=== PATIENT | male | born 1945 | race Caucasian/White ===

== ENCOUNTER 2020-07-21 13:58 | Inpatient (IN) ==
[2020-07-21] MEDS ORDERED: RAPID SEQUENCE INDUCTION BAG ONE (14:15)
[2020-07-21] MEDS ORDERED: cefTRIAXone SODIUM 1,000 MG/50 ML BAG IV STA (14:27)
[2020-07-21] MEDS ORDERED: AZITHROMYCIN 500 MG in DEXTROSE 5% 250 ML IV STA (14:27)
[2020-07-21] MEDS ORDERED: SODIUM CHLORIDE 0.9% 1000ML 1,000 ML IV SCH ×2 (14:30→20:30)
[2020-07-21] MEDS ORDERED: DEXAMETHASONE SOD INJ 10 MG/ML VIAL IV ONE (14:32)
[2020-07-21] MEDS ORDERED: ALBUTEROL HFA 8 GM INHALER INH ONE (14:32)
[2020-07-21 14:40] LABS: Basophils # (auto) 0.01 K/uL (0-0.2); Basophils % (auto) 0.2 %; Hematocrit (blood only) 42.8 % (42-52); Hemoglobin 14.6 g/dL (14.0-18.0); Immature Granulocytes # (auto) 0.05 K/uL (0.00-0.02); Immature Granulocytes % (auto) 0.8 %; Lymphocytes # (auto) 1.52 K/uL (1.2-3.4); Lymphocytes % (auto) 25.5 %; Mean Corpuscular Hemoglobin 29.9 pg (25-34); Mean Corpuscular Hgb Conc 34.1 g/dL (32-36); Mean Corpuscular Volume 87.7 fL (80-100); Mean Platelet Volume 10.9 fL (7.4-10.4); Monocytes # (auto) 0.61 K/uL (0.11-0.59); Monocytes % (auto) 10.2 %; Neutrophils # (auto) 3.78 K/uL (1.4-6.5); Neutrophils % (auto) 63.3 %; Platelet Count 244 K/uL (130-400); RDW Coefficient of Variation 14.2 % (11.5-14.5); RDW Standard Deviation 45.7 fL (36.4-46.3); Red Blood Count 4.88 M/uL (4.7-6.1); White Blood Count 5.97 K/uL (4.8-10.8)
--- NOTE | 2020-07-21 14:47 | Emergency Department Note ---
History of Present Illness General Chief complaint: Lethargic Time Seen by Provider: 07/21/20 14:13 Source: patient Mode of arrival: EMS Limitations: no limitations History of Present Illness Provider complaint: Lethargic This is a 75-year-old male who presents to the ED with a chief complaint of lethargy. The patient was diagnosed with COVID last , 1 week ago. He had the test done last Saturday. The patient has been doing okay but was found lethargic by family today. He seems confused. Pulse ox on room air when EMS arrived was 50%. 15 L brings him up into the high 80s to low 90s. He has had decreased p.o. intake. The patient's blood sugar here was 454 on arrival. He denies any cough. He does have some shortness of breath. He is able to speak full sentences without too much difficulty. He has generalized weakness. No additional symptoms. Home Medications Home Medications Medication Instructions Recorded Confirmed Type mupirocin 2 % topical ointment 1 appln TOP DAILY PRN gm 08/04/19 07/21/20 History repaglinide 2 mg tablet 2 mg PO AC 08/04/19 07/21/20 History sitagliptin 50 mg tablet 50 mg PO QAM 08/04/19 07/21/20 History triamcinolone acetonide 0.1 % 1 appln TOP DAILY PRN 08/04/19 07/21/20 History topical ointment atorvastatin 20 mg PO QPM 07/21/20 07/21/20 History glyburide 2.5 mg PO DAILYBB 07/21/20 07/21/20 History pioglitazone 45 mg PO QAM 07/21/20 07/21/20 History semaglutide [Rybelsus] 7 mg PO QAM 07/21/20 07/21/20 History valsartan-hydrochlorothiazide 1 tab PO QAM 07/21/20 07/21/20 History [Diovan HCT] Allergies Allergy/AdvReac Type Severity Reaction Status Date / Time No Known Allergies Allergy Verified 05/10/20 08:44 Past Med/Surg History Medical History (Updated 07/21/20 @ 17:42 by Jermaine Benavidez DO) CKD (chronic kidney disease), stage III Diabetes mellitus Dyslipidemia Vitamin D deficiency Surgical History (Updated 07/21/20 @ 17:20 by Dawna Montejo PA-C) History of tonsillectomy S/P complete thyroidectomy Family History (Updated 07/21/20 @ 17:21 by Dawna Montejo PA-C) Father Heart disease Mother Rheumatoid arthritis Social History (Updated 07/21/20 @ 17:21 by Dawna Montejo PA-C) Smoking Status: Former smoker Smoking End Date: 1992; Hx Alcohol Use: Yes (3 per week) Alcohol type: beer Alcohol Intake Frequency: 2-4 x/Month Hx Substance Use: No Feels Safe at Home: Yes Review of Systems A total of 10 systems reviewed and were otherwise negative Physical Exam Vital Signs Vital Signs - 24 hr 07/21/20 14:08 07/21/20 14:10 07/21/20 14:15 Temperature 37.1 C Temperature Source Oral Pulse Rate 102 H 108 H Pulse Rate from SpO2 Sensor 105 H Respiratory Rate 24 29 H Respiratory Effort / Characteristics Spontaneous Blood Pressure 119/67 Blood Pressure Mean 84 Pulse Oximetry 65 L 86 L 88 L Oxygen Delivery Method Room Air Non-rebreather Non-rebreather Oxygen Flow Rate 15 15 Sepsis Recent Fever Within 48 Hours No Sepsis New/Unexplained Change in Mental Status Yes Sepsis Action Taken by Nursing Physician Notified 07/21/20 14:16 07/21/20 14:28 07/21/20 14:30 Temperature Temperature Source Pulse Rate 108 H 108 H Pulse Rate from SpO2 Sensor 107 H 90 Respiratory Rate 32 H 29 H Respiratory Effort / Characteristics Blood Pressure 129/74 Blood Pressure Mean 82 Pulse Oximetry 85 L 88 L 91 Oxygen Delivery Method Non-rebreather Non-rebreather Non-rebreather Oxygen Flow Rate 15 15 15 Sepsis Recent Fever Within 48 Hours Sepsis New/Unexplained Change in Mental Status Sepsis Action Taken by Nursing 07/21/20 14:31 07/21/20 14:45 07/21/20 15:00 Temperature Temperature Source Pulse Rate 105 H 104 H 104 H Pulse Rate from SpO2 Sensor 96 H 84 85 Respiratory Rate 29 H 26 H 27 H Respiratory Effort / Characteristics Blood Pressure 128/84 132/69 Blood Pressure Mean 89 89 Pulse Oximetry 85 L 92 93 Oxygen Delivery Method Non-rebreather Non-rebreather Non-rebreather Oxygen Flow Rate 15 15 15 Sepsis Recent Fever Within 48 Hours Sepsis New/Unexplained Change in Mental Status Sepsis Action Taken by Nursing 07/21/20 15:15 07/21/20 15:30 07/21/20 15:45 Temperature Temperature Source Pulse Rate 107 H Pulse Rate from SpO2 Sensor 96 H 109 H Respiratory Rate Respiratory Effort / Characteristics Blood Pressure 117/70 120/66 117/63 Blood Pressure Mean 91 77 100 Pulse Oximetry 92 86 L Oxygen Delivery Method Non-rebreather Non-rebreather Oxygen Flow Rate 15 15 Sepsis Recent Fever Within 48 Hours Sepsis New/Unexplained Change in Mental Status Sepsis Action Taken by Nursing 07/21/20 16:00 07/21/20 16:15 07/21/20 16:30 Temperature Temperature Source Pulse Rate 103 H 106 H 105 H Pulse Rate from SpO2 Sensor 104 H 106 H Respiratory Rate 15 31 H 26 H Respiratory Effort / Characteristics Blood Pressure 110/63 98/61 L 109/59 L Blood Pressure Mean 79 66 82 Pulse Oximetry 86 L 88 L Oxygen Delivery Method Oxygen Flow Rate Sepsis Recent Fever Within 48 Hours Sepsis New/Unexplained Change in Mental Status Sepsis Action Taken by Nursing 07/21/20 16:47 07/21/20 16:59 07/21/20 17:15 Temperature Temperature Source Pulse Rate 101 H 105 H 102 H Pulse Rate from SpO2 Sensor 101 H 105 H 99 H Respiratory Rate 24 21 27 H Respiratory Effort / Characteristics Blood Pressure 98/62 L 111/69 117/67 Blood Pressure Mean 70 85 77 Pulse Oximetry 87 L 89 L 91 Oxygen Delivery Method Non-rebreather Non-rebreather Non-rebreather Oxygen Flow Rate 15 15 15 Sepsis Recent Fever Within 48 Hours Sepsis New/Unexplained Change in Mental Status Sepsis Action Taken by Nursing CONSTITUTIONAL/VITAL SIGNS: Reviewed / noted above. GENERAL: Non-toxic in appearance. INTEGUMENTARY: Warm, dry, and Ant[place]. HEAD: Normocephalic. EYES: without scleral icterus or trauma. ENT/OROPHARYNX: clear and moist. LYMPHADENOPATHY/NECK: Is supple without lymphadenopathy or meningismus. RESPIRATORY: Lungs diminished with some minimal bilateral crackles. Patient able to speak in full sentences. CARDIOVASCULAR: Regular rate and rhythm. GI/ABDOMEN: Soft and nontender. No organomegaly or pulsatile mass. No rebound or guarding. Normal bowel sounds. EXTREMITIES: Warm and well perfused. BACK: No CVA tenderness. NEUROLOGICAL: Intact without focal deficits. PSYCHIATRIC: normal affect. MUSCULOSKELETAL: Normally developed with good muscle tone. TRIAGE NURSING DOCUMENTATION REVIEWED. Procedures ABG Interpretation ABG Interpretation 1: ABG Results: 7.39/32 2.9% on 15 L Interpretation: abnormal and metabolic acidosis Additional Comments: Hypoxia but stable on 15 L Course Administered Medications Discontinued Medications Albuterol (Albuterol Hfa 8 Gm Inhaler) 2 puffs INH NOW ONE Stop: 07/21/20 14:33 Last Admin: 07/21/20 16:11 Dose: 2 puffs Documented by: [id number] Dexamethasone (Dexamethasone Sod Inj 10 Mg/Ml Vial) 10 mg IV NOW ONE Stop: 07/21/20 14:33 Last Admin: 07/21/20 16:11 Dose: 10 mg Documented by: [id number] Sodium Chloride (Nss 1000ml) 1,000 mls @ 999 mls/hr IV .Q1H1M JACKY Stop: 07/21/20 15:30 Last Infusion: 07/21/20 16:12 Dose: 0 mls/hr Documented by: [id number] Admin: 07/21/20 14:36 Dose: 999 mls/hr Documented by: [id number] Azithromycin 500 mg/ Dextrose 255 mls @ 127.5 mls/hr IV NOW STA Stop: 07/21/20 16:26 Last Admin: 07/21/20 16:41 Dose: 127.5 mls/hr Documented by: [id number] Ceftriaxone Sodium (Rocephin) 1,000 mg in 50 mls @ 100 mls/hr IV NOW STA Stop: 07/21/20 14:56 Last Infusion: 07/21/20 16:41 Dose: 0 mls/hr Documented by: [id number] Admin: 07/21/20 16:11 Dose: 100 mls/hr Documented by: [id number] Insulin Human Regular (Novolin-R Insulin Per Unit Charge) 4 units SC NOW STA Stop: 07/21/20 16:27 Last Admin: 07/21/20 16:41 Dose: 4 units Documented by: [id number] Cosigned by: [id number] Miscellaneous (Rapid Sequence Induction Bag) Confirm Administered Dose 1 ea .ROUTE .STK-MED ONE Stop: 07/21/20 14:16 Last Admin: 07/21/20 14:59 Dose: Not Given Documented by: [id number] Critical Care Time Critical Care Time: Yes Total Critical Care Time: 45 I have personally spent 45 minutes of critical care time in the direct management of this patient. This includes bedside care, interpretation of diagnostic studies, and testing, discussion with consultants, patient, and family members, and other required patient management activities. This 45 minutes is in excess of all separately billable procedures. Medical Decision Making Differential Diagnosis The differential was considered includes acute myocardial infarction, acute coronary syndrome, myocarditis, pericarditis, pericardial effusions /tamponad, esophageal perforation, pulmonary embolism, pneumonia, pneumothorax, cardiomyopathy, congestive heart, anemia , COPD/asthma exacerbation. Medical Records Attestation: I reviewed the patient's medical records. Home Medications Current Medication List: was personally reviewed by me Laboratory Data Attestation: I reviewed the patient's lab results. Result diagrams: 07/21/20 14:25 07/21/20 16:07 Lab Results 07/21/20 07/21/20 07/21/20 Range/Units 14:15 14:24 14:25 WBC (4.8-10.8) K/uL RBC (4.7-6.1) M/uL Hgb (14.0-18.0) g/dL Hct (42-52) % MCV (80-100) fL MCH (25-34) pg MCHC (32-36) g/dL RDW Std Deviation (36.4-46.3) fL RDW Coeff of Lesia (11.5-14.5) % Plt Count (130-400) K/uL MPV (7.4-10.4) fL Immature Gran % (Auto) % Neut % (Auto) % Lymph % (Auto) % [place] % (Auto) % Eos % (Auto) % Baso % (Auto) % Neut # (Auto) (1.4-6.5) K/uL Lymph # (Auto) (1.2-3.4) K/uL [place] # (Auto) (0.11-0.59) K/uL Eos # (Auto) (0-0.5) K/uL Baso # (Auto) (0-0.2) K/uL Immature Gran # (Auto) (0.00-0.02) K/uL PT (9.0-12.0) Seconds INR (0.9-1.1) APTT (21.0-31.0) Seconds PTT Ratio ABG pH (7.35-7.45) ABG pCO2 (35-46) mmHg ABG pO2 (80-95) mmHg ABG HCO3 (19-24) mmol/L ABG O2 Saturation (90-95) % ABG Base Excess (-9-1.8) mEq/L Andres Test (Pos) Barometric Pressure mm/Hg Oxygen Given Sodium 131 L (136-145) mmol/L Potassium (3.5-5.1) mmol/L Chloride 99 (98-107) mmol/L Carbon Dioxide 20 L (21-32) mmol/L Anion Gap 12.0 H (3-11) BUN 81 H (7-18) mg/dl Creatinine 2.47 H (0.6-1.4) mg/dl Est Cr Clr Drug Dosing 31.7 ml/min Est GFR ( Amer) 28.1 Est GFR (Non-Af Amer) 24.2 BUN/Creatinine Ratio 32.6 H (10-20) Glucose 441 H* (70-99) mg/dl POC Glucose 454 H* (70-99) mg/dl Lactate (0.4-2.0) mmol/L Calcium 8.7 (8.5-10.1) mg/dl Total Bilirubin 0.7 (0.2-1) mg/dl AST (15-37) U/L ALT 70 (12-78) U/L Alkaline Phosphatase 79 (45-117) U/L Troponin I 0.020 (0-0.045) ng/ml NT-Pro-B Natriuret Pep 124 (0-1800) pg/ml Total Protein 7.5 (6.4-8.2) gm/dl Albumin 2.9 L (3.4-5.0) gm/dl Globulin 4.6 H (2.5-4.0) gm/dl Albumin/Globulin Ratio 0.6 L (0.9-2) Beta-Hydroxybutyric Acd (0.2-2.81) mg/dl Adenovirus (PCR) Not Detected (NotDetected) B. pertussis DNA (PCR) Not Detected (NotDetected) B.parapertussis DNA PCR Not Detected (NotDetected) C. pneumoniae DNA (PCR) Not Detected (NotDetected) Coronavirus OC43 (PCR) Not Detected (NotDetected) Coronavirus HKU1 (PCR) Not Detected (NotDetected) Coronavirus 229E (PCR) Not Detected (NotDetected) COVID-19 PCR DETECTED A* (NotDetected) Coronavirus NL63 (PCR) Not Detected (NotDetected) Human Metapneumovir PCR Not Detected (NotDetected) Influenza Type A (PCR) Not Detected (NotDetected) Influenza Type B (PCR) Not Detected (NotDetected) M. pneumoniae (PCR) Not Detected (NotDetected) Parainfluenza 1 (PCR) Not Detected (NotDetected) Parainfluenza 2 (PCR) Not Detected (NotDetected) Parainfluenza 3 (PCR) Not Detected (NotDetected) Parainfluenza 4 (PCR) Not Detected (NotDetected) RSV (PCR) Not Detected (NotDetected) Entero/Rhino (PCR) Not Detected (NotDetected) 07/21/20 07/21/20 07/21/20 Range/Units 14:25 14:25 15:16 WBC 5.97 (4.8-10.8) K/uL RBC 4.88 (4.7-6.1) M/uL Hgb 14.6 (14.0-18.0) g/dL Hct 42.8 (42-52) % MCV 87.7 (80-100) fL MCH 29.9 (25-34) pg MCHC 34.1 (32-36) g/dL RDW Std Deviation 45.7 (36.4-46.3) fL RDW Coeff of Lesia 14.2 (11.5-14.5) % Plt Count 244 (130-400) K/uL MPV 10.9 H (7.4-10.4) fL Immature Gran % (Auto) 0.8 % Neut % (Auto) 63.3 % Lymph % (Auto) 25.5 % [place] % (Auto) 10.2 % Eos % (Auto) 0.0 % Baso % (Auto) 0.2 % Neut # (Auto) 3.78 (1.4-6.5) K/uL Lymph # (Auto) 1.52 (1.2-3.4) K/uL [place] # (Auto) 0.61 H (0.11-0.59) K/uL Eos # (Auto) 0.00 (0-0.5) K/uL Baso # (Auto) 0.01 (0-0.2) K/uL Immature Gran # (Auto) 0.05 H (0.00-0.02) K/uL PT 11.4 (9.0-12.0) Seconds INR 1.1 (0.9-1.1) APTT 30.7 (21.0-31.0) Seconds PTT Ratio 1.1 ABG pH 7.39 (7.35-7.45) ABG pCO2 32 L (35-46) mmHg ABG pO2 65 L (80-95) mmHg ABG HCO3 19 (19-24) mmol/L ABG O2 Saturation 90.9 (90-95) % ABG Base Excess -4.8 (-9-1.8) mEq/L Andres Test Pos (Pos) Barometric Pressure 733.7 mm/Hg Oxygen Given 15 LITERS Sodium (136-145) mmol/L Potassium (3.5-5.1) mmol/L Chloride (98-107) mmol/L Carbon Dioxide (21-32) mmol/L Anion Gap (3-11) BUN (7-18) mg/dl Creatinine (0.6-1.4) mg/dl Est Cr Clr Drug Dosing ml/min Est GFR ( Amer) Est GFR (Non-Af Amer) BUN/Creatinine Ratio (10-20) Glucose (70-99) mg/dl POC Glucose (70-99) mg/dl Lactate (0.4-2.0) mmol/L Calcium (8.5-10.1) mg/dl Total Bilirubin (0.2-1) mg/dl AST (15-37) U/L ALT (12-78) U/L Alkaline Phosphatase (45-117) U/L Troponin I (0-0.045) ng/ml NT-Pro-B Natriuret Pep (0-1800) pg/ml Total Protein (6.4-8.2) gm/dl Albumin (3.4-5.0) gm/dl Globulin (2.5-4.0) gm/dl Albumin/Globulin Ratio (0.9-2) Beta-Hydroxybutyric Acd (0.2-2.81) mg/dl Adenovirus (PCR) (NotDetected) B. pertussis DNA (PCR) (NotDetected) B.parapertussis DNA PCR (NotDetected) C. pneumoniae DNA (PCR) (NotDetected) Coronavirus OC43 (PCR) (NotDetected) Coronavirus HKU1 (PCR) (NotDetected) Coronavirus 229E (PCR) (NotDetected) COVID-19 PCR (NotDetected) Coronavirus NL63 (PCR) (NotDetected) Human Metapneumovir PCR (NotDetected) Influenza Type A (PCR) (NotDetected) Influenza Type B (PCR) (NotDetected) M. pneumoniae (PCR) (NotDetected) Parainfluenza 1 (PCR) (NotDetected) Parainfluenza 2 (PCR) (NotDetected) Parainfluenza 3 (PCR) (NotDetected) Parainfluenza 4 (PCR) (NotDetected) RSV (PCR) (NotDetected) Entero/Rhino (PCR) (NotDetected) 07/21/20 07/21/20 Range/Units 15:16 16:07 WBC (4.8-10.8) K/uL RBC (4.7-6.1) M/uL Hgb (14.0-18.0) g/dL Hct (42-52) % MCV (80-100) fL MCH (25-34) pg MCHC (32-36) g/dL RDW Std Deviation (36.4-46.3) fL RDW Coeff of Lesia (11.5-14.5) % Plt Count (130-400) K/uL MPV (7.4-10.4) fL Immature Gran % (Auto) % Neut % (Auto) % Lymph % (Auto) % [place] % (Auto) % Eos % (Auto) % Baso % (Auto) % Neut # (Auto) (1.4-6.5) K/uL Lymph # (Auto) (1.2-3.4) K/uL [place] # (Auto) (0.11-0.59) K/uL Eos # (Auto) (0-0.5) K/uL Baso # (Auto) (0-0.2) K/uL Immature Gran # (Auto) (0.00-0.02) K/uL PT (9.0-12.0) Seconds INR (0.9-1.1) APTT (21.0-31.0) Seconds PTT Ratio ABG pH (7.35-7.45) ABG pCO2 (35-46) mmHg ABG pO2 (80-95) mmHg ABG HCO3 (19-24) mmol/L ABG O2 Saturation (90-95) % ABG Base Excess (-9-1.8) mEq/L Andres Test (Pos) Barometric Pressure mm/Hg Oxygen Given Sodium (136-145) mmol/L Potassium 4.7 (3.5-5.1) mmol/L Chloride (98-107) mmol/L Carbon Dioxide (21-32) mmol/L Anion Gap (3-11) BUN (7-18) mg/dl Creatinine (0.6-1.4) mg/dl Est Cr Clr Drug Dosing ml/min Est GFR ( Amer) Est GFR (Non-Af Amer) BUN/Creatinine Ratio (10-20) Glucose (70-99) mg/dl POC Glucose (70-99) mg/dl Lactate 1.5 (0.4-2.0) mmol/L Calcium (8.5-10.1) mg/dl Total Bilirubin (0.2-1) mg/dl AST 49 H (15-37) U/L ALT (12-78) U/L Alkaline Phosphatase (45-117) U/L Troponin I (0-0.045) ng/ml NT-Pro-B Natriuret Pep (0-1800) pg/ml Total Protein (6.4-8.2) gm/dl Albumin (3.4-5.0) gm/dl Globulin (2.5-4.0) gm/dl Albumin/Globulin Ratio (0.9-2) Beta-Hydroxybutyric Acd 2.30 (0.2-2.81) mg/dl Adenovirus (PCR) (NotDetected) B. pertussis DNA (PCR) (NotDetected) B.parapertussis DNA PCR (NotDetected) C. pneumoniae DNA (PCR) (NotDetected) Coronavirus OC43 (PCR) (NotDetected) Coronavirus HKU1 (PCR) (NotDetected) Coronavirus 229E (PCR) (NotDetected) COVID-19 PCR (NotDetected) Coronavirus NL63 (PCR) (NotDetected) Human Metapneumovir PCR (NotDetected) Influenza Type A (PCR) (NotDetected) Influenza Type B (PCR) (NotDetected) M. pneumoniae (PCR) (NotDetected) Parainfluenza 1 (PCR) (NotDetected) Parainfluenza 2 (PCR) (NotDetected) Parainfluenza 3 (PCR) (NotDetected) Parainfluenza 4 (PCR) (NotDetected) RSV (PCR) (NotDetected) Entero/Rhino (PCR) (NotDetected) Imaging Data Radiologist's Impression: XR chest 1V portable CLINICAL HISTORY: Dyspnea COMPARISON STUDY: No previous studies for comparison. FINDINGS: The heart is the upper limits of normal in size. There are bilateral interstitial pulmonary opacities with a lower lung zone predominance. Diagnostic considerations include chronic interstitial lung disease, an acute interstitial inflammatory process, or pulmonary edema superimposed on chronic lung disease. There are no significant pleural effusions.[Clinical and radiographic follow-up is advocated IMPRESSION: Nonspecific bilateral interstitial pulmonary opacities with a lower lung zone predominance. ECG Data Attestation: I personally reviewed and interpreted this ECG as follows: Indication: + SOB/dyspnea Rate (beats per minute): [address] segments: no ST elevation ECG Findings: + PVCs MDM Narrative This is a 75-year-old male who presents with hypoxia and confusion at home. He has had decreased p.o. intake and lethargy. He was found to have 50% saturations on room air at home by EMS. On my exam, the patient is more alert. He answers most questions appropriately. He is on 15 L saturating 87%. He is able to speak full sentences with out much difficulty. Heart rate was 105 and his blood pressure was normal. A blood sugar when he arrived was 454. The patient ABG suggest hypoxia although it appears the patient has adequate comp ensated at this time. His BUN is 81 and creatinine is 2.47. This likely represents acute renal failure although a baseline is not present in the system. The patient is hyperglycemic with a blood sugar of 441. Troponin was negative. Lactic acid is negative. CBC was normal. The patient was given 1 L of normal saline IV. He was given an albuterol MDI, IV Decadron, IV Rocephin, IV Zithromax as well as subcu insulin. At this point, the patient although hypoxic is speaking in full sentences. He is in no respiratory distress. I do not feel the patient requires emergent intubation or BiPAP at this point because his clinical evaluation of his breathing appears adequate despite pulse ox binta dings in the 80s. He will be seen by the hospitalist for further inpatient evaluation and care Impression & Plan Respiratory failure, Bilateral interstitial pneumonia, COVID-19, Acute renal failure Discharge Plan Visit Data Chief Complaint: Lethargic ED Provider: Jermaine Benavidez Discharge Problem: Respiratory failure, Bilateral interstitial pneumonia, COVID-19, Acute renal failure Patient Disposition: Being Evaluated by Hospitalist Forms Stand Alone Forms: My [facility] Prescriptions Prescriptions: No Action triamcinolone acetonide 0.1 % ointment 1 appln TOP DAILY PRN (Reason: Skin Irritation) RF: 0 mupirocin 2 % ointment 1 appln TOP DAILY PRN (Reason: Skin Irritation) RF: 0 Januvia 50 mg tablet 50 mg PO QAM RF: 0 repaglinide [Prandin] 2 mg tablet 2 mg PO AC RF: 0 atorvastatin 20 mg tablet 20 mg PO QPM RF: 0 glyburide 2.5 mg tablet 2.5 mg PO DAILYBB RF: 0 valsartan-hydrochlorothiazide [Diovan HCT] 160-12.5 mg tablet 1 tab PO QAM RF: 0 pioglitazone 45 mg tablet 45 mg PO QAM RF: 0 Rybelsus 7 mg tablet 7 mg PO QAM RF: 0 Referrals Referrals: William Barfield DO [Primary Care Provider] - Discharge Problem: Respiratory failure Qualifiers: Chronicity: acute Respiratory failure complication: hypoxia Qualified Code(s): J96.01 - Acute respiratory failure with hypoxia Acute renal failure Qualifiers: Acute renal failure type: unspecified Qualified Code(s): N17.9 - Acute kidney failure, unspecified
[2020-07-21 14:55] LABS: INR 1.1 (0.9-1.1); Partial Thromboplastin Ratio 1.1; Partial Thromboplastin Time 30.7 Seconds (21.0-31.0); Prothrombin Time 11.4 Seconds (9.0-12.0)
[2020-07-21 15:35] LABS: Allen Test Pos (Pos); Base Excess ABG -4.8 mEq/L (-9-1.8); HCO3 ABG 19 mmol/L (19-24); Oxygen Saturation ABG 90.9 % (90-95); PCO2 ABG 32 mmHg (35-46); PO2 ABG 65 mmHg (80-95); pH ABG 7.39 (7.35-7.45)
[2020-07-21 15:44] LABS: Adenovirus PCR Not Detected (NotDetected); Bordetella parapertussis PCR Not Detected (NotDetected); Bordetella pertussis PCR Not Detected (NotDetected); Chlamydia pneumoniae PCR Not Detected (NotDetected); Coronavirus 229E PCR Not Detected (NotDetected); Coronavirus HKU1 PCR Not Detected (NotDetected); Coronavirus NL63 PCR Not Detected (NotDetected); Coronavirus OC43PCR Not Detected (NotDetected); Human Metapneumovirus PCR Not Detected (NotDetected); Influenza A PCR Not Detected (NotDetected); Influenza B PCR Not Detected (NotDetected); Mycoplasma pneumoniae PCR Not Detected (NotDetected); Parainfluenza Virus 1 PCR Not Detected (NotDetected); Parainfluenza Virus 2 PCR Not Detected (NotDetected); Parainfluenza Virus 3 PCR Not Detected (NotDetected); Parainfluenza Virus 4 PCR Not Detected (NotDetected); Respiratory Syncytial VirusPCR Not Detected (NotDetected); Rhinovirus/Enterovirus PCR Not Detected (NotDetected)
[2020-07-21 15:48] LABS: Albumin Globulin Ratio 0.6 (0.9-2); Albumin Level 2.9 gm/dl (3.4-5.0); BUN Creatinine Ratio 32.6 (10-20); Bilirubin,Total 0.7 mg/dl (0.2-1); Calcium 8.7 mg/dl (8.5-10.1); Creatinine Clr Calc Pharmacy 31.7 ml/min; Est GFR (African American) 28.1; Est GFR (Non-African American) 24.2; Globulin 4.6 gm/dl (2.5-4.0); Total Protein 7.5 gm/dl (6.4-8.2); Troponin I 0.02 ng/ml (0-0.045)
[2020-07-21 15:52] LABS: Coronavirus CoV-2 (COVID19)PCR DETECTED (NotDetected)
--- NOTE | 2020-07-21 15:59 | XRay Report ---
XR chest 1V portable CLINICAL HISTORY: Dyspnea COMPARISON STUDY: No previous studies for comparison. FINDINGS: The heart is the upper limits of normal in size. There are bilateral interstitial pulmonary opacities with a lower lung zone predominance. Diagnostic considerations include chronic interstitia l lung disease, an acute interstitial inflammatory process, or pulmonary edema superimposed on chroni c lung disease. There are no significant pleural effusions.[Clinical and radiographic follow-up is ad vocated IMPRESSION: Nonspecific bilateral interstitial pulmonary opacities with a lower lung zone predominanc e. ACT 112: Negative or not required by law. Electronically signed by: Yomi Saab M.D. 07/21/2020 3:58 PM
[2020-07-21] MEDS ORDERED: NovoLIN-R INSULIN PER UNIT CHARGE SC STA (16:26)
[2020-07-21 16:32] LABS: Potassium 4.7 mmol/L (3.5-5.1)
[2020-07-21 16:38] LABS: Beta-Hydroxybutyrate 2.3 mg/dl (0.2-2.81)
--- NOTE | 2020-07-21 17:28 | History & Physical Report ---
Date of Service July 21, 2020 Assessment & Plan (1) Respiratory failure: Acute respiratory failure with hypoxia COVID-19 pneumonia CXR:Nonspecific bilateral interstitial pulmonary opacities with a lower lung zone predominance. Discussed with patient regarding initiation Remdesivir--Risks and benefits explained:Patient agrees to proceed Currently given renal function, Remdesivir will not be started We will consider starting Remdesivir if renal function improves No leukocytosis Or lymphopenia on presentation Procalcitonin, CRP, Ferritin, procalcitonin, D-dimer, CPK pending Blood cultures ordered Discussed with pulmonology Started on dexamethasone Empirically started on azithromycin, ceftriaxone Monitor QTC IV fluids given KADEN Monitor volume status Albuterol as needed Consulted pulmonology Continue supplemental oxygen to keep sats greater than or equal to 94% KADEN on CKD III Hyponatremia in setting of hypoglycemia Prerenal secondary to GI losses Baseline Cr:1.6 Cr: 2.47 Hold valsartan, HCTZ IV fluids Nephrology consulted Monitor renal function Avoid nephrotoxic agents as able Hyperglycemia DM II HbA1c 9.3 on May 10, 2020 Update A1c Hold p.o. medications Insulin therapy while hospitalized Glycemic pharmacy consulted Diarrhea Likely due to COVID Check Stool studies Hyperlipidemia Continue atorvastatin Hypertension Hold valsartan, HCTZ given KADEN Monitor blood pressure H/O basal cell carcinoma H/O squamous cell carcinoma As per records H/O Vitamin D deficiency Check Vit D levels DVT prophylaxis Heparin SQ CODE STATUS Full code--as per my discussion with the patient. Disposition To be determined History of Present Illness Chief Complaint: Cough, shortness of breath, diarrhea Primary Care Provider: William Barfield DO Patient is a 75-year-old male with history of diabetes mellitus, hypertension, CKD stage III, hypertensive retinopathy, dyslipidemia and other medical problems presents with history of worsening shortness of breath, wheezing, shakiness, cough since about 1 week duration. He was diagnosed to have COVID last --test done at local [facility]. He states that cough is nonproductive. Also noticed to have diarrhea since 1 week duration--loose watery, about 2 times per day, nonbloody. He was unsure how he contracted COVID. Reports generalized weakness and tiredness. As per the ER physician, patient was found to be confused by family today and patient's son called for ambulance. Patient reported that he was now confused throughout the course. He was noted to have oxygen saturations in the 50s by EMS and was placed on 15 L of nonrebreather. Currently while in ED saturations improved to low 90s. Denies any history of chest pain, palpitations, dizziness, pedal edema, hemoptysis, fever, fall, LOC, headache, change in vision, nausea, vomiting, abdominal pain, blood in stools, dysuria, hematuria, recent change in medications. Allergies Allergy/AdvReac Type Severity Reaction Status Date / Time No Known Allergies Allergy Verified 05/10/20 08:44 Home Medications Home Medications Medication Instructions Recorded Confirmed Type mupirocin 2 % topical ointment 1 appln TOP DAILY PRN gm 08/04/19 07/21/20 His tory repaglinide 2 mg tablet 2 mg PO AC 08/04/19 07/21/20 History sitagliptin 50 mg tablet 50 mg PO QAM 08/04/19 07/21/20 History triamcinolone acetonide 0.1 % 1 appln TOP DAILY PRN 08/04/19 07/21/20 History topical ointment atorvastatin 20 mg PO QPM 07/21/20 07/21/20 History glyburide 2.5 mg PO DAILYBB 07/21/20 07/21/20 History pioglitazone 45 mg PO QAM 07/21/20 07/21/20 History semaglutide [Rybelsus] 7 mg PO QAM 07/21/20 07/21/20 History valsartan-hydrochlorothiazide 1 tab PO QAM 07/21/20 07/21/20 History [Diovan HCT] Past Med/Surg History Medical History CKD (chronic kidney disease), stage III Diabetes mellitus Dyslipidemia Vitamin D deficiency Surgical History History of tonsillectomy S/P complete thyroidectomy Family History Father Heart disease Mother Rheumatoid arthritis Social History Smoking Status: Former smoker Smoking End Date: 1992; Hx Alcohol Use: Yes (3 per week) Alcohol type: beer Alcohol Intake Frequency: 2-4 x/Month Hx Substance Use: No Feels Safe at Home: Yes Review of Systems Review of Systems: All systems reviewed & are unremarkable except as noted in HPI & below Physical Exam Physical Exam: Physical Exam: Vitals signs as noted above General Appearance:Moderately built and nourished, no apparent distress Head: normocephalic, Atraumatic Eyes: normal inspection, EOMI Neck: supple, Trachea midline Respiratory/Chest: Decreased breath sounds, +Basal Crackles Cardiovascular: S1, S2, No murmur Abdomen/GI:Soft, Non tender, Bowel sounds present Extremities/Musculoskelatal:normal inspection, no edema Neurologic/Psych:AAOX3, grossly no focal neurological deficits Skin: normal color, warm Results & Data Results & Data ([facility]) Vital Signs (Past 12 Hours) Vital Signs Temp Pulse Resp BP Pulse Ox 07/21/20 14:45 104 H 26 H 128/84 92 07/21/20 14:31 105 H 29 H 85 L 07/21/20 14:30 108 H 29 H 129/74 91 07/21/20 14:28 88 L 07/21/20 14:16 108 H 32 H 85 L 07/21/20 14:15 108 H 29 H 119/67 88 L 07/21/20 14:10 86 L 07/21/20 14:08 37.1 C 102 H 24 65 L Laboratory Results Short CBC 07/21/20 Range/Units 14:25 WBC 5.97 (4.8-10.8) K/uL Hgb 14.6 (14.0-18.0) g/dL Hct 42.8 (42-52) % Plt Count 244 (130-400) K/uL BMP 07/21/20 07/21/20 14:25 16:07 Sodium 131 L Potassium 4.7 Chloride 99 Carbon Dioxide 20 L BUN 81 H Creatinine 2.47 H Glucose 441 H* Calcium 8.7 Cardiac Enzymes 07/21/20 Range/Units 14:25 Troponin I 0.020 (0-0.045) ng/ml Liver Function 07/21/20 07/21/20 Range/Units 14:25 16:07 Total Bilirubin 0.7 (0.2-1) mg/dl AST 49 H (15-37) U/L ALT 70 (12-78) U/L Alkaline Phosphatase 79 (45-117) U/L Albumin 2.9 L (3.4-5.0) gm/dl Diagnostic Findings CXR:Nonspecific bilateral interstitial pulmonary opacities with a lower lung zone predominance. ECG Additional Comments: EKG: Sinus tachycardia with occasional PVCs Left axis deviation Poor R wave progression, QTC 417 (1) Respiratory failure Chronicity: acute Respiratory failure complication: hypoxia Qualified Code(s): J96.01 - Acute respiratory failure with hypoxia
--- NOTE | 2020-07-21 18:00 | Electrocardiogram Report ---
Test Reason : Blood Pressure : / mmHG Vent. Rate : 109 BPM Atrial Rate : 109 BPM P-R Int : 190 ms QRS Dur : 070 ms QT Int : 310 ms P-R-T Axes : 021 -65 050 degrees QTc Int : 417 ms Sinus tachycardia with occasional Premature ventricular complexes Possible Left atrial enlargement Left axis deviation Inferior infarct , age undetermined Poor R wave progression, consider anterior MN vs. lead placement vs. LVH Abnormal ECG When compared with ECG of 20-NOV-1993 10:58, Premature ventricular complexes are now Present Inferior infarct is now Present Confirmed by David Segura ([id number]) on 07/21/2020 6:00:31 PM Referred By: Confirmed By:Adrian Segura
[2020-07-21] MEDS ORDERED: GLUCAGON FOR INJ 1 MG VIAL SQ PRN (20:18)
[2020-07-21] MEDS ORDERED: ALBUTEROL HFA 8 GM INHALER INH PRN (20:18)
[2020-07-21] MEDS ORDERED: ONDANSETRON INJ 2 MG/ML 2 ML VIAL IV PRN (20:18)
[2020-07-21] MEDS ORDERED: DEXTROSE 50% 50 ML SYRINGE IV PRN (20:18)
[2020-07-21] MEDS ORDERED: ACETAMINOPHEN 325 MG TAB PO PRN (20:18)
[2020-07-21] MEDS ORDERED: CARBOHYDRATES FOR HYPOGLYCEMIA PO PRN (20:18)
[2020-07-21] MEDS ORDERED: GLUCOSE 10 TABS/TUBE PO PRN (20:18)
[2020-07-21] MEDS ORDERED: POLYETHYLENE (MIRALAX) 17 GM PACK PO PRN (20:18)
[2020-07-21] MEDS ORDERED: GLUCOSE 40% GEL 15 GM TUBE PO PRN (20:18)
[2020-07-21] MEDS ORDERED: PHARMACY GLYCEMIC MGMT CONSULT PRN (20:33)
[2020-07-21] MEDS ORDERED: INSULIN ASPART 100 UNITS/ML 3 ML PEN SC SCH (21:00)
[2020-07-21 21:32] LABS: D Dimer 6760 ug/L FEU (0-500)
[2020-07-21 21:39] LABS: C Reactive Protein 2.35 mg/dl (0-0.29); Ferritin 2518.9 ng/ml (8-388)
[2020-07-21] MEDS: ATORVASTATIN 20 MG TAB PO SCH (21:48)
[2020-07-21] MEDS: FAMOTIDINE 10 MG TABLET PO SCH (21:49)
[2020-07-21] MEDS ORDERED: INSULIN HUMAN REGULAR IV BOLUS 2.5 UNITS in SYRINGE 0 ML IV ONE (22:45)
[2020-07-22] MEDS ORDERED: INSULIN ASPART 100 UNITS/ML 3 ML PEN SC SCH
[2020-07-22] MEDS: NSS + 20MEQ KCL 20 MEQ/1,000 ML BAG IV SCH ×2 (00:35→08:18)
[2020-07-22] MEDS: INSULIN REGULAR 250 UNITS in SODIUM CHLORIDE 0.9% 247.5 ML IV SCH (01:29)
[2020-07-22] MEDS: INSULIN GLARGINE SOLOSTAR 100 UNITS/ML 3 ML PEN SC SCH ×3 (01:32→22:05)
[2020-07-22] MEDS: HEPARIN SOD 5,000 UNIT/0.5 ML VIAL SQ SCH ×2 (01:32→05:11)
[2020-07-22 06:02] LABS: Basophils # (auto) 0.01 K/uL (0-0.2); Basophils % (auto) 0.2 %; Hemoglobin 14.9 g/dL (14.0-18.0); Immature Granulocytes # (auto) 0.05 K/uL (0.00-0.02); Immature Granulocytes % (auto) 0.9 %; Lymphocytes # (auto) 1.97 K/uL (1.2-3.4); Lymphocytes % (auto) 34.7 %; Mean Corpuscular Hemoglobin 28.7 pg (25-34); Mean Corpuscular Hgb Conc 32.4 g/dL (32-36); Mean Corpuscular Volume 88.5 fL (80-100); Mean Platelet Volume 10.4 fL (7.4-10.4); Monocytes # (auto) 0.51 K/uL (0.11-0.59); Neutrophils # (auto) 3.13 K/uL (1.4-6.5); Neutrophils % (auto) 55.2 %; Platelet Count 236 K/uL (130-400); RDW Coefficient of Variation 14.2 % (11.5-14.5); RDW Standard Deviation 46.3 fL (36.4-46.3); White Blood Count 5.67 K/uL (4.8-10.8)
[2020-07-22 06:10] LABS: Base Excess VBG -3.4 mEq/L; HCO3 VBG 22 mmol/L; Oxygen Saturation VBG < 60.0 %; PCO2 VBG 43 mmHg (38-50); PO2 VBG 32 mmHg; pH VBG 7.34 (7.36-7.41)
[2020-07-22 06:12] LABS: Estimated Average Glucose 246 mg/dl; Hemoglobin A1C 10.2 % (4.5-5.6)
[2020-07-22 06:51] LABS: Albumin Globulin Ratio 0.5 (0.9-2); Albumin Level 2.7 gm/dl (3.4-5.0); BUN Creatinine Ratio 36.9 (10-20); Bilirubin,Total 0.5 mg/dl (0.2-1); Creatinine Clr Calc Pharmacy 33.3 ml/min; Est GFR (Non-African American) 28.5; Globulin 5.1 gm/dl (2.5-4.0); Magnesium 2.8 mg/dl (1.8-2.4); Potassium 4.8 mmol/L (3.5-5.1); Total Protein 7.8 gm/dl (6.4-8.2)
[2020-07-22 07:01] LABS: Beta-Hydroxybutyrate 2.5 mg/dl (0.2-2.81)
[2020-07-22] MEDS: cefTRIAXone SODIUM 2,000 MG in DEXTROSE 5% 50 ML IV SCH (08:18)
[2020-07-22] MEDS: AZITHROMYCIN 250 MG TAB PO SCH (08:19)
[2020-07-22] MEDS ORDERED: dexAMETHasone 6 MG in DEXTROSE 5% 25 ML IV SCH (09:00)
[2020-07-22] MEDS ORDERED: DEXAMETHASONE SOD PHOSPHATE 6 MG in SYRINGE 0 ML IV SCH (09:00)
[2020-07-22] MEDS: FAMOTIDINE 10 MG TABLET PO SCH ×2 (09:27→22:57)
[2020-07-22] MEDS: INSULIN ASPART 100 UNITS/ML 3 ML PEN SC SCH ×4 (09:27→22:01)
--- NOTE | 2020-07-22 11:55 | Consultation Report ---
DATE OF CONSULTATION: 07/22/2020 NEPHROLOGY CONSULTATION NOTE REASON FOR CONSULT: Acute renal failure in a patient who has COVID-19 infection. HISTORY OF PRESENT ILLNESS: The patient is a 75-year-old male with type 2 diabetes, uncontrolled hypertension, chronic kidney disease stage III with baseline creatinine in the mid 1s, hypertensive retinopathy, dyslipidemia and other medical problems who presented to the Emergency Department yesterday with worsening shortness of breath, wheezing, chills and cough for almost 1 week. He had an outpatient COVID testing done on Saturday, and 3 days later, the test came back positive. Cough was nonproductive. In the Emergency Department, he was found to have bilateral pneumonia consistent with COVID infection. He was also having 1 week of watery diarrhea few times per day. He was unsure how he contracted COVID. The patient reports extreme weakness and fatigue as well as body ache. The patient was noted to be very hypoxic by the Emergency Department and was placed on a 15 L of nonrebreather mask. His oxygen saturation has improved at this time with fairly significant supplemental oxygen. He does have mild history of CKD and has seen a diazo technician in the past, but not recently. ALLERGIES: None. HOME MEDICATIONS: List was reviewed in detail and is as per the reconciliation list. Of special interest to nephrology, he was taking valsartan/hydrochlorothiazide. PAST MEDICAL AND SURGICAL HISTORY: Chronic kidney disease stage III, longstanding type 2 diabetes, hyperlipidemia, tonsillectomy, complete thyroidectomy. FAMILY HISTORY: Negative for renal disease or dialysis. SOCIAL HISTORY: Former smoker, occasional alcohol. No drugs. He lives in his home. REVIEW OF SYSTEMS: Hard to obtain at this time given the patient's shortness of breath, but it is already detailed in HPI. Unless stated otherwise in HPI, 12 systems reviewed and negative. PHYSICAL EXAMINATION: GENERAL: Elderly white male who does appear to be in some [id number] respiratory distress. He was still able to speak fairly long sentence without short of breath. VITAL SIGNS: Blood pressure 114/69, pulse rate 96, temperature 36.3 degrees Celsius, 87% on high-flow nasal cannula. CHEST: Bilateral decreased breath sounds, crackles and rhonchi heard, especially at the bases. CARDIOVASCULAR: S1 and S2, regular. ABDOMEN: Soft, nontender. EXTREMITIES: Showed no edema. NEUROLOGIC: He is awake and alert and fairly oriented. LABORATORY TESTS: At the time of admission, he did have acute renal failure with a creatinine of 2.47 up from his baseline of low to mid 1s. This morning it is down a little bit to 2.16. He had elevated glucose of 426 and it is still somewhat high. BUN is 80, creatinine 2.16, sodium 134, potassium 4.8, magnesium 2.8, albumin 2.7. Ferritin is very high at 2500. CRP minimally elevated. BNP was normal at 124. Chest x-ray shows bilateral pneumonia consistent with COVID. ASSESSMENT AND PLAN: A 75-year-old male with longstanding uncontrolled type 2 diabetes with chronic kidney disease stage III, now admitted with COVID pneumonia. The patient is requiring significant amount of supplemental oxygen. He was sick for almost 7-10 days with respiratory as well as gastrointestinal symptoms. He has acute renal failure in the setting of symptomatic severe COVID infection. Acute renal failure: This appears to be prerenal in etiology secondary to ongoing diarrhea, poor oral intake and COVID-19 infection. Creatinine this morning is slightly better than yesterday, which is very encouraging. However, it is well known that COVID-19 patients are at risk from both acute tubular necrosis as well as primary renal involvement related with the viral infection itself. I would continue with IV fluid for the time being as he still appears to be volume depleted. Continue normal saline. He also had fairly elevated blood glucose, which obviously did not help and probably added to dehydration by causing osmotic diuresis. Continue to get glucose under control. No further workup is needed for the acute renal failure. If we can, I would like to check his urine one more time, UA and protein to creatinine ratio have been sent.
[2020-07-22] MEDS: ENOXAPARIN 100 MG/1ML SYR SQ SCH ×2 (12:18→22:56)
--- NOTE | 2020-07-22 14:36 | Pulmonary Consultation ---
Date of Consultation July 22, 2020 Assessment & Plan (1) COVID-19: Impression: 75-year-old male with diabetes admitted with COVID-19 infection and pneumonia with hypoxemic respiratory failure. He is currently receiving dexamethasone. He is not a candidate for Remdesivir due to renal function. Recommendations: 1. Hypoxemic respiratory failure due to novel coronavirus infection. Continue dexamethasone. Given the fact that the patient is 7 days out from his symptoms, I do not think convalescent plasma would offer him a significant benefit at this point time. In addition he is unable to receive Remdesevir due to his current renal dysfunction. Continue supportive care. Will continue high flow oxygen as tolerated. Discussed with nursing staff to try having the patient self prone to try and improve VQ mismatch. He has been started on antibiotics in the form of Rocephin and azithromycin but I do not see evidence of pneumonia on his current films. Ideally would like to pursue a trial of diuresis to try and keep the lungs as dry as possible however this is complicated by his acute kidney injury currently. 2. Dexamethasone likely worsening his diabetes. Recommend aggressive control of hyperglycemia by primary service. 3. Should the patient's clinical condition worsen, could consider transitioning from high flow oxygen to BiPAP. Would like to avoid intubation if possible however the patient is at high risk of clinical deterioration and potential need for mechanical ventilation. Should he progress to that point and have concomitant kidney injury requiring dialysis, his prognosis would be very guarded and potentially discussing with the patient and family advanced directives prior to instituting those measures would be appropriate and encouraged. We will continue to follow with you. (2) Respiratory failure: Chronicity: acute Respiratory failure complication: hypoxia Qualified Code(s): J96.01 - Acute respiratory failure with hypoxia History of Present Illness Attending Physician: René Lopes MD History of Present Illness Asked by hospitalist to assist in evaluation management this patient with hypox emic respiratory failure secondary to COVID-19 pneumonia. History is obtained from review the electronic medical record. Due to COVID-19 restrictions and efforts to reduce exposure to staff and conserve PPE. The patient was not directly interviewed. The patient is a 75-year-old male with a history of diabetes chronic kidney disease who presented to the emergency room 07/21 with shortness of breath wheezing and cough of 1 weeks duration. He was diagnosed with COVID 8 days ago through a local pharmacy. He is also had some loose stools. He was found to be confused and had low oxygen saturations and was placed on a nonrebreather initially. Due to the kidney function he was not felt to be a candidate for Remdesivir. He has been started on dexamethasone as well as azithromycin and Rocephin. Nephrology has been consulted to assist in his management. They recommended continued IV fluids and better control of his diabetes. Allergies Allergy/AdvReac Type Severity Reaction Status Date / Time No Known Allergies Allergy Verified 05/10/20 08:44 Home Medications Home Medications Medication Instructions Recorded Confirmed Type mupirocin 2 % topical ointment 1 appln TOP DAILY PRN gm 08/04/19 07/21/20 History repaglinide 2 mg tablet 2 mg PO AC 08/04/19 07/21/20 History sitagliptin 50 mg tablet 50 mg PO QAM 08/04/19 07/21/20 History triamcinolone acetonide 0.1 % 1 appln TOP DAILY PRN 08/04/19 07/21/20 History topical ointment atorvastatin 20 mg PO QPM 07/21/20 07/21/20 History glyburide 2.5 mg PO DAILYBB 07/21/20 07/21/20 History pioglitazone 45 mg PO QAM 07/21/20 07/21/20 History semaglutide [Rybelsus] 7 mg PO QAM 07/21/20 07/21/20 History valsartan-hydrochlorothiazide 1 tab PO QAM 07/21/20 07/21/20 History [Diovan HCT] Patient History Medical History CKD (chronic kidney disease), stage III Diabetes mellitus Dyslipidemia Vitamin D deficiency Surgical History History of tonsillectomy S/P complete thyroidectomy Family History Father Heart disease Mother Rheumatoid arthritis Social History Smoking Status: Former smoker Smoking End Date: 1992; Second Hand Exposure: No; Do You Dip or Chew Tobacco: No; Tobacco Cessation Education Requested by Patient: No Hx Alcohol Use: Yes Alcohol type: hard liquor Alcohol Intake Frequency: 2-4 x/Month Hx Substance Use: No Communication Ability: Effective Seam Taper Machine Required: No Beliefs That Will Affect Care: None Current Living Situation: Spouse Other Information That Helps Us Care for You: No Feels Safe at Home: Yes Safety Concerns: Feels Safe At This Time Assistive Devices: None Review of Systems Review of Systems: Please refer to admission H&P. No additions or deletions Physical Exam Physical Exam: Patient not examined due to coronavirus restrictions and attemp ts to minimize exposure to staff and consider PPE. Please refer to the hospitalist exam for complete details. I did evaluate the patient through the window and discussed with nursing. He appears to be breathing comfortably on high flow heated oxygen at 100% and 40 L/min Results & Data Results & Data ([facility]) Vital Signs (Past 12 Hours) Vital Signs Temp Pulse Resp BP Pulse Ox Pulse Ox 07/22/20 11:53 36.2 C L 93 H 22 95/58 L 91 07/22/20 08:40 96 H 24 87 L 07/22/20 08:06 36.3 C L 91 H 20 114/69 80 L 07/22/20 05:19 87 L 07/22/20 04:00 37 C 82 22 119/67 87 L Laboratory Results 07/22/20 05:47 07/22/20 05:47 D-dimer 6760 Blood gas showed a pH 739 with a PCO2 of 32 and PO2 of 65 Hemoglobin A1c of 10.2 Ferritin elevated at 2518 C-reactive protein elevated 2.35 Procalcitonin 0.15 Bio fire negative except for COVID Diagnostic Findings Imaging studies were independently reviewed. Chest x-ray from yesterday demonstrated bibasilar hazy opacity with prominence of the pulmonary vascular markings throughout. No comparison studies PG Care Time/CCT Total # of Minutes Spent Total Time Spent with Patient: Total time spent is greater than 50% in coordination of care (as documented) at patient's floor/unit and/or counseling patient: Coding Level of Care Code 75844 Initial Inpt Care Lvl 3 Diagnoses COVID-19 U07.1 Respiratory failure J96.01 Chronicity: acute Respiratory failure complication: hypoxia
--- NOTE | 2020-07-22 15:05 | Pharmacy Report ---
Glycemic Control Consultation - Date of Service July 22, 2020 - Scope Scope: Glycemic Pharmacist consulted for glycemic control and to write orders per [facility] inpatient glycemic control protocol. - Objective Weight: 98 kg [place] BSG (last 24hrs): 07/21/20 07/21/20 07/22/20 14:25 21:42 00:46 Glucose 441 H* POC Glucose 488 H* 517 H* 07/22/20 07/22/20 07/22/20 02:41 04:07 05:47 Glucose 426 H* POC Glucose 469 H* 428 H* 07/22/20 07/22/20 07/22/20 05:53 06:48 09:05 Glucose POC Glucose 421 H* 390 H* 359 H* 07/22/20 07/22/20 07/22/20 10:12 10:49 11:56 Glucose POC Glucose 319 H* 314 H* 240 H 07/22/20 07/22/20 13:06 14:12 Glucose POC Glucose 227 H 215 H Laboratory Data (last 24hrs): 07/21/20 07/21/20 07/22/20 14:25 16:07 05:47 Potassium 4.7 4.8 Carbon Dioxide 20 L 23 Anion Gap 12.0 H 7.0 Creatinine 2.47 H 2.16 H D Est Cr Clr Drug Dosing 31.7 33.3 Beta-Hydroxybutyric Acd 2.30 2.50 HbA1c: Hemoglobin A1c 10.2 % (4.5-5.6) H 07/22/20 05:47 - Recent Pertinent Medications Outpatient Anti-diabetic Regimen: * Glyburide 2.5 mg PO daily before breakfast * Pioglitazone 45 mg PO daily * Repaglinide 2 mg PO AC * Semaglutide 7 mg PO qAM * Sitagliptin 50 mg PO qAM * A1c = 10.2 % (07/22/20) - Assessment & Plan Assessment & Plan: ASSESSMENT: * AI is a 75 year old male admitted on 07/21/20 with respiratory failure secondary to COVID 19 pneumonia and KADEN on CKD stage III * Receiving ceftriaxone, azithromycin, and dexamethasone 6 mg IV daily * BSGs significantly elevated at time of admission and insulin infusion was initiated * Additionally, patient received 2.5 unit IV regular insulin bolus + 25 units of Lantus * Hyperglycemia is likely exacerbated by acute stress of COVID 19 pneumonia as well as IV dexamethasone * BSGs have trended down nicely with insulin infusion, currently 215 mg/dL this afternoon * Insulin infusion still running at high rate of 10.2 units/hr. Will plan to continue weight-based stress of 3 Lantus dosing BID and titrate infusion as able * NSS w/ 20 mEq of KCl infusing at 100 mL/hr PLAN FOR INPATIENT GLYCEMIC CONTROL: * Starting IV insulin infusion per moderate stress protocol * Goal Range 120 - 200 mg/dl * Holding outpatient oral diabetes medications * Basal insulin * Lantus 25 units SQ BID * Bolus insulin * NovoLog per scale ACHS or Q6hrs while NPO * Carb ratio per insulin infusion adjustment calculator * Please note that the plan above was derived based on current level of insulin resistance and hospital stress. These recommendations are appropriate for inpatient admission only. Plan of care upon discharge will need to be reassessed to avoid potential outpatient hypo/hyperglycemia. Thank you.
--- NOTE | 2020-07-22 18:13 | Hospitalist Progress Note ---
Date of Service July 22, 2020 Assessment & Plan (1) Respiratory failure: Acute respiratory failure with hypoxia COVID-19 pneumonia CXR:Nonspecific bilateral interstitial pulmonary opacities with a lower lung zone predominance. Coalescent plasma not indicated Discussed with patient regarding initiation Remdesivir--Risks and benefits explained:Patient agrees to proceed Currently given renal function, Remdesivir will not be started We will consider starting Remdesivir if renal function improves No leukocytosis Or lymphopenia on presentation Procalcitonin: 0.15 CRP:2.35 Ferritin:2518 D-dimer:6760 Blood cultures: No growth to date Appreciate pulmonology input Continue dexamethasone as per protocol No indication for antibiotics currently Monitor QTC Gentle IV fluids IV fluids given KADEN in setting of COVID Monitor volume status Albuterol as needed Continue supplemental oxygen with high flow If clinically worsens, transition to BiPAP Encourage self proning Placed on therapeutic Lovenox given elevated d-dimer KADEN on CKD III Hyponatremia in setting of hypoglycemia Prerenal secondary to GI losses Baseline Cr:1.6 Cr: 2.47>>2.16 Hold valsartan, HCTZ Cautiously on IV fluids--crackles on exam Appreciate nephrology input Monitor renal function Avoid nephrotoxic agents as able Hyperglycemia DM II HbA1c 9.3 on May 10, 2020 A1c:10.2 Hold p.o. medications Insulin therapy while hospitalized Glycemic pharmacy consulted Diarrhea Likely due to COVID Diarrhea improving Hyperlipidemia Continue atorvastatin Hypertension Hold valsartan, HCTZ given KADEN Monitor blood pressure H/O basal cell carcinoma H/O squamous cell carcinoma As per records H/O Vitamin D deficiency Vit D levels: normal DVT prophylaxis Lovenox SQ CODE STATUS Full code Admission and Anticipated Discharge Date Admission Date: July 21, 2020 Subjective Patient is seen and examined at bedside Reports generalized weakness and tiredness No dyspnea while on high flow oxygen Denies diarrhea today Also denies chest pain, dizziness, nausea, abdominal pain No significant cough Review of Systems Review of Systems: All systems reviewed & are unremarkable except as noted in HPI & below Physical Exam Physical Exam: Physical Exam: Vitals signs as noted above General Appearance:Moderately built and nourished, no apparent distress Head: normocephalic, Atraumatic Eyes: normal inspection, EOMI Neck: supple, Trachea midline Respiratory/Chest: Decreased breath sounds, +B/L Basal Crackles Cardiovascular: S1, S2, No murmur Abdomen/GI:Soft, Non tender, Bowel sounds present Extremities/Musculoskelatal:normal inspection, no edema Neurologic/Psych:AAOX3, grossly no focal neurological deficits Skin: normal color, warm Results & Data Results & Data ([facility]) Vital Signs (Past 12 Hours) Vital Signs Temp Pulse Resp BP Pulse Ox 07/22/20 17:00 36.5 C 92 H 20 124/68 93 07/22/20 15:53 72 24 95 07/22/20 11:53 36.2 C L 93 H 22 95/58 L 91 07/22/20 11:30 90 20 91 07/22/20 08:40 96 H 24 87 L 07/22/20 08:06 36.3 C L 91 H 20 114/69 80 L Laboratory Results Short CBC 07/22/20 Range/Units 05:47 WBC 5.67 (4.8-10.8) K/uL Hgb 14.9 (14.0-18.0) g/dL Hct 46.0 (42-52) % Plt Count 236 (130-400) K/uL BMP 07/22/20 05:47 Sodium 134 L Potassium 4.8 Chloride 104 Carbon Dioxide 23 BUN 80 H Creatinine 2.16 H D Glucose 426 H* Calcium 9.0 Cardiac Enzymes 07/21/20 Range/Units 20:47 Total Creatine Kinase 153 (39-308) U/L Liver Function 07/22/20 Range/Units 05:47 Total Bilirubin 0.5 (0.2-1) mg/dl AST 55 H (15-37) U/L ALT 62 (12-78) U/L Alkaline Phosphatase 78 (45-117) U/L Albumin 2.7 L (3.4-5.0) gm/dl (1) Respiratory failure Chronicity: acute Respiratory failure complication: hypoxia Qualified Code(s): J96.01 - Acute respiratory failure with hypoxia
[2020-07-22 21:53] LABS: Appearance Urine Clear (Clear); Bacteria Urine Automated Negative (Negative); Bilirubin Urine Negative (Negative); Blood Urine Trace (Negative); Color Urine Yellow; Glucose Urine UA 3+ (Negative); Ketones Urine Negative (Negative); Leukocyte Esterase Urine Negative (Negative); Nitrite Urine Negative (Negative); Protein Urine 2+ (Negative); RBC Urine Automated 0-4 /hpf (0-4); Specific Gravity Urine 1.023 (1.000-1.030); Urobilinogen Urine Negative (Negative)
[2020-07-22 22:18] LABS: Creatinine Urine Random 93.8 mg/dl; Total Protein Urine Random 96.4 mg/dl (0-11.9)
[2020-07-22] MEDS: ATORVASTATIN 20 MG TAB PO SCH (22:58)
[2020-07-23] MEDS ORDERED: ALBUTEROL HFA 8 GM INHALER INH ONE (01:22)
[2020-07-23 02:22] LABS: Basophils # (auto) 0.01 K/uL (0-0.2); Basophils % (auto) 0.1 %; Hematocrit (blood only) 42.4 % (42-52); Hemoglobin 14.7 g/dL (14.0-18.0); Immature Granulocytes # (auto) 0.09 K/uL (0.00-0.02); Immature Granulocytes % (auto) 0.8 %; Lymphocytes # (auto) 2.59 K/uL (1.2-3.4); Lymphocytes % (auto) 24.1 %; Mean Corpuscular Hemoglobin 30.5 pg (25-34); Mean Corpuscular Hgb Conc 34.7 g/dL (32-36); Mean Platelet Volume 10.3 fL (7.4-10.4); Monocytes # (auto) 0.58 K/uL (0.11-0.59); Monocytes % (auto) 5.4 %; Neutrophils # (auto) 7.48 K/uL (1.4-6.5); Neutrophils % (auto) 69.6 %; Platelet Count 233 K/uL (130-400); RDW Coefficient of Variation 14.2 % (11.5-14.5); RDW Standard Deviation 45.8 fL (36.4-46.3); Red Blood Count 4.82 M/uL (4.7-6.1); White Blood Count 10.75 K/uL (4.8-10.8)
[2020-07-23 02:25] LABS: HCO3 ABG 20 mmol/L (19-24); Oxygen Saturation ABG 86.6 % (90-95); PCO2 ABG 32 mmHg (35-46); PO2 ABG 55 mmHg (80-95); pH ABG 7.41 (7.35-7.45)
[2020-07-23 02:26] LABS: Allen Test POS (Pos)
[2020-07-23] MEDS: DEXAMETHASONE SOD PHOSPHATE 6 MG in SYRINGE 0 ML IV SCH (02:45)
[2020-07-23 02:52] LABS: Albumin Globulin Ratio 0.6 (0.9-2); Albumin Level 2.8 gm/dl (3.4-5.0); BUN Creatinine Ratio 41.8 (10-20); Bilirubin,Total 0.4 mg/dl (0.2-1); Calcium 9.2 mg/dl (8.5-10.1); Creatinine Clr Calc Pharmacy 37.7 ml/min; Est GFR (African American) 38.3; Est GFR (Non-African American) 33.1; Globulin 4.7 gm/dl (2.5-4.0); Magnesium 2.7 mg/dl (1.8-2.4); Potassium 4.9 mmol/L (3.5-5.1); Total Protein 7.5 gm/dl (6.4-8.2)
[2020-07-23] MEDS: INSULIN REGULAR 250 UNITS in SODIUM CHLORIDE 0.9% 247.5 ML IV SCH (07:00)
[2020-07-23] MEDS ORDERED: INSULIN GLARGINE SOLOSTAR 100 UNITS/ML 3 ML PEN SC ONE ×2 (08:00→21:15)
--- NOTE | 2020-07-23 08:34 | XRay Report ---
XR chest 1V portable CLINICAL HISTORY: low o2 COMPARISON STUDY: Chest radiograph July 21, 2020. FINDINGS: There is no pneumothorax. No pleural effusion is noted. Right basilar opacity is slightly i mproved. Left basilar opacity persists. There is no evidence for pulmonary edema. There is moderate c ardiomegaly. Left midlung opacity is noted. This could reflect airspace disease or a calcified pleura l plaque. IMPRESSION: 1. Persistent left basilar opacity. Pneumonia is favored. Radiographic follow up to ensure resolution is recommended. 2. Slight improvement in right basilar opacity. 3. Cardiomegaly without evidence for pulmonary edema. ACT 112: Negative or not required by law. Electronically signed by: Kal Hill M.D. 07/23/2020 8:33 AM
[2020-07-23] MEDS: cefTRIAXone SODIUM 2,000 MG in DEXTROSE 5% 50 ML IV SCH (08:37)
[2020-07-23] MEDS: ENOXAPARIN 100 MG/1ML SYR SQ SCH ×2 (08:38→21:05)
[2020-07-23] MEDS: AZITHROMYCIN 250 MG TAB PO SCH (08:38)
[2020-07-23] MEDS: FAMOTIDINE 10 MG TABLET PO SCH ×2 (08:38→21:04)
[2020-07-23] MEDS: INSULIN ASPART 100 UNITS/ML 3 ML PEN SC SCH ×5 (08:39→21:06)
[2020-07-23] MEDS ORDERED: SODIUM CHLORIDE 0.9% 1000ML 1,000 ML IV ONE (08:39)
[2020-07-23] MEDS: INSULIN GLARGINE SOLOSTAR 100 UNITS/ML 3 ML PEN SC SCH (08:39)
[2020-07-23] MEDS ORDERED: REMDESIVIR 200 mg: Day 1 IV ONE (10:00)
[2020-07-23] MEDS: NSS 30mL Flush, Days 1-5 IV SCH (12:09)
--- NOTE | 2020-07-23 12:16 | Electrocardiogram Report ---
Test Reason : Blood Pressure : / mmHG Vent. 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
[2020-07-23] MEDS ORDERED: DC IV INSULIN INFUSION 1 EA DEVI ONE (12:30)
--- NOTE | 2020-07-23 12:50 | Pulmonology Progress Note ---
Date of Service July 23, 2020 Assessment & Plan (1) COVID-19: Impression: 75-year-old male with diabetes admitted with COVID-19 infection and pneumonia with hypoxemic respiratory failure. He is currently receiving dexamethasone. He is not a candidate for Remdesivir due to renal function. Recommendations: 1. Hypoxemic respiratory failure due to novel coronavirus infection. Continue dexamethasone. Given the fact that the patient is 7 days out from his symptoms, I do not think convalescent plasma would offer him a significant benefit at this point time. In addition he is unable to receive Remdesevir due to his current renal dysfunction. Continue supportive care. Will continue high flow oxygen as tolerated. Still recommend a trial of self pronating as that would likely i mprove VQ mismatch and his hypoxemia however the patient declines currently. 2. Dexamethasone likely worsening his diabetes. Recommend aggressive control of hyperglycemia by primary service. 3. Should the patient's clinical condition worsen, could consider transitioning from high flow oxygen to BiPAP. Would like to avoid intubation if possible however the patient is at high risk of clinical deterioration and potential need for mechanical ventilation. Should he progress to that point and have concomitant kidney injury requiring dialysis, his prognosis would be very guarded and potentially discussing with the patient and family advanced directives prior to instituting those measures would be appropriate and encouraged. We will continue to follow with you. (2) Respiratory failure: Chronicity: acute Respiratory failure complication: hypoxia Qualified Code(s): J96.01 - Acute respiratory failure with hypoxia Admission and Anticipated Discharge Date Admission Date: July 21, 2020 Subjective Patient seen through the window on the COVID unit and discussed with nursing staff. The patient apparently has declined using prone positioning. His o xygenation appears stable to slightly improved. He does exhibit some slight increased work of breathing. Review of Systems Review of Systems: Please refer to admission H&P. No additions or deletions Physical Exam Physical Exam: Patient not examined due to coronavirus restrictions and attempts to minimize exposure to staff and consider PPE. Please refer to the hospitalist exam for complete details. I did evaluate the patient through the window and discussed with nursing. He appears to be breathing comfortably on high flow heated oxygen at 100% and 40 L/min Results & Data Results & Data ([facility]) Vital Signs (Past 12 Hours) Vital Signs Temp Pulse Resp BP Pulse Ox Pulse Ox 07/23/20 11:24 88 20 94 07/23/20 08:00 37.0 C 92 H 24 148/89 H 89 L 07/23/20 07:48 95 H 18 84 L 07/23/20 05:00 95 07/23/20 03:14 36.9 C 87 20 134/79 93 07/23/20 03:09 85 20 97 Laboratory Results 07/23/20 02:09 07/23/20 02:09 Diagnostic Findings Chest x-ray today was independently reviewed. Basilar hazy opacities again present, stable to slightly improved from 07/21/2020 PG Care Time/CCT Total # of Minutes Spent Total Time Spent with Patient: Total time spent is greater than 50% in coordin ation of care (as documented) at patient's floor/unit and/or counseling patient: Coding Level of Care Code 34747 Subseq Hosp Care Lvl 2 Diagnoses COVID-19 U07.1 Respiratory failure J96.01 Chronicity: acute Respiratory failure complication: hypoxia
--- NOTE | 2020-07-23 13:42 | Pharmacy Report ---
Glycemic Control Progress Note - Date of Service July 23, 2020 - Scope Glycemic Pharmacist consulted for glycemic control to write orders per [facility] inpatient glycemic control protocol. - Objective Accuchecks BSG(last 24 hours):: 07/22/20 07/22/20 07/22/20 14:12 15:22 15:58 Glucose POC Glucose 215 H 166 H 125 H 07/22/20 07/22/20 07/22/20 16:58 19:15 20:41 Glucose POC Glucose 98 175 H 167 H 07/22/20 07/22/20 07/22/20 21:46 22:51 23:45 Glucose POC Glucose 192 H 188 H 170 H 07/23/20 07/23/20 07/23/20 01:47 02:09 03:39 Glucose 155 H POC Glucose 150 H 121 H 07/23/20 07/23/20 07/23/20 04:46 06:53 07:47 Glucose POC Glucose 124 H 105 H 107 H 07/23/20 07/23/20 07/23/20 08:50 08:52 11:32 Glucose POC Glucose 49 L* 78 125 H HbA1c:: Hemoglobin A1c 10.2 % (4.5-5.6) H 07/22/20 05:47 - Recent Pertinent Medications The patient is currently receiving: * Basal insulin: Lantus 25 units every 12 hours * Correctional Insulin: Novolog Correction per scale ACHS Goal Range: Low 120 mg/dL - High 200 mg/dL Correction Factor: -- mg/dL/unit * Prandial insulin: Per carb ratio of 1 unit per 8 grams CHO consumed * IV insulin: receiving IV insulin infusion -- stabilized overnight to rate of 3 units/hr - Outpatient Anti-Diabetic Meds Amaryl 45 mg po qAM Prandin 2 gm PO AC Glyburide 2.5 mg daily Januvia 50 mg daily - Assessment & Plan ASSESSMENT: * See progress note from 07/22/20 for more background info, in short: * Pt receiving SQ basal bolus insulin regimen for hyperglycemia secondary to baseline DM (oral regimen currently on hold) and COVID receiving dexamethasone 6 mg IV daily. * Patient is currently receiving an average of 60 units of insulin per day (+ IV insulin) * 50 units of basal insulin * 10 units of prandial/correctional insulin * BSGs ranging 167 - 469 mg/dl over the past 24hrs * Changes needed to insulin regimen: * AM Fasting BSG = 105 mg/dl. This is in goal range for patient based on inpatient targets and co-morbidities. Insulin infusion stabilized overnight to around 3 units/hr indicating patient still has basal needs. Will give additional 20 units this morning (estimate that patient could require about 48-72 more units of insulin per day but hesitate to give this as Lantus 25 units BID should be at steady state this morning. Insulin infusion turned off around 1000. * Post-prandial BSGs will be started at weight-based stress of 3 Novolog. Overnight checks to be added. * Total daily dose = ? units. TBD based upon steroid needs. PLAN FOR INPATIENT GLYCEMIC CONTROL: * Continuing Lantus 25 units SQ BID * STARTING correction factor of 15 mg/dl/unit * STARTING carb ratio of 1 unit per 5 grams CHO consumed * Continuing goal range of Low 110 mg/dL - High 140 mg/dL * Please note that the plan above was derived based on current level of insulin resistance and hospital stress. These recommendations are appropriate for inpatient admission only. Plan of care upon discharge will need to be reassessed to avoid potential outpatient hypo/hyperglycemia. Thank you.
--- NOTE | 2020-07-23 16:20 | Hospitalist Progress Note ---
Date of Service July 23, 2020 Assessment & Plan (1) Respiratory failure: Acute respiratory failure with hypoxia COVID-19 pneumonia CXR:Nonspecific bilateral interstitial pulmonary opacities with a lower lung zone predominance. Coalescent plasma not indicated Discussed with patient regarding initiation Remdesivir--Risks and benefits explained:Patient agrees to proceed Initially did not start him on Rocephin given renal insufficiency No leukocytosis Or lymphopenia on presentation Procalcitonin: 0.15 CRP:2.35 Ferritin:2518 D-dimer:6760 Blood cultures: No growth to date Urine Culture: No growth Appreciate pulmonology input Continue dexamethasone as per protocol No indication for antibiotics currently Monitor QTC Received Gentle iV fluids Monitor volume status Albuterol as needed Continue supplemental oxygen with high flow If clinically worsens, transition to BiPAP Encouraged self proning Continue Lovenox CXR today showed slight improvement in right basilar opacity. Remdesivir started as renal function better-- Will discontinue if renal function worsens KADEN on CKD III Hyponatremia in setting of hypoglycemia Prerenal secondary to GI losses Baseline Cr:1.6 Cr: 2.47>>2.16>>1.91 Continue to hold valsartan, HCTZ Received IV fluids Appreciate nephrology input Monitor renal function Avoid nephrotoxic agents as able Hyperglycemia DM II HbA1c 9.3 on May 10, 2020 A1c:10.2 Hold p.o. medications Insulin therapy while hospitalized Glycemic pharmacy consulted Diarrhea Likely due to COVID No diarrhea today Hyperlipidemia Continue atorvastatin Hypertension Hold valsartan, HCTZ given KADEN Monitor blood pressure H/O basal cell carcinoma H/O squamous cell carcinoma As per records H/O Vitamin D deficiency Vit D levels: normal DVT prophylaxis Lovenox SQ CODE STATUS Full code Admission and Anticipated Discharge Date Admission Date: July 21, 2020 Subjective Patient is seen and examined at bedside Complaint to have sore throat Cough slightly better today Denies any significant dyspnea while on high flow oxygen Denies odynophagia, chest pain, dizziness, nausea, abdominal pain, diarrhea Encouraged to Self Prone Review of Systems Review of Systems: All systems reviewed & are unremarkable except as noted in HPI & below Physical Exam Physical Exam: Physical Exam: Vitals signs as noted above General Appearance:Moderately built and nourished, no apparent distress Head: normocephalic, Atraumatic Eyes: normal inspection, EOMI Neck: supple, Trachea midline Respiratory/Chest: Decreased breath sounds, +B/L Basal Crackles Cardiovascular: S1, S2, No murmur Abdomen/GI:Soft, Non tender, Bowel sounds present Extremities/Musculoskelatal:normal inspection, no edema Neurologic/Psych:AAOX3, grossly no focal neurological deficits Skin: normal color, warm Results & Data Results & Data ([facility]) Vital Signs (Past 12 Hours) Vital Signs Temp Pulse Resp BP Pulse Ox Pulse Ox 07/23/20 15:42 93 H 22 95 07/23/20 11:24 88 20 94 07/23/20 08:00 37.0 C 92 H 24 148/89 H 89 L 07/23/20 07:48 95 H 18 84 L 07/23/20 05:00 95 Laboratory Results Short CBC 07/23/20 Range/Units 02:09 WBC 10.75 (4.8-10.8) K/uL Hgb 14.7 (14.0-18.0) g/dL Hct 42.4 (42-52) % Plt Count 233 (130-400) K/uL BMP 07/23/20 02:09 Sodium 141 D Potassium 4.9 Chloride 112 H Carbon Dioxide 24 BUN 80 H Creatinine 1.91 H Glucose 155 H Calcium 9.2 Liver Function 07/23/20 Range/Units 02:09 Total Bilirubin 0.4 (0.2-1) mg/dl AST 56 H (15-37) U/L ALT 53 (12-78) U/L Alkaline Phosphatase 74 (45-117) U/L Albumin 2.8 L (3.4-5.0) gm/dl Urine 07/22/20 Range/Units 21:30 Urine Color Yellow Urine Appearance Clear (Clear) Urine pH 5.0 (4.5-7.5) Ur Specific [place] 1.023 (1.000-1.030) Urine Protein 2+ H (Negative) Urine Glucose (UA) 3+ H (Negative) (1) Respiratory failure Chronicity: acute Respiratory failure complication: hypoxia Qualified Code(s): J96.01 - Acute respiratory failure with hypoxia
[2020-07-23] MEDS: ATORVASTATIN 20 MG TAB PO SCH (21:04)
[2020-07-24] MEDS: INSULIN ASPART 100 UNITS/ML 3 ML PEN SC SCH ×6 (01:01→20:58)
[2020-07-24 07:26] LABS: Albumin Level 2.5 gm/dl (3.4-5.0); BUN Creatinine Ratio 37.8 (10-20); Calcium 9.2 mg/dl (8.5-10.1); Est GFR (African American) 50.1; Est GFR (Non-African American) 43.2; Potassium 4.8 mmol/L (3.5-5.1)
[2020-07-24 07:29] LABS: Albumin Globulin Ratio 0.5 (0.9-2); Bilirubin,Total 0.4 mg/dl (0.2-1); Globulin 4.7 gm/dl (2.5-4.0); Total Protein 7.2 gm/dl (6.4-8.2)
[2020-07-24] MEDS: FAMOTIDINE 10 MG TABLET PO SCH ×2 (08:42→19:54)
[2020-07-24] MEDS: AZITHROMYCIN 250 MG TAB PO SCH (08:42)
[2020-07-24] MEDS: cefTRIAXone SODIUM 2,000 MG in DEXTROSE 5% 50 ML IV SCH (08:42)
[2020-07-24] MEDS: DEXAMETHASONE SOD PHOSPHATE 6 MG in SYRINGE 0 ML IV SCH (08:43)
[2020-07-24] MEDS: ENOXAPARIN 100 MG/1ML SYR SQ SCH ×2 (08:43→19:55)
[2020-07-24] MEDS ORDERED: INSULIN GLARGINE SOLOSTAR 100 UNITS/ML 3 ML PEN SC SCH ×2 (09:00)
[2020-07-24] MEDS: REMDESIVIR 100mg: Days 2-5 IV SCH (09:34)
--- NOTE | 2020-07-24 11:00 | Pulmonology Progress Note ---
Date of Service July 24, 2020 Assessment & Plan (1) COVID-19: Impression: 75-year-old male with diabetes admitted with COVID-19 infection and pneumonia with hypoxemic respiratory failure. He is currently receiving dexamethasone. He is not a candidate for Remdesivir due to renal function. Recommendations: 1. Hypoxemic respiratory failure due to novel coronavirus infection. Continue dexamethasone. Given the fact that the patient is 7 days out from his symptoms, I do not think convalescent plasma would offer him a significant benefit at this point time. In addition he is unable to receive Remdesevir due to his current renal dysfunction. Continue supportive care. Will continue high flow oxygen as tolerated. Still recommend a trial of self pronating as that would likely improve VQ mismatch and his hypoxemia however the patient declines currently. Little else to add at this point in time. If he should deteriorate despite high flow nasal cannula, could consider BiPAP. 2. Dexamethasone likely worsening his diabetes. Recommend aggressive control of hyperglycemia by primary service. 3. Little else to add at this point in time. We are available to assist as needed and please call us if we can be of additional pulmonary or critical care assistance. If the patient is reluctant to comply with our recommendations, would strongly recommend palliative care discussion to define code status (2) Respiratory failure: Chronicity: acute Respiratory failure complication: hypoxia Qualified Code(s): J96.01 - Acute respiratory failure with hypoxia Admission and Anticipated Discharge Date Admission Date: July 21, 2020 Subjective Chart review conducted. Patient's oxygenation appears stable. Per nursing, he has been reluctant to pursue self pronating. Review of Systems Review of Systems: Please refer to admission H&P. No additions or deletions Physical Exam Physical Exam: Patient not examined due to coronavirus restrictions and attempts to minimize exposure to staff and consider PPE. Please refer to the hospitalist exam for complete details. I did evaluate the patient through the window and discussed with nursing. He appears to be breathing comfortably on high flow heated oxygen at 100% and 40 L/min Results & Data Results & Data ([facility]) Vital Signs (Past 12 Hours) Vital Signs Temp Pulse Pulse Resp BP BP Pulse Ox 07/24/20 07:40 118 H 07/24/20 07:20 37.4 C 114 H 20 137/81 93 07/24/20 04:00 37.6 C H 117 H 20 105/69 94 07/24/20 03:41 111 H 20 92 07/24/20 00:43 36.8 C 116 H 22 122/81 90 07/24/20 00:20 113 H 22 93 Pulse Ox 07/24/20 07:40 87 L 07/24/20 07:20 07/24/20 04:00 07/24/20 03:41 07/24/20 00:43 07/24/20 00:20 PG Care Time/CCT Total # of Minutes Spent Total Time Spent with Patient: Total time spent is greater than 50% in coordination of care (as documented) at patient's floor/unit and/or counseling patient: Coding Level of Care Code 67708 Subseq Hosp Care Lvl 1 Diagnoses COVID-19 U07.1 Respiratory failure J96.01 Chronicity: acute Respiratory failure complication: hypoxia
[2020-07-24] MEDS: NSS 30mL Flush, Days 1-5 IV SCH (11:19)
--- NOTE | 2020-07-24 11:21 | Pharmacy Report ---
Glycemic Control Progress Note - Date of Service July 24, 2020 - Scope Glycemic Pharmacist consulted for glycemic control to write orders per [facility] inpatient glycemic control protocol. - Objective Accuchecks BSG(last 24 hours):: 07/22/20 07/23/20 07/23/20 08:04 11:32 15:54 Glucose POC Glucose 396 H* 125 H 128 H 07/23/20 07/24/20 07/24/20 20:12 00:46 04:13 Glucose POC Glucose 112 H 82 101 H 07/24/20 07/24/20 06:30 07:18 Glucose 112 H POC Glucose 106 H HbA1c:: Hemoglobin A1c 10.2 % (4.5-5.6) H 07/22/20 05:47 - Recent Pertinent Medications The patient is currently receiving: * Basal insulin: Lantus 45 units SQ x 1 in AM plus Lantus 5 units in the PM * Correctional Insulin: Novolog Correction per scale ACHS Goal Range: Low 110 mg/dL - High 140 mg/dL Correction Factor: 15 mg/dL/unit * Prandial insulin: Per carb ratio of 1 unit per 5 grams CHO consumed - Outpatient Anti-Diabetic Meds Actos 45 mg daily Prandin 2 mg AC glyburide 2.5 mg daily Januvia 50 mg daily - Assessment & Plan ASSESSMENT: * See progress note from 07/22/2020 for more background info, in short: * Pt receiving SQ basal bolus insulin regimen for hyperglycemia secondary to baseline DM (outpatient regimen on hold),stress/infection (COVID pneumonia on Rocephin, Azithromycin, and Remdesivir), and dexamethasone 6 mg IV daily. * Patient is currently receiving an average of 73 units of insulin per day * 50 units of basal insulin * 23 units of prandial/correctional insulin * BSGs ranging 82 - 128 mg/dl over the past 24hrs * Changes needed to insulin regimen: * AM Fasting BSG = 106 mg/dl. This is in goal range for patient based on inpatient targets and co-morbidities. The patient received 50 units of basal insulin yesterday. Will reduce by 20% as patient was basal heavy yesterday - give 40 units daily. * Post-prandial BSGs were stable yesterday. Continue Novolog weight-based stress of 3. May require loosening but patient is still receiving dexamethasone. * Total daily dose = ? units. TBD once patient has full day off of IV insulin. PLAN FOR INPATIENT GLYCEMIC CONTROL: * Decreasing Lantus to 40 units SQ daily * Continuing correction factor of 15 mg/dl/unit * Continuing carb ratio of 1 unit per 5 grams CHO consumed * Continuing goal range of Low 110 mg/dL - High 140 mg/dL * Please note that the plan above was derived based on current level of insulin resistance and hospital stress. These recommendations are appropriate for inpatient admission only. Plan of care upon discharge will need to be reassessed to avoid potential outpatient hypo/hyperglycemia. Thank you.
--- NOTE | 2020-07-24 14:05 | Hospitalist Progress Note ---
Date of Service July 24, 2020 Assessment & Plan (1) Respiratory failure: Acute respiratory failure with hypoxia COVID-19 pneumonia CXR:Nonspecific bilateral interstitial pulmonary opacities with a lower lung zone predominance. Coalescent plasma not indicated Discussed with patient regarding initiation Remdesivir--Risks and benefits explained:Patient agrees to proceed Initially did not start him on Rocephin given renal insufficiency No leukocytosis Or lymphopenia on presentation Procalcitonin: 0.15 CRP:2.35 Ferritin:2518 D-dimer:6760 Blood cultures: No growth to date Urine Culture: No growth Appreciate pulmonology input Continue dexamethasone, Remdesivir as per protocol No indication for antibiotics currently Monitor QTC Monitor volume status Albuterol as needed On high flow oxygen Not compliant with self proning Continue Lovenox for DVT Px Renal function improved Resume HCTZ to keep him on dry side KADEN on CKD III Hyponatremia in setting of hypoglycemia Prerenal secondary to GI losses Baseline Cr:1.6 Cr: 2.47>2.16>1.91>1.53 Held valsartan Resume HCTZ tmw Received IV fluids Appreciate nephrology input Monitor renal function Hyperglycemia DM II HbA1c 9.3 on May 10, 2020 A1c:10.2 Hold p.o. medications Insulin therapy while hospitalized Glycemic pharmacy consulted Diarrhea Likely due to COVID Stool for C diff pending Hyperlipidemia Continue atorvastatin Hypertension Hold valsartan Monitor blood pressure HCTZ resume tmw H/O basal cell carcinoma H/O squamous cell carcinoma As per records H/O Vitamin D deficiency Vit D levels: normal DVT prophylaxis Lovenox SQ CODE STATUS Full code Need to readdress code status if he deteriorates Admission and Anticipated Discharge Date Admission Date: July 21, 2020 Subjective Patient is seen and examined at bedside Sore throat slightly better Reports dry mouth Noncompliant with Proning as recommended Dyspnea slightly better per patient No significant cough And loose BM today per patient Denies chest pain, nausea, vomiting, abdominal pain, dizziness Sinus tachycardia on monitor On high flow oxygen Review of Systems Review of Systems: All systems reviewed & are unremarkable except as noted in HPI & below Physical Exam Physical Exam: Physical Exam: Vitals signs as noted above General Appearance:No apparent distress, Ill appearing Head: normocephalic, Atraumatic Eyes: normal inspection, EOMI Neck: supple, Trachea midline Respiratory/Chest: Decreased breath sounds, +B/L Basal Crackles Cardiovascular: S1, S2, No murmur, +Tachycardia Abdomen/GI:Soft, Non tender, Bowel sounds present Extremities/Musculoskelatal:normal inspection, no edema Neurologic/Psych:AAOX3, grossly no focal neurological deficits Skin: normal color, warm Results & Data Results & Data ([facility]) Vital Signs (Past 12 Hours) Vital Signs Temp Pulse Pulse Resp BP BP Pulse Ox 07/24/20 11:36 36.9 C 112 H 17 127/83 93 07/24/20 11:35 112 H 18 93 07/24/20 07:40 118 H 07/24/20 07:20 37.4 C 114 H 20 137/81 93 07/24/20 04:00 37.6 C H 117 H 20 105/69 94 07/24/20 03:41 111 H 20 92 Pulse Ox 07/24/20 11:36 07/24/20 11:35 07/24/20 07:40 87 L 07/24/20 07:20 07/24/20 04:00 07/24/20 03:41 Laboratory Results [facility] 07/24/20 06:30 Sodium 145 Potassium 4.8 Chloride 118 H Carbon Dioxide 24 BUN 58 H Creatinine 1.53 H D Glucose 112 H Calcium 9.2 Liver Function 07/24/20 Range/Units 06:30 Total Bilirubin 0.4 (0.2-1) mg/dl AST 47 H (15-37) U/L ALT 46 (12-78) U/L Alkaline Phosphatase 85 (45-117) U/L Albumin 2.5 L (3.4-5.0) gm/dl (1) Respiratory failure Chronicity: acute Respiratory failure complication: hypoxia Qualified Code(s): J96.01 - Acute respiratory failure with hypoxia
[2020-07-24] MEDS: ATORVASTATIN 20 MG TAB PO SCH (19:54)
[2020-07-25 06:42] LABS: Basophils # (auto) 0.01 K/uL (0-0.2); Basophils % (auto) 0.1 %; Hematocrit (blood only) 43.4 % (42-52); Hemoglobin 14.4 g/dL (14.0-18.0); Immature Granulocytes # (auto) 0.06 K/uL (0.00-0.02); Immature Granulocytes % (auto) 0.5 %; Lymphocytes # (auto) 3.78 K/uL (1.2-3.4); Lymphocytes % (auto) 32.4 %; Mean Corpuscular Hemoglobin 29.5 pg (25-34); Mean Corpuscular Hgb Conc 33.2 g/dL (32-36); Mean Corpuscular Volume 88.9 fL (80-100); Mean Platelet Volume 10.6 fL (7.4-10.4); Monocytes # (auto) 0.42 K/uL (0.11-0.59); Monocytes % (auto) 3.6 %; Neutrophils # (auto) 7.41 K/uL (1.4-6.5); Neutrophils % (auto) 63.4 %; Platelet Count 233 K/uL (130-400); RDW Coefficient of Variation 14.4 % (11.5-14.5); RDW Standard Deviation 46.7 fL (36.4-46.3); Red Blood Count 4.88 M/uL (4.7-6.1); White Blood Count 11.68 K/uL (4.8-10.8)
[2020-07-25 07:02] LABS: D Dimer 2780 ug/L FEU (0-500)
[2020-07-25 07:16] LABS: Albumin Level 2.4 gm/dl (3.4-5.0); BUN Creatinine Ratio 32.5 (10-20); Calcium 8.9 mg/dl (8.5-10.1); Creatinine Clr Calc Pharmacy 49.3 ml/min; Est GFR (Non-African American) 45.7; Magnesium 2.6 mg/dl (1.8-2.4); Potassium 4.6 mmol/L (3.5-5.1)
[2020-07-25 07:21] LABS: Albumin Globulin Ratio 0.5 (0.9-2); Bilirubin,Total 0.5 mg/dl (0.2-1); C Reactive Protein 2.57 mg/dl (0-0.29); Ferritin 1802.9 ng/ml (8-388); Globulin 4.5 gm/dl (2.5-4.0); Total Protein 6.9 gm/dl (6.4-8.2)
[2020-07-25] MEDS ORDERED: hydroCHLOROthiazide 25 MG TAB PO SCH (08:00)
[2020-07-25] MEDS: AZITHROMYCIN 250 MG TAB PO SCH (08:04)
[2020-07-25] MEDS: FAMOTIDINE 10 MG TABLET PO SCH ×2 (08:04→20:01)
[2020-07-25] MEDS: ENOXAPARIN 100 MG/1ML SYR SQ SCH ×2 (08:05→20:02)
[2020-07-25] MEDS: cefTRIAXone SODIUM 2,000 MG in DEXTROSE 5% 50 ML IV SCH (08:05)
[2020-07-25] MEDS: DEXAMETHASONE SOD PHOSPHATE 6 MG in SYRINGE 0 ML IV SCH (08:07)
[2020-07-25] MEDS: FUROSEMIDE 20 MG in SYRINGE 0 ML IV SCH ×3 (08:13→17:25)
[2020-07-25] MEDS: INSULIN ASPART 100 UNITS/ML 3 ML PEN SC SCH ×4 (08:19→21:04)
[2020-07-25 08:33] LABS: Base Excess VBG -0.5 mEq/L; HCO3 VBG 23 mmol/L; Oxygen Saturation VBG < 60.0 %; PCO2 VBG 35 mmHg (38-50); PO2 VBG 19 mmHg; pH VBG 7.43 (7.36-7.41)
[2020-07-25] MEDS ORDERED: INSULIN GLARGINE SOLOSTAR 100 UNITS/ML 3 ML PEN SC SCH ×2 (09:00)
--- NOTE | 2020-07-25 09:01 | XRay Report ---
XR chest 1V portable CLINICAL HISTORY: COVID COMPARISON STUDY: Chest radiograph July 23, 2020. FINDINGS: Left basilar opacity persists. Interstitial thickening within both lungs has increased. Car diomegaly is unchanged. There is no pneumothorax. No pleural effusion is identified. IMPRESSION: Increase in bibasilar opacities and interstitial thickening. The findings favor a progre ssive infectious process. ACT 112: Negative or not required by law. Electronically signed by: Kal Hill M.D. 07/25/2020 9:00 AM
[2020-07-25] MEDS: REMDESIVIR 100mg: Days 2-5 IV SCH (09:37)
[2020-07-25] MEDS: ASCORBIC ACID 500 MG TAB PO SCH (09:40)
[2020-07-25] MEDS: ZINC SULFATE 220 MG CAPSULE PO SCH (09:40)
[2020-07-25] MEDS: CHLORASEPTIC 1.4% SOLN 180 ML BTL MT PRN (09:41)
[2020-07-25] MEDS: NSS 30mL Flush, Days 1-5 IV SCH (10:40)
--- NOTE | 2020-07-25 11:10 | Pharmacy Report ---
Pharmacy Glycemic Short Note 2 - Date of Service July 25, 2020 - Glycemic Short BSG Results (Last 24 hours): 07/24/20 07/24/20 07/24/20 11:34 16:47 20:50 Glucose POC Glucose 149 H 226 H 241 H 07/25/20 07/25/20 06:20 07:30 Glucose 178 H POC Glucose 170 H OUTPATIENT ANTIDIABETIC REGIMEN: * Glyburide 2.5mg daily * Repaglinide 2mg prior to meals * Pioglitazone 45mg daily * Sitagliptin 50mg Q AM * A1c = 10.2% 07/22/20 ASSESSMENT: * Type 2 diabetic admitted with COVID19 viral pneumonia * Continues to receive Dexamethasone 6mg PO daily in the AM * Fasting BSG 170 this AM w/ 40 units basal insulin on board, will titrate up the basal dose * Post-prandial BSGs did climb the 2nd half of the day yesterday, however post- prandial BSGs trended downward the prior day. On both days dexamethasone IV had been given and patient was eating. Will continue yesterday's "high" stress Novolog doses and follow pattern today prior to making changes. PLAN FOR INPATIENT GLYCEMIC CONTROL: * Hold outpatient oral diabetes medications * Basal insulin * Lantus Q AM per scale: 35 units if BSG less than 110; 45 units if BSG greater than 110 * Bolus insulin * NovoLog per scale ACHS or Q6hrs while NPO * Goal Range: Low 110 mg/dL - High 140 mg/dL * Correction Factor: 15 mg/dL/unit * Nutritional / Prandial insulin per carb ratio of 1 unit per 5 grams CHO consumed PLAN FOR DISCHARGE: * to be determined
--- NOTE | 2020-07-25 13:35 | Communication Note ---
Date of Service: July 25, 2020 case reviewed with hospitalist and with nursing. more desats overnight and on high flow 02NC bordering on need for bipap stopped hctz; started lasix 20 mg IV tid (6A, noon, 6 p, first dose this am) -daily bmp -avoid acei/arb -monitor sats/vol status > could uptitrate lasix if bp an issue -consider low dose lopressor and/or calcium channel sharona if further bp control desired
--- NOTE | 2020-07-25 15:43 | Electrocardiogram Report ---
Test Reason : Blood Pressure : / mmHG Vent. Rate : 110 BPM Atrial Rate : 110 BPM P-R Int : 156 ms QRS Dur : 084 ms QT Int : 332 ms P-R-T Axes : 029 -68 067 degrees QTc Int : 449 ms Sinus tachycardia Left axis deviation Poor R wave progression, consider anterior MT vs. lead placement vs. LVH Inferior infarct (cited on or before 21-JUL-2020) Abnormal ECG When compared with ECG of 23-JUL-2020 09:42, Premature ventricular complexes are no longer Present Confirmed by Zachary Velez ([id number]) on 07/25/2020 3:42:50 PM Referred By: REFERRED SELF Confirmed By:Zachary Velez
--- NOTE | 2020-07-25 16:48 | Hospitalist Progress Note ---
Date of Service July 25, 2020 Assessment & Plan (1) Respiratory failure: Acute respiratory failure with hypoxia COVID-19 pneumonia CXR:Nonspecific bilateral interstitial pulmonary opacities with a lower lung zone predominance. Coalescent plasma not indicated Discussed with patient regarding initiation Remdesivir--Risks and benefits explained:Patient agrees to proceed Initially did not start him on Rocephin given renal insufficiency No leukocytosis Or lymphopenia on presentation Procalcitonin: 0.15 CRP:2.35>2.57 Ferritin:2518>>1802 D-dimer:6760>>2780 Blood cultures: No growth to date Urine Culture: No growth Appreciate pulmonology input Completed azithromycin course Continue Rocephin Day 4/7 Continue dexamethasone, Remdesivir as per protocol Monitor QTC Monitor volume status IV lasix to keep him on dry side Albuterol as needed Continue high flow oxygen Continue Lovenox for DVT Px Need to readdress code status--if clinically deteriorates Updated Patient's son over phone CXR today showed increased bilateral opacities and interstitial thickening KADEN on CKD III Hyponatremia in setting of hypoglycemia Prerenal secondary to GI losses Baseline Cr:1.6 Cr: 2.4>2.1>1.9>1.5>1.4 Held valsartan Received IV fluids Appreciate nephrology input Monitor renal function Hyperglycemia DM II HbA1c 9.3 on May 10, 2020 A1c:10.2 Hold p.o. medications Insulin therapy while hospitalized Glycemic pharmacy consulted Diarrhea Likely due to COVID Check stool for C diff pending if re-occurs Hyperlipidemia Continue atorvastatin Hypertension Hold valsartan Monitor blood pressure Hold HCTZ while on IV lasix H/O basal cell carcinoma H/O squamous cell carcinoma As per records H/O Vitamin D deficiency Vit D levels: normal DVT prophylaxis Lovenox SQ CODE STATUS Full code Need to readdress code status if he deteriorates Admission and Anticipated Discharge Date Admission Date: July 21, 2020 Subjective Patient is seen and examined at bedside Subjectively denies dyspnea Persistent dry cough Sore throat slightly improved States trying to prone as able Discussed with nephrology and pulmonology today Also discussed with patient's son in detail over the phone On high flow oxygen Chest x-ray today suggestive of increasing by basilar opacities and interstitial thickening. Denies chest pain, nausea, vomiting, abdominal pain, dizziness Review of Systems Review of Systems: All systems reviewed & are unremarkable except as noted in HPI & below Physical Exam Physical Exam: Physical Exam: Vitals signs as noted above General Appearance:No apparent distress, Ill appearing Head: normocephalic, Atraumatic Eyes: normal inspection, EOMI Neck: supple, Trachea midline Respiratory/Chest: Decreased breath sounds, +B/L Basal Crackles Cardiovascular: S1, S2, No murmur, +Tachycardia Abdomen/GI:Soft, Non tender, Bowel sounds present Extremities/Musculoskelatal:normal inspection, no edema Neurologic/Psych:AAOX3, grossly no focal neurological deficits Skin: normal color, warm Results & Data Results & Data ([facility]) Vital Signs (Past 12 Hours) Vital Signs Temp Pulse Pulse Resp BP Pulse Ox Pulse Ox 07/25/20 15:17 36.7 C 105 H 24 122/79 84 L 07/25/20 15:10 104 H 109 H 20 89 L 07/25/20 11:20 102 H 20 89 L 07/25/20 11:14 36.8 C 114 H 19 146/87 H 84 L 07/25/20 08:30 108 H 20 89 L 07/25/20 08:00 99 H 86 L 07/25/20 07:27 36.5 C 119 H 19 153/99 H 86 L Laboratory Results Short CBC 07/25/20 Range/Units 06:20 WBC 11.68 H (4.8-10.8) K/uL Hgb 14.4 (14.0-18.0) g/dL Hct 43.4 (42-52) % Plt Count 233 (130-400) K/uL BMP 07/25/20 06:20 Sodium 144 Potassium 4.6 Chloride 115 H Carbon Dioxide 24 BUN 48 H Creatinine 1.46 H Glucose 178 H Calcium 8.9 Liver Function 07/25/20 Range/Units 06:20 Total Bilirubin 0.5 (0.2-1) mg/dl AST 37 (15-37) U/L ALT 38 (12-78) U/L Alkaline Phosphatase 82 (45-117) U/L Albumin 2.4 L (3.4-5.0) gm/dl (1) Respiratory failure Chronicity: acute Respiratory failure complication: hypoxia Qualified Code(s): J96.01 - Acute respiratory failure with hypoxia
[2020-07-25] MEDS ORDERED: methylPREDNISolone 20 MG in SYRINGE 0 ML IV ONE (20:00)
[2020-07-25] MEDS: ATORVASTATIN 20 MG TAB PO SCH (20:01)
--- NOTE | 2020-07-25 20:30 | XRay Report ---
SINGLE VIEW CHEST CLINICAL HISTORY: Hypoxia. Covid. FINDINGS: 2 AP, portable, upright chest radiographs are compared to study performed earlier the same day 07/25/2020. The examination is degraded by portable technique and patient rotation. The heart is enlarged noting atherosclerotic calcification of the thoracic aorta. The pulmonary vasculature is non congested. Diffuse coarsening of interstitium is again noted, as is left greater than right bibasilar airspace consolidation. A small Left pleural effusion is suspected. No pneumothorax is seen. The ske letal structures are osteopenic. The bony thorax is grossly intact. IMPRESSION: 1. Interstitial thickening and left greater than right bibasilar consolidation is similar to previous . This favors an infectious/inflammatory pneumonitis. 2. Suspect a small left pleural effusion. 3. Cardiac enlargement without radiographic evidence of congestive failure. ACT 112: Negative or not required by law. Electronically signed by: Robin Crisostomo M.D. 07/25/2020 8:29 PM
[2020-07-25] MEDS: LEVALBUTEROL TARTRATE 15 GM HFA.AER.AD INH SCH (20:47)
[2020-07-26] MEDS: LEVALBUTEROL TARTRATE 15 GM HFA.AER.AD INH SCH ×4 (00:21→19:11)
[2020-07-26] MEDS: FUROSEMIDE 20 MG in SYRINGE 0 ML IV SCH ×3 (05:23→17:22)
[2020-07-26] MEDS: FAMOTIDINE 10 MG TABLET PO SCH ×2 (07:53→20:42)
[2020-07-26] MEDS: DEXAMETHASONE SOD PHOSPHATE 6 MG in SYRINGE 0 ML IV SCH (07:54)
[2020-07-26] MEDS: ENOXAPARIN 100 MG/1ML SYR SQ SCH ×2 (07:54→20:42)
[2020-07-26] MEDS: cefTRIAXone SODIUM 2,000 MG in DEXTROSE 5% 50 ML IV SCH (07:54)
[2020-07-26] MEDS: ZINC SULFATE 220 MG CAPSULE PO SCH (07:55)
[2020-07-26] MEDS: ASCORBIC ACID 500 MG TAB PO SCH (07:55)
[2020-07-26] MEDS: INSULIN ASPART 100 UNITS/ML 3 ML PEN SC SCH ×4 (08:10→20:43)
[2020-07-26] MEDS: INSULIN GLARGINE SOLOSTAR 100 UNITS/ML 3 ML PEN SC SCH (08:10)
--- NOTE | 2020-07-26 08:15 | Nephrology Progress Note ---
Date of Service July 26, 2020 Assessment & Plan Admission and Anticipated Discharge Date Admission Date: July 21, 2020 Results & Data ([facility]) Vital Signs (Past 12 Hours) Vital Signs Temp Pulse Pulse Resp BP BP Pulse Ox 07/26/20 07:37 103 H 103 H 17 92 07/26/20 07:30 36.6 C 103 H 24 104/76 93 07/26/20 03:14 86 18 94 07/26/20 02:55 36.6 C 93 H 18 112/70 95 07/26/20 01:51 102 H 07/26/20 00:25 95 H 23 97 07/26/20 00:24 95 H 23 97 07/26/20 00:03 36.7 C 96 H 18 108/75 96 07/25/20 20:58 111 H 17 88 L 07/25/20 20:49 103 H 22 83 L
[2020-07-26 08:53] LABS: Albumin Level 2.3 gm/dl (3.4-5.0); BUN Creatinine Ratio 35.4 (10-20); Calcium 9.5 mg/dl (8.5-10.1); Creatinine Clr Calc Pharmacy 44.4 ml/min; Est GFR (African American) 46.7; Est GFR (Non-African American) 40.3; Potassium 4.8 mmol/L (3.5-5.1)
[2020-07-26 08:56] LABS: Albumin Globulin Ratio 0.5 (0.9-2); Bilirubin,Total 0.5 mg/dl (0.2-1); Globulin 4.6 gm/dl (2.5-4.0); Total Protein 6.9 gm/dl (6.4-8.2)
[2020-07-26 09:26] LABS: HCO3 ABG 20 mmol/L (19-24); Oxygen Saturation ABG 83.3 % (90-95); PCO2 ABG 28 mmHg (35-46); PO2 ABG 47 mmHg (80-95); pH ABG 7.45 (7.35-7.45)
[2020-07-26 09:30] LABS: Allen Test Pos (Pos)
[2020-07-26] MEDS: REMDESIVIR 100mg: Days 2-5 IV SCH (10:00)
[2020-07-26] MEDS: NSS 30mL Flush, Days 1-5 IV SCH (11:00)
--- NOTE | 2020-07-26 11:29 | Pharmacy Report ---
Pharmacy Glycemic Short Note 2 - Date of Service July 26, 2020 - Glycemic Short BSG Results (Last 24 hours): 07/25/20 07/25/20 07/25/20 12:02 16:14 20:38 Glucose POC Glucose 275 H 238 H 190 H 07/26/20 07/26/20 07/26/20 06:24 07:29 11:12 Glucose 225 H POC Glucose 214 H 222 H OUTPATIENT ANTIDIABETIC REGIMEN: * Glyburide 2.5mg daily * Repaglinide 2mg prior to meals * Pioglitazone 45mg daily * Sitagliptin 50mg Q AM * A1c = 10.2% 07/22/20 ASSESSMENT: 09/25 * Over the last 24 hr, 89 units SQ insulin have been administered * Dexamethasone 6mg IV Q AM continues * Fasting BSG elevated this AM (FBS 214) w/ 45 units basal on board - will continue to up titrate * Post-prandial BSGs elevated x 3 yesterday - will continue to up titrate prandial insulin doses 07/25 * Type 2 diabetic admitted with COVID19 viral pneumonia * Continues to receive Dexamethasone 6mg PO daily in the AM * Fasting BSG 170 this AM w/ 40 units basal insulin on board, will titrate up the basal dose * Post-prandial BSGs did climb the 2nd half of the day yesterday, however post- prandial BSGs trended downward the prior day. On both days dexamethasone IV had been given and patient was eating. Will continue yesterday's "high" stress Novolog doses and follow pattern today prior to making changes. PLAN FOR INPATIENT GLYCEMIC CONTROL: * Hold outpatient oral diabetes medications * Basal insulin * Lantus 50 this AM + 5 additional units w/ Lunch * then Lantus Q AM per scale: 40 units if BSG less than 110; 55 units if BSG greater than 110 * Bolus insulin * NovoLog per scale ACHS or Q6hrs while NPO * Goal Range: Low 110 mg/dL - High 140 mg/dL * Correction Factor: 12 mg/dL/unit * Nutritional / Prandial insulin per carb ratio of 1 unit per 3 grams CHO consumed PLAN FOR DISCHARGE: * to be determined
[2020-07-26] MEDS ORDERED: INSULIN GLARGINE SOLOSTAR 100 UNITS/ML 3 ML PEN SC ONE (11:30)
--- NOTE | 2020-07-26 17:07 | Pulmonology Progress Note ---
Date of Service July 26, 2020 Assessment & Plan (1) History of squamous cell carcinoma: (2) Acute respiratory failure with hypoxia: Admission and Anticipated Discharge Date Admission Date: July 21, 2020 Chest x-ray 07/25/2020 personally reviewed: --Acute hypoxic respiratory failure Secondary to Covid-19 pneumonia Patient has been needing 100% FiO2 I was called as patient ABG showed PaO2 of 47% on 100% FiO2 BiPAP 09/20 Patient respiratory rate is high teens to low 20s. He is not in any acute distress. Patient's infiltrative process is bilaterally but more on the left side. Continue with total 10 days of dexamethasone, total of 5 days of remdesivir. Complete course of 5 days of antibiotics. Would recommend awake proning, if the patient is not able to tolerate awake proning it would be better for the patient to lie on the right side as there is less infiltrative process on the right. Incentive spirometry Continue with current care. No need to repeat blood gas for the patient. Correlate with pulse ox readings. If the patient is not in respiratory distress and is able to maintain his saturation greater than 88% would continue with same care. If there is any respiratory distress intubation could be thought of but I do not think intubation will add anything to the current care the patient is getting. Hyperglycemia control as per pharmacy and primary care. Case was discussed with Dr. Lopes and Trevor RN Please note the above document was generated using voice recognition software. It may contain grammatical, syntax or spelling errors.Any formal questions or concerns about the content, text or information contained within the body of this dictation should be directly addressed to the provider for clarification. Subjective Patient's condition was discussed with RN as well as hospitalist Review of Systems Review of Systems: Other Deferred Physical Exam Physical Exam: Patient not examined due to coronavirus restrictions and attempts to minimize exposure to staff and consider PPE. Please refer to the hospitalist exam for complete details. Results & Data Results & Data ([facility]) Vital Signs (Past 12 Hours) Vital Signs Temp Pulse Pulse Resp BP BP Pulse Ox 07/26/20 16:15 113 H 18 88 L 07/26/20 16:00 117 H 07/26/20 15:59 36.6 C 117 H 20 103/64 88 L 07/26/20 13:47 115 H 18 92 07/26/20 12:02 89 18 90 07/26/20 11:10 36.7 C 105 H 24 104/62 95 07/26/20 08:00 92 H 07/26/20 07:37 103 H 103 H 17 92 07/26/20 07:30 36.6 C 103 H 24 104/76 93 Pulse Ox 07/26/20 16:15 07/26/20 16:00 07/26/20 15:59 07/26/20 13:47 07/26/20 12:02 07/26/20 11:10 07/26/20 08:00 92 07/26/20 07:37 07/26/20 07:30 07/25/20 06:20 07/26/20 06:24 PG Care Time/CCT Total # of Minutes Spent Total Time Spent with Patient: Total time spent is greater than 50% in coordination of care (as documented) at patient's floor/unit and/or counseling patient: Coding Level of Care Code 22181 Subseq Hosp Care Lvl 2 Diagnoses History of squamous cell carcinoma Z85.89 Acute respiratory failure with hypoxia J96.01 Time Spent (min) 21
--- NOTE | 2020-07-26 18:07 | Hospitalist Progress Note ---
Date of Service July 26, 2020 Assessment & Plan (1) Respiratory failure: Acute respiratory failure with hypoxia COVID-19 pneumonia CXR:Nonspecific bilateral interstitial pulmonary opacities with a lower lung zone predominance. Coalescent plasma not indicated Discussed with patient regarding initiation Remdesivir--Risks and benefits explained:Patient agrees to proceed Initially did not start him on Rocephin given renal insufficiency No leukocytosis Or lymphopenia on presentation Procalcitonin: 0.15 CRP:2.35>2.57 Ferritin:2518>>1802 D-dimer:6760>>2780 Blood cultures: No growth to date Urine Culture: No growth Appreciate pulmonology input Completed azithromycin course Continue Rocephin Day 5 Continue dexamethasone, Remdesivir as per protocol Monitor QTC Monitor volume status Continue IV lasix Albuterol PRN Continue high flow oxygen, BiPAP PRN Continue Lovenox for DVT Px To complete Remdesivir course tomorrow ABG reviewed Readdressed Code Status today, updated family KADEN on CKD III Hyponatremia in setting of hypoglycemia Prerenal secondary to GI losses Baseline Cr:1.6 Cr: 2.4>2.1>1.9>1.5>1.4>1.6 Held valsartan Received IV fluids Appreciate nephrology input Monitor renal function Hyperglycemia DM II HbA1c 9.3 on May 10, 2020 A1c:10.2 Hold p.o. medications Insulin therapy while hospitalized Glycemic pharmacy consulted Diarrhea Likely due to COVID Check stool for C diff pending if re-occurs Hyperlipidemia Continue atorvastatin Hypertension Hold valsartan as relatively low BP Monitor blood pressure Hold HCTZ while on IV lasix H/O basal cell carcinoma H/O squamous cell carcinoma As per records H/O Vitamin D deficiency Vit D levels: normal DVT prophylaxis Lovenox SQ CODE STATUS DNI only as per my discussion with patient and Family Admission and Anticipated Discharge Date Admission Date: July 21, 2020 Subjective Patient is seen and examined at bedside " I sound better"" Was placed on BiPAP overnight, currently on high flow oxygen Discussed with pulmonology today States feeling better today Sore throat resolved Dyspnea better as per patient No significant cough Denies chest pain, dizziness, nausea, vomiting, abdominal pain, diarrhea Updated Patient's son over the phone Review of Systems Review of Systems: All systems reviewed & are unremarkable except as noted in HPI & below Physical Exam Physical Exam: Physical Exam: Vitals signs as noted above General Appearance:No apparent distress, Ill appearing Head: normocephalic, Atraumatic Eyes: normal inspection, EOMI Neck: supple, Trachea midline Respiratory/Chest: Decreased breath sounds, +B/L Basal Crackles Cardiovascular: S1, S2, No murmur, +Tachycardia Abdomen/GI:Soft, Non tender, Bowel sounds present Extremities/Musculoskelatal:normal inspection, no edema Neurologic/Psych:AAOX3, grossly no focal neurological deficits Skin: normal color, warm Results & Data Results & Data ([facility]) Vital Signs (Past 12 Hours) Vital Signs Temp Pulse Pulse Resp BP BP Pulse Ox 07/26/20 16:15 113 H 18 88 L 07/26/20 16:00 117 H 07/26/20 15:59 36.6 C 117 H 20 103/64 88 L 07/26/20 13:47 115 H 18 92 07/26/20 12:02 89 18 90 07/26/20 11:10 36.7 C 105 H 24 104/62 95 07/26/20 08:00 92 H 07/26/20 07:37 103 H 103 H 17 92 07/26/20 07:30 36.6 C 103 H 24 104/76 93 Pulse Ox 07/26/20 16:15 07/26/20 16:00 07/26/20 15:59 07/26/20 13:47 07/26/20 12:02 07/26/20 11:10 07/26/20 08:00 92 07/26/20 07:37 07/26/20 07:30 Laboratory Results [facility] 07/26/20 06:24 Sodium 145 Potassium 4.8 Chloride 113 H Carbon Dioxide 23 BUN 57 H Creatinine 1.62 H Glucose 225 H Calcium 9.5 Liver Function 07/26/20 Range/Units 06:24 Total Bilirubin 0.5 (0.2-1) mg/dl AST 33 (15-37) U/L ALT 37 (12-78) U/L Alkaline Phosphatase 82 (45-117) U/L Albumin 2.3 L (3.4-5.0) gm/dl (1) Respiratory failure Chronicity: acute Respiratory failure complication: hypoxia Qualified Code(s): J96.01 - Acute respiratory failure with hypoxia
[2020-07-26] MEDS: ATORVASTATIN 20 MG TAB PO SCH (20:42)
[2020-07-27] MEDS: LEVALBUTEROL TARTRATE 15 GM HFA.AER.AD INH SCH ×4 (00:48→19:50)
[2020-07-27 05:32] LABS: Hematocrit (blood only) 44.6 % (42-52); Hemoglobin 14.5 g/dL (14.0-18.0); Mean Corpuscular Hemoglobin 29.2 pg (25-34); Mean Corpuscular Hgb Conc 32.5 g/dL (32-36); Mean Corpuscular Volume 89.7 fL (80-100); Mean Platelet Volume 10.8 fL (7.4-10.4); Platelet Count 309 K/uL (130-400); RDW Coefficient of Variation 14.6 % (11.5-14.5); RDW Standard Deviation 47.7 fL (36.4-46.3); Red Blood Count 4.97 M/uL (4.7-6.1)
[2020-07-27] MEDS: FUROSEMIDE 20 MG in SYRINGE 0 ML IV SCH ×2 (05:41→12:09)
[2020-07-27 05:59] LABS: Albumin Level 2.3 gm/dl (3.4-5.0); BUN Creatinine Ratio 39.6 (10-20); Calcium 8.9 mg/dl (8.5-10.1); Est GFR (African American) 47.5; Est GFR (Non-African American) 40.9; Magnesium 2.6 mg/dl (1.8-2.4); Potassium 4.3 mmol/L (3.5-5.1)
[2020-07-27 06:01] LABS: Albumin Globulin Ratio 0.5 (0.9-2); Bilirubin,Total 0.7 mg/dl (0.2-1); Globulin 4.6 gm/dl (2.5-4.0); Total Protein 6.9 gm/dl (6.4-8.2)
[2020-07-27 06:21] LABS: Basophils # (auto) 0.02 K/uL (0-0.2); Basophils % (auto) 0.1 %; Eosinophils # (auto) 0.01 K/uL (0-0.5); Eosinophils % (auto) 0.1 %; Immature Granulocytes # (auto) 0.13 K/uL (0.00-0.02); Immature Granulocytes % (auto) 0.7 %; Lymphocytes # (auto) 6.11 K/uL (1.2-3.4); Lymphocytes % (auto) 33.8 %; Monocytes % (auto) 3.9 %; Neutrophils # (auto) 11.13 K/uL (1.4-6.5); Neutrophils % (auto) 61.4 %; RBC Morphology Unremarkable
[2020-07-27] MEDS: FAMOTIDINE 10 MG TABLET PO SCH ×2 (07:41→20:04)
[2020-07-27] MEDS: DEXAMETHASONE SOD PHOSPHATE 6 MG in SYRINGE 0 ML IV SCH (07:42)
[2020-07-27] MEDS: ZINC SULFATE 220 MG CAPSULE PO SCH (07:42)
[2020-07-27] MEDS: ASCORBIC ACID 500 MG TAB PO SCH (07:42)
[2020-07-27] MEDS: ENOXAPARIN 100 MG/1ML SYR SQ SCH ×2 (07:43→20:02)
[2020-07-27] MEDS: CHLORASEPTIC 1.4% SOLN 180 ML BTL MT PRN (07:44)
--- NOTE | 2020-07-27 08:22 | XRay Report ---
SINGLE VIEW CHEST CLINICAL HISTORY: Respiratory failure. Covid. FINDINGS: An AP, portable, upright chest radiograph is compared to study dated 07/25/2020. The examin ation is degraded by portable technique and patient rotation. The heart is enlarged noting atheroscle rotic calcification of the thoracic aorta. The pulmonary vasculature is noncongested. Diffuse coarsen ing of interstitium is again noted, as is bibasilar airspace consolidation. A small Left pleural effu amparo is suspected. No pneumothorax is seen. The skeletal structures are osteopenic. The bony thorax i s grossly intact. IMPRESSION: 1. Interstitial thickening and bibasilar consolidation is again noted. Consolidative change at the [facility] lung base has modestly increased as compared to 07/25/2020. 2. Suspect a small left pleural effusion. 3. Cardiac enlargement without radiographic evidence of congestive failure. ACT 112: Negative or not required by law. Electronically signed by: Robin Crisostomo M.D. 07/27/2020 8:20 AM
[2020-07-27] MEDS: cefTRIAXone SODIUM 2,000 MG in DEXTROSE 5% 50 ML IV SCH (09:22)
[2020-07-27] MEDS: INSULIN GLARGINE SOLOSTAR 100 UNITS/ML 3 ML PEN SC SCH (09:31)
[2020-07-27] MEDS: INSULIN ASPART 100 UNITS/ML 3 ML PEN SC SCH ×4 (09:33→20:12)
[2020-07-27] MEDS: REMDESIVIR 100mg: Days 2-5 IV SCH (10:30)
--- NOTE | 2020-07-27 11:24 | Pharmacy Report ---
Pharmacy Glycemic Short Note 2 - Date of Service July 27, 2020 - Glycemic Short BSG Results (Last 24 hours): 07/26/20 07/26/20 07/27/20 17:06 20:34 04:25 Glucose 140 H POC Glucose 236 H 239 H 07/27/20 07:13 Glucose POC Glucose 175 H OUTPATIENT ANTIDIABETIC REGIMEN: * Glyburide 2.5mg daily * Repaglinide 2mg prior to meals * Pioglitazone 45mg daily * Sitagliptin 50mg Q AM * A1c = 10.2% 07/22/20 ASSESSMENT: 07/27 * Over the last 24 hrs, 134 units SQ insulin have been administered while patient is tolerating a diet * Dexamethasone 6mg IV Q AM continues (Day 7) * Fasting BSG 140-175 this AM with 55 units basal on board and after receiving 9 units correctional insulin HS - will continue to up titrate * Post-prandial BSGs elevated x 3 yesterday, however primary deficiency appeared to be more basal than prandial given lack of climbing BSGs following meals. Will make small adjustment to prandial insulin dose today as basal dose is also being increased. 07/26 * Over the last 24 hrs, 89 units SQ insulin have been administered while patient is tolerating a diet * Dexamethasone 6mg IV Q AM continues (Day 6) * Fasting BSG elevated this AM (FBS 214) w/ 45 units basal on board - will continue to up titrate * Post-prandial BSGs elevated x 3 yesterday - will continue to up titrate prandial insulin doses 07/25 * Type 2 diabetic admitted with COVID19 viral pneumonia * Continues to receive Dexamethasone 6mg PO daily in the AM * Fasting BSG 170 this AM w/ 40 units basal insulin on board, will titrate up the basal dose * Post-prandial BSGs did climb the 2nd half of the day yesterday, however post- prandial BSGs trended downward the prior day. On both days dexamethasone IV had been given and patient was eating. Will continue yesterday's "high" stress Novolog doses and follow pattern today prior to making changes. PLAN FOR INPATIENT GLYCEMIC CONTROL: * Hold outpatient oral diabetes medications * Basal insulin * Lantus Q AM per scale: 40 units if BSG less than 110; 65 units if BSG greater than 110 * Bolus insulin * NovoLog per scale ACHS or Q6hrs while NPO * Goal Range: Low 110 mg/dL - High 140 mg/dL * Correction Factor: 12 mg/dL/unit * Nutritional / Prandial insulin per carb ratio of 1 unit per 2.5 grams CHO consumed PLAN FOR DISCHARGE: * to be determined
--- NOTE | 2020-07-27 12:01 | Hospitalist Progress Note ---
Date of Service July 27, 2020 Assessment & Plan (1) Acute respiratory failure with hypoxia: O2 sats as low as 85% on 15 L NRFM day of admission. Acute respiratory failure due to COVID pneumonia. Requiring BiPAP alternating with high flow nasal O2 40 LPM. D-dimer elevated. Must consider possibility of pulmonary thromboembolism or pulmonary artery thrombotic disease. Started empirically on therapeutic SQ enoxaparin. Diagnostic imaging not obtained due to COVID precautions. Diurese as tolerated to optimize pulmonary status. Continue supplemental O2 / BiPAP as necessary. (2) Pneumonia due to COVID-19 virus: Chest x-ray demonstrated bilateral interstitial infiltrates consistent with COVID pneumonia. Specific therapies as discussed below. (3) COVID-19: Ill since ~ 07/16. SARS-CoV-2 done at retail pharmacy on 07/18 was positive. Associated malaise, cough, SOB, GI symptoms. COVID labs: lymphocytes 1520 >> 6110 CRP 2.35 > 2.57 procalcitonin 0.15 ferritin 2518 > 1802 troponin 0.02 D-dimer 6760 > 2780 Receiving IV dexamethasone- today = day # 5/10 Received 5 day course of remdesivir. Will not extend course to 10 days because: unlikely to offer clinical benefit starting to improve clinically (at least subjectively) rising LFT's. Unlikely that convalescent plasma will offer benefit given duration of illness. (4) Acute kidney injury: CKD III with baseline creatinine around 1.5. Creatinine at time of admission 2.47. Acute kidney injury secondary to COVID and associated problems. Nephrology consulted. Valsartan and HCTZ held. Creatinine today = 1.60. Follow. (5) Hypertension: Hypertension usually managed with valsartan + HCTZ- held due to KADEN. BP this morning 121/67. Follow. (6) CKD (chronic kidney disease), stage III: CKD III with baseline creatinine around 1.5. Underlying DM and hypertension. KADEN as discussed above. 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 Usually managed with oral agents. Hgb A1c 10.2. Worsening glycemic control due to steroid therapy. Pharmacy consulted for glycemic management. Lantus / NovoLog per protocol. FBS today = 175. (8) DVT prophylaxis: Receiving SQ enoxaparin. (9) Discharge planning issues: Discharge disposition to be determined. Internal Medicine follow-up with Dr. Barfield. Son Ehsan given update by phone. Admission and Anticipated Discharge Date Admission Date: July 21, 2020 Subjective Recheck for COVID-19 and other problems. Patient seen in their room around 1150. Subjectively, feels a little better over past 1-2 days. Still requiring BiPAP alternating with high flow nasal O2 @ 40 LPM. O2 desaturations noted with minimal exertion. Occasional nonproductive cough. Review of Systems: Constitutional- no fever. Cardiac- no chest pain. Pulmonary- as noted above. GI- no nausea, vomiting, diarrhea, melena, hematochezia. - no urinary symptoms. Otherwise, as noted above. Physical Exam Constitutional: + ill appearing; no acute distress ENMT: wearing BiPAP Respiratory: no respiratory distress Auscultation: + rales Cardiovascular: Rate/Rhythm: regular rate and regular rhythm Vessels: no JVD Extremities: no calf tenderness and no edema Gastrointestinal (Abdomen): normal bowel sounds, soft, nontender, no hepatosplenomegaly Musculoskeletal: Extremities: no cyanosis Skin: no rashes, warm and dry Psychiatric: Orientation: alert Results & Data Results & Data ([facility]) Vital Signs (Past 12 Hours) Vital Signs Temp Pulse Pulse Resp BP Pulse Ox Pulse Ox 07/27/20 11:30 36.8 C 101 H 23 117/76 22 L 07/27/20 10:59 109 H 19 93 07/27/20 07:49 91 07/27/20 07:23 116 H 22 86 L 07/27/20 07:14 36.6 C 114 H 22 121/67 84 L 07/27/20 06:20 101 H 20 89 L 07/27/20 04:15 36.5 C 102 H 17 114/76 92 07/27/20 03:41 98 H 20 91 07/27/20 00:46 95 H 15 92 07/27/20 00:45 84 15 92 Laboratory Results - last 24 hr 07/26/20 07/26/20 07/27/20 17:06 20:34 04:25 WBC 18.10 H RBC 4.97 Hgb 14.5 Hct 44.6 MCV 89.7 MCH 29.2 MCHC 32.5 RDW Std Deviation 47.7 H RDW Coeff of Lesia 14.6 H Plt Count 309 MPV 10.8 H Immature Gran % (Auto) 0.7 Neut % (Auto) 61.4 Lymph % (Auto) 33.8 [place] % (Auto) 3.9 Eos % (Auto) 0.1 Baso % (Auto) 0.1 Neut # (Auto) 11.13 H Lymph # (Auto) 6.11 H [place] # (Auto) 0.70 H Eos # (Auto) 0.01 Baso # (Auto) 0.02 Immature Gran # (Auto) 0.13 H RBC Morphology Unremarkable Sodium Potassium Chloride Carbon Dioxide Anion Gap BUN Creatinine Est Cr Clr Drug Dosing Est GFR ( Amer) Est GFR (Non-Af Amer) BUN/Creatinine Ratio Glucose POC Glucose 236 H 239 H Calcium Magnesium Total Bilirubin AST ALT Alkaline Phosphatase Total Protein Albumin Globulin Albumin/Globulin Ratio 07/27/20 07/27/20 07/27/20 04:25 07:13 11:01 WBC RBC Hgb Hct MCV MCH MCHC RDW Std Deviation RDW Coeff of Lesia Plt Count MPV Immature Gran % (Auto) Neut % (Auto) Lymph % (Auto) [place] % (Auto) Eos % (Auto) Baso % (Auto) Neut # (Auto) Lymph # (Auto) [place] # (Auto) Eos # (Auto) Baso # (Auto) Immature Gran # (Auto) RBC Morphology Sodium 144 Potassium 4.3 Chloride 112 H Carbon Dioxide 27 Anion Gap 5.0 BUN 63 H Creatinine 1.60 H Est Cr Clr Drug Dosing 45.0 Est GFR ( Amer) 47.5 Est GFR (Non-Af Amer) 40.9 BUN/Creatinine Ratio 39.6 H Glucose 140 H POC Glucose 175 H 230 H Calcium 8.9 Magnesium 2.6 H Total Bilirubin 0.7 AST 92 H ALT 115 H Alkaline Phosphatase 122 H Total Protein 6.9 Albumin 2.3 L Globulin 4.6 H Albumin/Globulin Ratio 0.5 L
[2020-07-27] MEDS: NSS 30mL Flush, Days 1-5 IV SCH (12:09)
--- NOTE | 2020-07-27 13:37 | Nephrology Progress Note ---
Date of Service July 27, 2020 Assessment & Plan (1) CKD (chronic kidney disease), stage III: -at baseline; KADEN from admission (presenting creat 2.5) resolved w/in 72 hrs admission -dailybmp Present on Admission?: Yes (2) Acute respiratory failure with hypoxia: -per hospitalist and pulmonary -low threshold to uptitrate lasix to 30 mg IV tid Will d/w Dr Wesley Present on Admission?: Yes Admission and Anticipated Discharge Date Admission Date: July 21, 2020 Subjective care reviewed w/ RN. Pt back on bipap > sats drop with eating or brushing t eeth; also using it most of night; RN reports trace edema; meds reviewed along with planned courses of dexameth, remdesivir, abtx Review of Systems Review of Systems: Other (pt on bipap) Physical Exam Physical Exam: PE deferred d/t need to preserve PPE and minimize staff Covid exposure; pls refer to hospitalist note for today Results & Data ([facility]) Vital Signs (Past 12 Hours) Vital Signs Temp Pulse Pulse Resp BP Pulse Ox Pulse Ox 07/27/20 12:38 91 07/27/20 12:37 81 L 07/27/20 11:30 36.8 C 101 H 23 117/76 22 L 07/27/20 10:59 109 H 19 93 07/27/20 07:49 07/27/20 07:23 116 H 22 86 L 07/27/20 07:14 36.6 C 114 H 22 121/67 84 L 07/27/20 06:20 101 H 20 89 L 07/27/20 04:15 36.5 C 102 H 17 114/76 92 07/27/20 03:41 98 H 20 91 Pulse Ox 07/27/20 12:38 07/27/20 12:37 82 L 07/27/20 11:30 07/27/20 10:59 07/27/20 07:49 91 07/27/20 07:23 07/27/20 07:14 07/27/20 06:20 07/27/20 04:15 07/27/20 03:41 Laboratory Results 07/27/20 04:25 07/27/20 04:25
[2020-07-27] MEDS: FUROSEMIDE 30 MG in SYRINGE 0 ML IV SCH (17:34)
[2020-07-27] MEDS: ALBUTEROL 0.083% NEBU SOLN 3 ML VIAL NEB PRN (18:32)
[2020-07-27] MEDS: METOPROLOL TARTRATE 25 MG TAB PO SCH (20:00)
[2020-07-27] MEDS: ATORVASTATIN 20 MG TAB PO SCH (20:03)
[2020-07-28] MEDS: FUROSEMIDE 30 MG in SYRINGE 0 ML IV SCH ×4 (00:55→17:26)
--- NOTE | 2020-07-28 05:50 | Electrocardiogram Report ---
Test Reason : Blood Pressure : / mmHG Vent. Rate : 123 BPM Atrial Rate : 106 BPM P-R Int : 140 ms QRS Dur : 082 ms QT Int : 330 ms P-R-T Axes : 000 -42 098 degrees QTc Int : 472 ms Sinus tachycardia with atrial run and PVCs Left axis deviation Inferior infarct (cited on or before 21-JUL-2020) Possible Anterior infarct (cited on or before 21-JUL-2020) Abnormal ECG When compared with ECG of 24-JUL-2020 11:52, Nonsustained atrial tachycardia run is now present Premature ventricular complexes are now Present Inverted T waves have replaced nonspecific T wave abnormality in Lateral leads Confirmed by Sergio Spangler ([id number]) on 07/28/2020 5:50:06 AM Referred By: REFERRED SELF Confirmed By:Sergio Spangler
[2020-07-28 06:00] LABS: Albumin Level 2.3 gm/dl (3.4-5.0); BUN Creatinine Ratio 39.8 (10-20); Calcium 9.1 mg/dl (8.5-10.1); Creatinine Clr Calc Pharmacy 44.4 ml/min; Est GFR (African American) 46.7; Est GFR (Non-African American) 40.3; Potassium 4.3 mmol/L (3.5-5.1)
[2020-07-28 06:03] LABS: Albumin Globulin Ratio 0.5 (0.9-2); Bilirubin,Total 0.4 mg/dl (0.2-1); Globulin 4.6 gm/dl (2.5-4.0); Total Protein 6.9 gm/dl (6.4-8.2)
[2020-07-28] MEDS: LEVALBUTEROL TARTRATE 15 GM HFA.AER.AD INH SCH ×5 (07:07→23:52)
[2020-07-28] MEDS: ALBUTEROL 0.083% NEBU SOLN 3 ML VIAL NEB PRN ×2 (07:07)
[2020-07-28] MEDS: DEXAMETHASONE SOD PHOSPHATE 6 MG in SYRINGE 0 ML IV SCH (08:21)
[2020-07-28] MEDS: FAMOTIDINE 10 MG TABLET PO SCH ×2 (08:21→20:24)
[2020-07-28] MEDS: ENOXAPARIN 100 MG/1ML SYR SQ SCH ×2 (08:22→20:24)
[2020-07-28] MEDS: METOPROLOL TARTRATE 25 MG TAB PO SCH (08:24)
[2020-07-28] MEDS: cefTRIAXone SODIUM 2,000 MG in DEXTROSE 5% 50 ML IV SCH (08:25)
[2020-07-28] MEDS: ASCORBIC ACID 500 MG TAB PO SCH (08:26)
[2020-07-28] MEDS: ZINC SULFATE 220 MG CAPSULE PO SCH (08:26)
[2020-07-28] MEDS: CHLORASEPTIC 1.4% SOLN 180 ML BTL MT PRN (08:28)
[2020-07-28] MEDS: INSULIN GLARGINE SOLOSTAR 100 UNITS/ML 3 ML PEN SC SCH (08:33)
[2020-07-28] MEDS: INSULIN ASPART 100 UNITS/ML 3 ML PEN SC SCH ×4 (08:35→21:48)
--- NOTE | 2020-07-28 11:09 | Pharmacy Report ---
Pharmacy Glycemic Short Note 2 - Date of Service July 28, 2020 - Glycemic Short BSG Results (Last 24 hours): 07/27/20 07/27/20 07/27/20 11:01 16:31 19:59 Glucose POC Glucose 230 H 151 H 117 H 07/28/20 07/28/20 04:55 07:56 Glucose 66 L POC Glucose 85 OUTPATIENT ANTIDIABETIC REGIMEN: * Glyburide 2.5mg daily * Repaglinide 2mg prior to meals * Pioglitazone 45mg daily * Sitagliptin 50mg Q AM * A1c = 10.2% 07/22/20 ASSESSMENT: 07/28 * Over the last 24 hr, 137 units of SQ insulin have been administered while patient is tolerating a diet * Fasting BSG 66-85 this AM with 65 units Lantus on board and no correctional insulin administered last evening - will titrate down * Post-prandial BSGs better controlled yesterday using more aggressive carb coverage - however given BSG pattern will use this larger prandial insulin dose with breakfast and lunch only and utilize smaller dose with evening meal 07/27 * Over the last 24 hrs, 134 units SQ insulin have been administered while patient is tolerating a diet * Dexamethasone 6mg IV Q AM continues (Day 7) * Fasting BSG 140-175 this AM with 55 units basal on board and after receiving 9 units correctional insulin HS - will continue to up titrate * Post-prandial BSGs elevated x 3 yesterday, however primary deficiency appeared to be more basal than prandial given lack of climbing BSGs following meals. Will make small adjustment to prandial insulin dose today as basal dose is also being increased. 07/26 * Over the last 24 hrs, 89 units SQ insulin have been administered while patient is tolerating a diet * Dexamethasone 6mg IV Q AM continues (Day 6) * Fasting BSG elevated this AM (FBS 214) w/ 45 units basal on board - will continue to up titrate * Post-prandial BSGs elevated x 3 yesterday - will continue to up titrate prandial insulin doses 07/25 * Type 2 diabetic admitted with COVID19 viral pneumonia * Continues to receive Dexamethasone 6mg PO daily in the AM * Fasting BSG 170 this AM w/ 40 units basal insulin on board, will titrate up the basal dose * Post-prandial BSGs did climb the 2nd half of the day yesterday, however post- prandial BSGs trended downward the prior day. On both days dexamethasone IV had been given and patient was eating. Will continue yesterday's "high" stress Novolog doses and follow pattern today prior to making changes. PLAN FOR INPATIENT GLYCEMIC CONTROL: * Hold outpatient oral diabetes medications * Basal insulin * Lantus Q AM per scale: 40 units if BSG less than 110; 50 units if BSG greater than 110 * Bolus insulin * NovoLog per scale ACHS or Q6hrs while NPO * Goal Range: Low 110 mg/dL - High 140 mg/dL * Correction Factor: 12 mg/dL/unit * Nutritional / Prandial insulin per carb ratio of 1 unit per 2.5 grams CHO consumed w/ breakfast and lunch, 1 unit per 4gm CHO consumed w/ dinner PLAN FOR DISCHARGE: * to be determined
--- NOTE | 2020-07-28 17:28 | Nephrology Progress Note ---
Date of Service July 28, 2020 Assessment & Plan (1) CKD (chronic kidney disease), stage III: -at baseline; KADEN from admission (presenting creat 2.5) resolved w/in 72 hrs admission -daily bmp (2) Acute respiratory failure with hypoxia: -per hospitalist and pulmonary -yesterday upped lasix to 30 mg IV q6h; now 2.5 L negative w/ hypotension/tachyc ardia; will hold 1800 and mn lasix dose (next 2 lasix doses); care coordinated w/ dR Wesley and attempting to coord w/ nursing Admission and Anticipated Discharge Date Admission Date: July 21, 2020 Subjective chart review only; care d/w Dr Wesley and RN. pt having SVT runs and dropping BP - BB had to be held d/t hypotension; 2.5L negative after mn, am, midday lasix doses; remains on bipap/ high flow 02 Review of Systems Review of Systems: Other (deferred as pt on bipap/hi flow 02) Physical Exam Physical Exam: PE deferred d/t need to preserve PPE and minimize staff Covid exposure; pls refer to hospitalist note for today Results & Data ([facility]) Vital Signs (Past 12 Hours) Vital Signs Temp Pulse Pulse Pulse Resp BP Pulse Ox 07/28/20 16:47 87 L 07/28/20 16:01 109 H 07/28/20 15:35 93 H 18 95 07/28/20 15:07 36.8 C 108 H 22 89/58 L 93 07/28/20 13:19 108 H 22 91 07/28/20 13:17 108 H 22 91 07/28/20 12:55 91 07/28/20 12:17 36.8 C 95 H 18 95/61 L 90 07/28/20 11:53 97 H 20 96 07/28/20 11:40 07/28/20 08:52 07/28/20 08:21 37.0 C 110 H 18 105/62 82 L 07/28/20 08:00 110 H 07/28/20 07:10 118 H 24 97 07/28/20 07:08 115 H 24 97 Pulse Ox 07/28/20 16:47 07/28/20 16:01 07/28/20 15:35 07/28/20 15:07 07/28/20 13:19 07/28/20 13:17 10/15/20 12:55 07/28/20 12:17 07/28/20 11:53 07/28/20 11:40 93 07/28/20 08:52 91 07/28/20 08:21 07/28/20 08:00 07/28/20 07:10 07/28/20 07:08 Laboratory Results 07/27/20 04:25 07/28/20 04:55
[2020-07-28] MEDS: ATORVASTATIN 20 MG TAB PO SCH (20:24)
--- NOTE | 2020-07-28 20:34 | Hospitalist Progress Note ---
Date of Service July 28, 2020 Assessment & Plan (1) Acute respiratory failure with hypoxia: O2 sats as low as 85% on 15 L NRFM day of admission. Acute respiratory failure due to COVID pneumonia. Requiring BiPAP alternating with high flow nasal O2 40 LPM. D-dimer elevated. Must consider possibility of pulmonary thromboembolism or pulmonary artery thrombotic disease. Started empirically on therapeutic SQ enoxaparin. Diagnostic imaging not obtained due to COVID precautions. Diurese as tolerated to optimize pulmonary status. Continue supplemental O2 / BiPAP as necessary. (2) Pneumonia due to COVID-19 virus: Chest x-ray demonstrated bilateral interstitial infiltrates consistent with COVID pneumonia. Specific therapies as discussed below. (3) COVID-19: Ill since ~ 07/16. SARS-CoV-2 done at retail pharmacy on 07/18 was positive. Associated malaise, cough, SOB, GI symptoms. COVID labs: lymphocytes 1520 >> 6110 CRP 2.35 > 2.57 procalcitonin 0.15 ferritin 2518 > 1802 troponin 0.02 D-dimer 6760 > 2780 COVID therapies: Receiving IV dexamethasone- today = day # 6/10 Received 5 day course of remdesivir. Will not extend course to 10 days because: unlikely to offer clinical benefit elevated LFT's Unlikely that convalescent plasma will offer benefit given duration of illness. (4) Acute kidney injury: CKD III with baseline creatinine around 1.5. Creatinine at time of admission 2.47. Acute kidney injury secondary to COVID and associated problems. Nephrology consulted. Valsartan and HCTZ held. Creatinine today = 1.62. Follow. (5) Hypertension: Hypertension usually managed with valsartan + HCTZ- held due to KADEN. Started low dose metoprolol because of SVT. BP's low this morning. Metoprolol stopped. Follow. (6) CKD (chronic kidney disease), stage III: CKD III with baseline creatinine around 1.5. Underlying DM and hypertension. KADEN as discussed above. 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 Usually managed with oral agents. Hgb A1c 10.2. Worsening glycemic control due to steroid therapy. Pharmacy consulted for glycemic management. Lantus / NovoLog per protocol. FBS today = 85. (8) DVT prophylaxis: Receiving SQ enoxaparin. (9) Discharge planning issues: Discharge disposition to be determined. Internal Medicine follow-up with Dr. Barfield. Son Ehsan given update this evening by phone. Admission and Anticipated Discharge Date Admission Date: July 21, 2020 Subjective Recheck for COVID-19 and other problems. Patient seen in their room around 1120. Respiratory status about the same. Still requiring BiPAP alternating with high flow nasal O2 @ 40 LPM. O2 desaturations noted with minimal exertion. Rare nonproductive cough. Telemetry data reviewed with tech. Usually ST in low 100's; 1 brief run of probable SVT this morning. Review of Systems: Constitutional- no fever. Cardiac- no chest pain. Pulmonary- as noted above. GI- no nausea, vomiting, diarrhea, melena, hematochezia. - Reddy cath. Otherwise, as noted above. Physical Exam Constitutional: + ill appearing; no acute distress ENMT: wearing BiPAP Respiratory: no respiratory distress Auscultation: + rales Cardiovascular: Rate/Rhythm: regular rate and regular rhythm Vessels: no JVD Extremities: no calf tenderness and no edema Gastrointestinal (Abdomen): normal bowel sounds, soft, nontender, no hepatosplenomegaly Musculoskeletal: Extremities: no cyanosis Skin: no rashes, warm and dry Psychiatric: Orientation: alert Results & Data Results & Data ([facility]) Vital Signs (Past 12 Hours) Vital Signs Temp Pulse Pulse Pulse Resp BP BP 07/28/20 19:47 107 H 22 07/28/20 19:45 107 H 22 07/28/20 19:04 37.1 C 102 H 19 96/83 L 07/28/20 18:48 07/28/20 18:00 07/28/20 16:47 07/28/20 16:01 109 H 07/28/20 15:35 93 H 18 07/28/20 15:07 36.8 C 108 H 22 89/58 L 07/28/20 13:19 108 H 22 07/28/20 13:17 108 H 22 07/28/20 12:55 07/28/20 12:17 36.8 C 95 H 18 95/61 L 07/28/20 11:53 97 H 20 07/28/20 11:40 07/28/20 08:52 Pulse Ox Pulse Ox 07/28/20 19:47 90 07/28/20 19:45 90 07/28/20 19:04 92 07/28/20 18:48 91 07/28/20 18:00 93 07/28/20 16:47 87 L 07/28/20 16:01 07/28/20 15:35 95 07/28/20 15:07 93 07/28/20 13:19 91 07/28/20 13:17 91 07/28/20 12:55 91 07/28/20 12:17 90 07/28/20 11:53 96 07/28/20 11:40 93 07/28/20 08:52 91 Laboratory Results Laboratory Results - last 24 hr 07/28/20 07/28/20 07/28/20 04:55 07:56 11:26 Sodium 143 Potassium 4.3 Chloride 110 H Carbon Dioxide 29 Anion Gap 4.0 BUN 64 H Creatinine 1.62 H Est Cr Clr Drug Dosing 44.4 Est GFR ( Amer) 46.7 Est GFR (Non-Af Amer) 40.3 BUN/Creatinine Ratio 39.8 H Glucose 66 L POC Glucose 85 156 H Calcium 9.1 Total Bilirubin 0.4 AST 52 H ALT 86 H Alkaline Phosphatase 115 Total Protein 6.9 Albumin 2.3 L Globulin 4.6 H Albumin/Globulin Ratio 0.5 L 07/28/20 07/28/20 16:33 20:21 Sodium Potassium Chloride Carbon Dioxide Anion Gap BUN Creatinine Est Cr Clr Drug Dosing Est GFR ( Amer) Est GFR (Non-Af Amer) BUN/Creatinine Ratio Glucose POC Glucose 136 H 203 H Calcium Total Bilirubin AST ALT Alkaline Phosphatase Total Protein Albumin Globulin Albumin/Globulin Ratio
[2020-07-29] MEDS: FUROSEMIDE 30 MG in SYRINGE 0 ML IV SCH ×3 (00:29→17:05)
[2020-07-29 06:18] LABS: Hematocrit (blood only) 46.8 % (42-52); Hemoglobin 15.4 g/dL (14.0-18.0); Mean Corpuscular Hemoglobin 29.6 pg (25-34); Mean Corpuscular Hgb Conc 32.9 g/dL (32-36); Mean Corpuscular Volume 89.8 fL (80-100); Mean Platelet Volume 11.4 fL (7.4-10.4); Platelet Count 336 K/uL (130-400); RDW Coefficient of Variation 14.5 % (11.5-14.5); RDW Standard Deviation 47.2 fL (36.4-46.3); Red Blood Count 5.21 M/uL (4.7-6.1); White Blood Count 19.96 K/uL (4.8-10.8)
[2020-07-29 06:50] LABS: Albumin Level 2.1 gm/dl (3.4-5.0); BUN Creatinine Ratio 45.9 (10-20); Bilirubin Direct 0.1 mg/dl (0-0.2); C Reactive Protein 6.95 mg/dl (0-0.29); Calcium 9.5 mg/dl (8.5-10.1); Creatinine Clr Calc Pharmacy 42.8 ml/min; Est GFR (African American) 44.7; Est GFR (Non-African American) 38.6; Potassium 4.1 mmol/L (3.5-5.1)
[2020-07-29 06:53] LABS: Albumin Globulin Ratio 0.4 (0.9-2); Bilirubin,Total 0.5 mg/dl (0.2-1); Globulin 4.8 gm/dl (2.5-4.0); Total Protein 6.9 gm/dl (6.4-8.2)
[2020-07-29] MEDS: LEVALBUTEROL TARTRATE 15 GM HFA.AER.AD INH SCH ×3 (07:35→19:12)
[2020-07-29] MEDS: ZINC SULFATE 220 MG CAPSULE PO SCH (08:30)
[2020-07-29] MEDS: ASCORBIC ACID 500 MG TAB PO SCH (08:30)
[2020-07-29] MEDS: FAMOTIDINE 10 MG TABLET PO SCH ×2 (08:31→20:45)
[2020-07-29] MEDS: ENOXAPARIN 100 MG/1ML SYR SQ SCH ×2 (08:31→20:44)
[2020-07-29] MEDS: DEXAMETHASONE SOD PHOSPHATE 6 MG in SYRINGE 0 ML IV SCH (08:32)
[2020-07-29] MEDS: INSULIN ASPART 100 UNITS/ML 3 ML PEN SC SCH ×4 (09:16→20:48)
--- NOTE | 2020-07-29 09:18 | Nephrology Progress Note ---
Date of Service July 29, 2020 Assessment & Plan (1) CKD (chronic kidney disease), stage III: -baseline creatinine mid ones; acceptably close to baseline; KADEN from admission (presenting creat 2.5) resolved w/in 72 hrs admission; chemistries acceptable; BUN upcreep likely combined from steroids and diuresis -daily bmp (2) Acute respiratory failure with hypoxia: -per hospitalist and pulmonary -as of this am back on lasix 30 mg IV q6h; so far 900 mL negative on the day; 1800 and mn lasix doses held yesterday and pt ultimately 1.4L negative yest erday. hypotension improved/stabilized this AM (but 2 readings only). tachycardia persists; reasonable to continue current lasix dosing >> pt remains with borderline respiratory status and per pulmonary eval 07/26 intubation not likely to augment outcomes in his current care if it were to be needed >>>will reassess BP/volume status through the day in case late day diuretics need to be held Admission and Anticipated Discharge Date Admission Date: July 21, 2020 Subjective CHART REVIEW ONLY; data reviewed as below including also current medications; 1.4 L negative on the day yesterday Review of Systems Review of Systems: Other (deferred d/t pt on bipap/ not advisable to speak by phone) Physical Exam Physical Exam: PE deferred d/t need to preserve PPE and minimize staff Covid exposure; pls refer to hospitalist note for today Results & Data ([facility]) Vital Signs (Past 12 Hours) Vital Signs Temp Pulse Pulse Pulse Resp BP BP 07/29/20 08:25 36.5 C 116 H 24 110/62 07/29/20 07:43 112 H 23 07/29/20 07:39 111 H 20 07/29/20 04:33 36.5 C 99 H 18 115/73 07/29/20 03:53 94 H 26 H 07/28/20 23:52 107 H 18 07/28/20 23:50 97 H 18 07/28/20 23:30 36.4 C L 101 H 20 95/64 L Pulse Ox 07/29/20 08:25 93 07/29/20 07:43 90 07/29/20 07:39 91 07/29/20 04:33 94 07/29/20 03:53 91 07/28/20 23:52 90 07/28/20 23:50 90 07/28/20 23:30 94 Laboratory Results 07/29/20 04:58 07/29/20 04:58
[2020-07-29] MEDS: INSULIN GLARGINE SOLOSTAR 100 UNITS/ML 3 ML PEN SC SCH (09:44)
--- NOTE | 2020-07-29 10:10 | Electrocardiogram Report ---
Test Reason : Blood Pressure : / mmHG Vent. Rate : 132 BPM Atrial Rate : 159 BPM P-R Int : 160 ms QRS Dur : 082 ms QT Int : 320 ms P-R-T Axes : 000 -38 107 degrees QTc Int : 474 ms Poor data quality, interpretation may be adversely affected Sinus tachycardia Runs of an atrial tachycardia Left axis deviation Inferior infarct (cited on or before 21-JUL-2020) Abnormal ECG When compared with ECG of 24-JUL-2020 11:52, Inverted T waves have replaced nonspecific T wave abnormality in Lateral leads Confirmed by Zachary Velez ([id number]) on 07/29/2020 10:09:26 AM Referred By: REFERRED SELF Confirmed By:Zachary Velez
--- NOTE | 2020-07-29 10:20 | Pharmacy Report ---
Pharmacy Glycemic Short Note 2 - Date of Service July 29, 2020 - Glycemic Short BSG Results (Last 24 hours): 07/28/20 07/28/20 07/28/20 11:26 16:33 20:21 Glucose POC Glucose 156 H 136 H 203 H 07/29/20 07/29/20 04:58 07:29 Glucose 93 POC Glucose 107 H OUTPATIENT ANTIDIABETIC REGIMEN: * Glyburide 2.5mg daily * Repaglinide 2mg prior to meals * Pioglitazone 45mg daily * Sitagliptin 50mg Q AM * A1c = 10.2% 07/22/20 ASSESSMENT: 07/29 * 79 units SQ administered over last 24 hrs, patient consumed 2 of 3 meals yesterday * Fasting BSG 93-107 this AM with 40 units Lantus on board. Received call from RN this morning stating the patient will not be able to eat breakfast due to BiPAP dependence and suspicion patient will not be able to tolerate other meals later today if no change in clinical status. Reduced dose Lantus 20% as a precaution. May give additional Lantus later if patient able to eat. * Post-prandial BSGs controlled 2 of 3 yesterday. HS BSG elevation may have been due to using lesser prandial insulin dose w/ dinner yesterday. Will increase dinner prandial dose. 07/28 * Over the last 24 hr, 137 units of SQ insulin have been administered while patient is tolerating a diet * Fasting BSG 66-85 this AM with 65 units Lantus on board and no correctional insulin administered last evening - will titrate down * Post-prandial BSGs better controlled yesterday using more aggressive carb coverage - however given BSG pattern will use this larger prandial insulin dose with breakfast and lunch only and utilize smaller dose with evening meal 07/27 * Over the last 24 hrs, 134 units SQ insulin have been administered while patient is tolerating a diet * Dexamethasone 6mg IV Q AM continues (Day 7) * Fasting BSG 140-175 this AM with 55 units basal on board and after receiving 9 units correctional insulin HS - will continue to up titrate * Post-prandial BSGs elevated x 3 yesterday, however primary deficiency appeared to be more basal than prandial given lack of climbing BSGs following meals. Will make small adjustment to prandial insulin dose today as basal dose is also being increased. 07/26 * Over the last 24 hrs, 89 units SQ insulin have been administered while patient is tolerating a diet * Dexamethasone 6mg IV Q AM continues (Day 6) * Fasting BSG elevated this AM (FBS 214) w/ 45 units basal on board - will continue to up titrate * Post-prandial BSGs elevated x 3 yesterday - will continue to up titrate prandial insulin doses PLAN FOR INPATIENT GLYCEMIC CONTROL: * Hold outpatient oral diabetes medications * Basal insulin * Lantus Q AM per scale: 32 units if BSG less than 110; 45 units if BSG greater than 110 * Bolus insulin * NovoLog per scale ACHS or Q6hrs while NPO * Goal Range: Low 110 mg/dL - High 140 mg/dL * Correction Factor: 12 mg/dL/unit breakfast, lunch, and dinner; 25mg/dL/unit at HS * Nutritional / Prandial insulin per carb ratio of 1 unit per 2.5 grams CHO consumed w/ breakfast, lunch, and dinner; 1 unit per 8gm CHO consumed at HS PLAN FOR DISCHARGE: * to be determined
[2020-07-29 18:36] LABS: Appearance Urine Clear (Clear); Bilirubin Urine Negative (Negative); Blood Urine Negative (Negative); Color Urine Yellow; Glucose Urine UA Negative (Negative); Ketones Urine Negative (Negative); Leukocyte Esterase Urine Negative (Negative); Nitrite Urine Negative (Negative); Protein Urine Negative (Negative); Specific Gravity Urine 1.018 (1.000-1.030); Urobilinogen Urine Negative (Negative)
[2020-07-29] MEDS: ATORVASTATIN 20 MG TAB PO SCH (20:45)
--- NOTE | 2020-07-29 20:47 | Hospitalist Progress Note ---
Date of Service July 29, 2020 Assessment & Plan (1) Acute respiratory failure with hypoxia: O2 sats as low as 85% on 15 L NRFM day of admission. Acute respiratory failure due to COVID pneumonia. Requiring BiPAP alternating with high flow nasal O2 40 LPM. D-dimer elevated. Must consider possibility of pulmonary thromboembolism or pulmonary artery thrombotic disease. Started empirically on therapeutic SQ enoxaparin. Diagnostic imaging not obtained due to COVID precautions. Diurese as tolerated to optimize pulmonary status. Continue supplemental O2 / BiPAP as necessary. (2) Pneumonia due to COVID-19 virus: Chest x-ray demonstrated bilateral interstitial infiltrates consistent with COVID pneumonia. Specific therapies as discussed below. (3) COVID-19: Ill since ~ 07/16. SARS-CoV-2 done at retail pharmacy on 07/18 was positive. Associated malaise, cough, SOB, GI symptoms. COVID labs: lymphocytes 1520 >> 6110 CRP 2.35 > 2.57 > 6.95 procalcitonin 0.15 ferritin 2518 > 1802 troponin 0.02 D-dimer 6760 > 2780 COVID therapies: Receiving IV dexamethasone- today = day # 7/10 Received 5 day course of remdesivir. Will not extend course to 10 days because: unlikely to offer clinical benefit elevated LFT's Unlikely that convalescent plasma will offer benefit given duration of illness. (4) Acute kidney injury: CKD III with baseline creatinine around 1.5. Creatinine at time of admission 2.47. Acute kidney injury secondary to COVID and associated problems. Nephrology consulted. Valsartan and HCTZ held. Diuresing as tolerated to optimize cardiopulmonary status. Creatinine today = 1.68. Follow. (5) Hypertension: Hypertension usually managed with valsartan + HCTZ- held due to KADEN. Started low dose metoprolol because of SVT, but developed hypotension and metoprolol was stopped. Follow. (6) CKD (chronic kidney disease), stage III: CKD III with baseline creatinine around 1.5. Underlying DM and hypertension. KADEN as discussed above. 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 Usually managed with oral agents. Hgb A1c 10.2. Worsening glycemic control due to steroid therapy. Pharmacy consulted for glycemic management. Lantus / NovoLog per protocol. FBS today = 107. (8) DVT prophylaxis: Receiving SQ enoxaparin. (9) Discharge planning issues: Discharge disposition to be determined. Internal Medicine follow-up with Dr. Barfield. Admission and Anticipated Discharge Date Admission Date: July 21, 2020 Subjective Recheck for COVID-19 and other problems. Patient seen in their room around 1110. Still requiring BiPAP alternating with high flow nasal O2 @ 40 LPM. O2 desaturations noted with minimal exertion. Rare nonproductive cough. Fatigued. No fever. Review of Systems: Constitutional- as noted above. Cardiac- no chest pain. Pulmonary- as noted above. GI- no nausea, vomiting, diarrhea, melena, hematochezia. - Reddy cath. Otherwise, as noted above. Physical Exam Constitutional: + ill appearing; no acute distress Respiratory: no respiratory distress Auscultation: + rales (fine) Cardiovascular: Rate/Rhythm: regular rate and regular rhythm Vessels: no JVD Extremities: no calf tenderness and no edema Gastrointestinal (Abdomen): normal bowel sounds, soft, nontender, no hepatosplenomegaly Musculoskeletal: Extremities: no cyanosis Skin: no rashes, warm and dry Psychiatric: Orientation: alert and oriented x 3 Results & Data Results & Data ([facility]) Vital Signs (Past 12 Hours) Vital Signs Temp Pulse Pulse Pulse Resp BP BP 07/29/20 19:42 36.5 C 106 H 19 93/71 L 07/29/20 19:40 100 H 24 07/29/20 19:15 109 H 20 07/29/20 15:45 103 H 28 H 07/29/20 15:41 36.6 C 109 H 27 H 107/66 07/29/20 13:13 110 H 28 H 07/29/20 12:09 36.4 C L 111 H 24 134/73 07/29/20 11:00 07/29/20 10:49 118 H 23 Pulse Ox Pulse Ox 07/29/20 19:42 92 07/29/20 19:40 92 07/29/20 19:15 86 L 07/29/20 15:45 92 07/29/20 15:41 91 07/29/20 13:13 95 07/29/20 12:09 93 07/29/20 11:00 93 07/29/20 10:49 90 Laboratory Results Laboratory Results - last 24 hr 07/29/20 07/29/20 07/29/20 04:58 04:58 07:29 WBC 19.96 H RBC 5.21 Hgb 15.4 Hct 46.8 MCV 89.8 MCH 29.6 MCHC 32.9 RDW Std Deviation 47.2 H RDW Coeff of Lesia 14.5 Plt Count 336 MPV 11.4 H Sodium 142 Potassium 4.1 Chloride 109 H Carbon Dioxide 25 Anion Gap 9.0 BUN 77 H Creatinine 1.68 H Est Cr Clr Drug Dosing 42.8 Est GFR ( Amer) 44.7 Est GFR (Non-Af Amer) 38.6 BUN/Creatinine Ratio 45.9 H Glucose 93 POC Glucose 107 H Calcium 9.5 Total Bilirubin 0.5 Direct Bilirubin 0.1 AST 51 H ALT 80 H Alkaline Phosphatase 109 C-Reactive Protein 6.95 H Total Protein 6.9 Albumin 2.1 L Globulin 4.8 H Albumin/Globulin Ratio 0.4 L Urine Color Urine Appearance Urine pH Ur Specific Peck Urine Protein Urine Glucose (UA) Urine Ketones Urine Blood Urine Nitrite Urine Bilirubin Urine Urobilinogen Ur Leukocyte Esterase 07/29/20 07/29/20 07/29/20 12:12 16:38 18:15 WBC RBC Hgb Hct MCV MCH MCHC RDW Std Deviation RDW Coeff of Lesia Plt Count MPV Sodium Potassium Chloride Carbon Dioxide Anion Gap BUN Creatinine Est Cr Clr Drug Dosing Est GFR ( Amer) Est GFR (Non-Af Amer) BUN/Creatinine Ratio Glucose POC Glucose 132 H 183 H Calcium Total Bilirubin Direct Bilirubin AST ALT Alkaline Phosphatase C-Reactive Protein Total Protein Albumin Globulin Albumin/Globulin Ratio Urine Color Yellow Urine Appearance Clear Urine pH 5.0 Ur Specific Peck 1.018 Urine Protein Negative Urine Glucose (UA) Negative Urine Ketones Negative Urine Blood Negative Urine Nitrite Negative Urine Bilirubin Negative Urine Urobilinogen Negative Ur Leukocyte Esterase Negative 07/29/20 20:04 WBC RBC Hgb Hct MCV MCH MCHC RDW Std Deviation RDW Coeff of Lesia Plt Count MPV Sodium Potassium Chloride Carbon Dioxide Anion Gap BUN Creatinine Est Cr Clr Drug Dosing Est GFR ( Amer) Est GFR (Non-Af Amer) BUN/Creatinine Ratio Glucose POC Glucose 156 H Calcium Total Bilirubin Direct Bilirubin AST ALT Alkaline Phosphatase C-Reactive Protein Total Protein Albumin Globulin Albumin/Globulin Ratio Urine Color Urine Appearance Urine pH Ur Specific Peck Urine Protein Urine Glucose (UA) Urine Ketones Urine Blood Urine Nitrite Urine Bilirubin Urine Urobilinogen Ur Leukocyte Esterase
[2020-07-29] MEDS: ALBUTEROL 0.083% NEBU SOLN 3 ML VIAL NEB PRN (23:45)
[2020-07-30] MEDS: FUROSEMIDE 30 MG in SYRINGE 0 ML IV SCH ×4 (00:03→17:25)
[2020-07-30] MEDS: LEVALBUTEROL TARTRATE 15 GM HFA.AER.AD INH SCH ×2 (00:53→07:29)
[2020-07-30 08:24] LABS: BUN Creatinine Ratio 45.4 (10-20); Calcium 10.1 mg/dl (8.5-10.1); Creatinine Clr Calc Pharmacy 38.1 ml/min; Est GFR (African American) 38.8; Est GFR (Non-African American) 33.5
[2020-07-30] MEDS: INSULIN ASPART 100 UNITS/ML 3 ML PEN SC SCH ×4 (09:00→20:53)
[2020-07-30] MEDS: ENOXAPARIN 100 MG/1ML SYR SQ SCH ×2 (09:00→20:52)
[2020-07-30] MEDS: FAMOTIDINE 10 MG TABLET PO SCH ×2 (09:00→19:16)
[2020-07-30] MEDS: ASCORBIC ACID 500 MG TAB PO SCH (09:00)
[2020-07-30] MEDS: ZINC SULFATE 220 MG CAPSULE PO SCH (09:00)
[2020-07-30] MEDS ORDERED: MULTIVITAMIN TAB PO SCH (09:00)
[2020-07-30] MEDS: DEXAMETHASONE SOD PHOSPHATE 6 MG in SYRINGE 0 ML IV SCH (09:00)
[2020-07-30] MEDS: INSULIN GLARGINE SOLOSTAR 100 UNITS/ML 3 ML PEN SC SCH (09:53)
--- NOTE | 2020-07-30 13:54 | Nephrology Progress Note ---
Date of Service July 30, 2020 Assessment & Plan (1) CKD (chronic kidney disease), stage III: -baseline creatinine mid ones; creatiine with upward bump today to 1.9 from 1.6; KADEN from admission (presenting creat 2.5) resolved w/in 72 hrs admission; chemistries acceptable though K on higher side; BUN upcreep likely combined from steroids and diuresis -daily bmp >chnaged MVI to renal vitamin d/t K (2) Acute respiratory failure with hypoxia: -per hospitalist and pulmonary -as of this am, he is approximately 4.5L negative past 72 hrs. ->>lowered lasix to 30 mg bid17 iv > pt remains with borderline respiratory status and per pulmonary eval 07/26 intubation not likely to augment outcomes in his current care if it were to be needed Care coordinated w/ Dr Wesley Admission and Anticipated Discharge Date Admission Date: July 21, 2020 Subjective remains on bipap; 1.8 L negative yesterday Review of Systems Review of Systems: Other (unable to speak w/ pt by phone on bipap) Physical Exam Physical Exam: PE deferred d/t need to preserve PPE and minimize staff Covid exposure; pls refer to hospitalist note for today Results & Data ([facility]) Vital Signs (Past 12 Hours) Vital Signs Temp Pulse Pulse Pulse Resp BP Pulse Ox 07/30/20 11:14 100 H 15 95 07/30/20 08:26 36.4 C L 111 H 22 110/71 91 07/30/20 08:00 100 H 07/30/20 07:32 107 H 22 91 07/30/20 07:30 126 H 22 93 07/30/20 03:34 93 H 14 93 07/30/20 03:18 36.5 C 102 H 16 116/70 96 Laboratory Results 07/29/20 04:58 07/30/20 05:38
[2020-07-30] MEDS: CLOTRIMAZOLE 10 MG TROCHE BUCCAL SCH ×4 (17:24→22:04)
--- NOTE | 2020-07-30 19:02 | Hospitalist Progress Note ---
Date of Service July 30, 2020 Assessment & Plan (1) Acute respiratory failure with hypoxia: O2 sats as low as 85% on 15 L NRFM day of admission. Acute respiratory failure due to COVID pneumonia. Requiring BiPAP alternating with high flow nasal O2 40 LPM. D-dimer elevated. Must consider possibility of pulmonary thromboembolism or pulmonary artery thrombotic disease. Started empirically on therapeutic SQ enoxaparin. Diagnostic imaging not obtained due to COVID precautions. Diurese as tolerated to optimize pulmonary status. Continue supplemental O2 / BiPAP as necessary. (2) Pneumonia due to COVID-19 virus: Chest x-ray demonstrated bilateral interstitial infiltrates consistent with COVID pneumonia. Received course of azithromycin and ceftriaxone for possible concomitant bacterial infection. COVID-specific therapies as discussed below. (3) COVID-19: Ill since ~ 07/16. SARS-CoV-2 done at retail pharmacy on 07/18 was positive. Associated malaise, cough, SOB, GI symptoms. COVID labs: lymphocytes 1520 >> 6110 CRP 2.35 > 2.57 > 6.95 procalcitonin 0.15 ferritin 2518 > 1802 troponin 0.02 D-dimer 6760 > 2780 COVID therapies: Receiving IV dexamethasone- today = day # 8/10 Received 5 day course of remdesivir. Will not extend course to 10 days because: unlikely to offer clinical benefit elevated LFT's Unlikely that convalescent plasma will offer benefit given duration of illness. (4) Acute kidney injury: CKD III with baseline creatinine around 1.5. Creatinine at time of admission 2.47. Acute kidney injury secondary to COVID and associated problems. Nephrology consulted. Valsartan and HCTZ held. Diuresing as tolerated to optimize cardiopulmonary status. Creatinine today = 1.89. Follow. (5) Hypertension: Hypertension usually managed with valsartan + HCTZ- held due to KADEN. Started low dose metoprolol because of SVT, but developed hypotension and metop rolol was stopped. Follow. (6) CKD (chronic kidney disease), stage III: CKD III with baseline creatinine around 1.5. Underlying DM and hypertension. KADEN as discussed above. 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 Usually managed with oral agents. Hgb A1c 10.2. Worsening glycemic control due to steroid therapy. Pharmacy consulted for glycemic management. Lantus / NovoLog per protocol. FBS today = 160. (8) Leukocytosis: WBC 19,960. No fever. UA negative yesterday. No diarrhea. Leukocytosis may be secondary to dexamethasone. Follow. (9) Malnutrition: Anorexia with poor PO intake. Seems to have anosmia / dysgeusia secondary to COVID-19. Seen by tooth cutter contact wheel. Supplements as tolerated. [place] diet. MVI. (10) DVT prophylaxis: Receiving SQ enoxaparin. (11) Discharge planning issues: Discharge disposition to be determined. Internal Medicine follow-up with Dr. Barfield. Venancio Moser given update by phone this afternoon. Admission and Anticipated Discharge Date Admission Date: July 21, 2020 Subjective Recheck for COVID-19 and other problems. Patient seen in their room around 1120. Continues to require BiPAP most of the time. Poor appetite. Mouth dry. Rare nonproductive cough. Fatigued. No fever. Reddy removed yesterday. Having difficulty using urinal in bed. Review of Systems: Constitutional- as noted above. Cardiac- no chest pain. Pulmonary- as noted above. GI- no nausea, vomiting, diarrhea, melena, hematochezia. - as noted above. Otherwise, as noted above. Physical Exam Constitutional: + ill appearing; no acute distress Eyes: + anicteric sclerae Respiratory: no respiratory distress Auscultation: + rales (fine) Cardiovascular: Rate/Rhythm: regular rate and regular rhythm Vessels: no JVD Extremities: no calf tenderness and no edema Gastrointestinal (Abdomen): normal bowel sounds, soft, nontender, no hepatosplenomegaly Musculoskeletal: Extremities: no cyanosis Skin: no rashes, warm and dry Psychiatric: Orientation: alert and oriented x 3 Results & Data Results & Data ([facility]) Vital Signs (Past 12 Hours) Vital Signs Temp Pulse Pulse Pulse Resp BP BP 07/30/20 18:53 36.8 C 110 H 21 120/68 07/30/20 16:00 109 H 07/30/20 15:25 106 H 18 07/30/20 15:16 36.7 C 110 H 21 90/54 L 07/30/20 15:03 112 H 18 07/30/20 11:14 100 H 15 07/30/20 08:26 36.4 C L 111 H 22 110/71 07/30/20 08:00 100 H 07/30/20 07:32 107 H 22 07/30/20 07:30 126 H 22 Pulse Ox 07/30/20 18:53 85 L 07/30/20 16:00 07/30/20 15:25 88 L 07/30/20 15:16 90 07/30/20 15:03 90 07/30/20 11:14 95 07/30/20 08:26 91 07/30/20 08:00 07/30/20 07:32 91 07/30/20 07:30 93 Laboratory Results Laboratory Results - last 24 hr 07/29/20 07/30/20 07/30/20 20:04 05:38 07:17 Sodium 142 Potassium 5.0 D Chloride 106 Carbon Dioxide 27 Anion Gap 9.0 BUN 86 H Creatinine 1.89 H Est Cr Clr Drug Dosing 38.1 Est GFR ( Amer) 38.8 Est GFR (Non-Af Amer) 33.5 BUN/Creatinine Ratio 45.4 H Glucose 135 H POC Glucose 156 H 160 H Calcium 10.1 07/30/20 07/30/20 11:03 16:36 Sodium Potassium Chloride Carbon Dioxide Anion Gap BUN Creatinine Est Cr Clr Drug Dosing Est GFR ( Amer) Est GFR (Non-Af Amer) BUN/Creatinine Ratio Glucose POC Glucose 217 H 265 H Calcium
[2020-07-30] MEDS: ATORVASTATIN 20 MG TAB PO SCH (19:16)
[2020-07-31 07:31] LABS: Hematocrit (blood only) 50.3 % (42-52); Hemoglobin 16.5 g/dL (14.0-18.0); Mean Corpuscular Hemoglobin 29.8 pg (25-34); Mean Corpuscular Hgb Conc 32.8 g/dL (32-36); Mean Platelet Volume 11.6 fL (7.4-10.4); Platelet Count 411 K/uL (130-400); RDW Coefficient of Variation 14.6 % (11.5-14.5); RDW Standard Deviation 48.5 fL (36.4-46.3); Red Blood Count 5.53 M/uL (4.7-6.1); White Blood Count 27.23 K/uL (4.8-10.8)
[2020-07-31 08:01] LABS: Albumin Level 2.2 gm/dl (3.4-5.0); BUN Creatinine Ratio 52.7 (10-20); Bilirubin Direct 0.2 mg/dl (0-0.2); C Reactive Protein 3.86 mg/dl (0-0.29); Calcium 9.6 mg/dl (8.5-10.1); Creatinine Clr Calc Pharmacy 39.3 ml/min; Est GFR (African American) 40.3; Est GFR (Non-African American) 34.8
[2020-07-31 08:04] LABS: Albumin Globulin Ratio 0.4 (0.9-2); Bilirubin,Total 0.6 mg/dl (0.2-1); Ferritin 2424.8 ng/ml (8-388); Globulin 5.4 gm/dl (2.5-4.0); Total Protein 7.6 gm/dl (6.4-8.2)
[2020-07-31 08:20] LABS: Basophils # (auto) 0.01 K/uL (0-0.2); Immature Granulocytes # (auto) 0.17 K/uL (0.00-0.02); Immature Granulocytes % (auto) 0.6 %; Lymphocytes # (auto) 11.67 K/uL (1.2-3.4); Lymphocytes % (auto) 42.9 %; Monocytes # (auto) 0.44 K/uL (0.11-0.59); Monocytes % (auto) 1.6 %; Neutrophils # (auto) 14.94 K/uL (1.4-6.5); Neutrophils % (auto) 54.9 %
[2020-07-31] MEDS: TAMSULOSIN HCL 0.4 MG CAP PO SCH ×2 (08:36→08:59)
[2020-07-31] MEDS: ZINC SULFATE 220 MG CAPSULE PO SCH (08:37)
[2020-07-31] MEDS: ASCORBIC ACID 500 MG TAB PO SCH (08:37)
[2020-07-31] MEDS: FAMOTIDINE 10 MG TABLET PO SCH ×2 (08:37→19:35)
[2020-07-31] MEDS: FUROSEMIDE 30 MG in SYRINGE 0 ML IV SCH ×2 (08:37→17:38)
[2020-07-31] MEDS: NEPHROCAPS PO SCH (08:38)
[2020-07-31] MEDS: ENOXAPARIN 100 MG/1ML SYR SQ SCH ×2 (08:39→21:16)
[2020-07-31] MEDS: CLOTRIMAZOLE 10 MG TROCHE BUCCAL SCH ×5 (08:39→22:18)
[2020-07-31] MEDS: INSULIN ASPART 100 UNITS/ML 3 ML PEN SC SCH ×4 (08:57→21:14)
--- NOTE | 2020-07-31 09:14 | XRay Report ---
KUB CLINICAL HISTORY: Covid. Urinary retention. FINDINGS: 2 AP supine abdominal radiographs are obtained. No prior studies are available for comparis on at the time of dictation. There is a nonobstructed abdominal bowel gas pattern. No evidence of int raperitoneal free air is seen on these supine images. There are no abnormal abdominal calcifications. The skeletal structures are osteopenic and appear intact. Degenerative change is noted in the lumbar spine. IMPRESSION: Nonobstructed abdominal bowel gas pattern. Electronically signed by: Robin Crisostomo M.D. 07/31/2020 9:13 AM
--- NOTE | 2020-07-31 09:44 | XRay Report ---
SINGLE VIEW CHEST CLINICAL HISTORY: Covid pneumonia. FINDINGS: An AP, portable, upright chest radiograph is compared to study dated 07/27/2020. The examin ation is degraded by portable technique and patient rotation. The heart is enlarged noting atheroscle rotic calcification of the thoracic aorta. The pulmonary vasculature is noncongested. Diffuse coarsen ing of interstitium is again noted, as is left greater than right bibasilar airspace consolidation. A small Left pleural effusion is suspected. No pneumothorax is seen. The skeletal structures are osteo penic. The bony thorax is grossly intact. IMPRESSION: 1. Interstitial thickening and bibasilar consolidation is again noted. These findings are similar to the 07/27/2020 examination. 2. Suspect a small left pleural effusion. 3. Cardiac enlargement without radiographic evidence of congestive failure. ACT 112: Negative or not required by law. Electronically signed by: Robin Crisostomo M.D. 07/31/2020 9:43 AM
[2020-07-31 11:44] LABS: Appearance Urine Clear (Clear); Bilirubin Urine Negative (Negative); Blood Urine Negative (Negative); Color Urine Yellow; Glucose Urine UA Negative (Negative); Ketones Urine Negative (Negative); Leukocyte Esterase Urine Negative (Negative); Nitrite Urine Negative (Negative); Protein Urine Negative (Negative); Specific Gravity Urine 1.017 (1.000-1.030); Urobilinogen Urine Negative (Negative)
[2020-07-31] MEDS ORDERED: INSULIN GLARGINE SOLOSTAR 100 UNITS/ML 3 ML PEN SC ONE (12:00)
--- NOTE | 2020-07-31 14:39 | Pharmacy Report ---
Pharmacy Glycemic Short Note 2 - Date of Service July 31, 2020 - Glycemic Short BSG Results (Last 24 hours): 07/30/20 07/30/20 07/31/20 16:36 20:22 05:56 Glucose 47 L* POC Glucose 265 H 193 H 07/31/20 07/31/20 07:40 11:08 Glucose POC Glucose 70 216 H OUTPATIENT ANTIDIABETIC REGIMEN: * Glyburide 2.5mg daily * Repaglinide 2mg prior to meals * Pioglitazone 45mg daily * Sitagliptin 50mg Q AM * A1c = 10.2% 07/22/20 ASSESSMENT: 07/31 * 76 units SQ administered over last 24 hrs * Patient completed 10 days of IV Dexamethasone yesterday, loosen CF/CR * BSG 47mg/dl this morning, held AM Lantus, but then resumed at lunchtime at reduced dose * Consider changing Lantus to NPH if AM hypoglycemia persists 07/29 * 79 units SQ administered over last 24 hrs, patient consumed 2 of 3 meals yesterday * Fasting BSG 93-107 this AM with 40 units Lantus on board. Received call from RN this morning stating the patient will not be able to eat breakfast due to BiPAP dependence and suspicion patient will not be able to tolerate other meals later today if no change in clinical status. Reduced dose Lantus 20% as a precaution. May give additional Lantus later if patient able to eat. * Post-prandial BSGs controlled 2 of 3 yesterday. HS BSG elevation may have been due to using lesser prandial insulin dose w/ dinner yesterday. Will increase dinner prandial dose. 07/28 * Over the last 24 hr, 137 units of SQ insulin have been administered while patient is tolerating a diet * Fasting BSG 66-85 this AM with 65 units Lantus on board and no correctional insulin administered last evening - will titrate down * Post-prandial BSGs better controlled yesterday using more aggressive carb coverage - however given BSG pattern will use this larger prandial insulin dose with breakfast and lunch only and utilize smaller dose with evening meal 07/27 * Over the last 24 hrs, 134 units SQ insulin have been administered while patient is tolerating a diet * Dexamethasone 6mg IV Q AM continues (Day 7) * Fasting BSG 140-175 this AM with 55 units basal on board and after receiving 9 units correctional insulin HS - will continue to up titrate * Post-prandial BSGs elevated x 3 yesterday, however primary deficiency appeared to be more basal than prandial given lack of climbing BSGs following meals. Will make small adjustment to prandial insulin dose today as basal dose is also being increased. 07/26 * Over the last 24 hrs, 89 units SQ insulin have been administered while patient is tolerating a diet * Dexamethasone 6mg IV Q AM continues (Day 6) * Fasting BSG elevated this AM (FBS 214) w/ 45 units basal on board - will continue to up titrate * Post-prandial BSGs elevated x 3 yesterday - will continue to up titrate prandial insulin doses PLAN FOR INPATIENT GLYCEMIC CONTROL: * Hold outpatient oral diabetes medications * Basal insulin- decrease * Lantus Q AM per scale: 30 units if BSG less than 110; 40 units if BSG greater than 110 * Bolus insulin * NovoLog per scale ACHS or Q6hrs while NPO * Goal Range: Low 110 mg/dL - High 140 mg/dL * loosen: Correction Factor: 15 mg/dL/unit breakfast, lunch, and dinner; 25mg/dL/unit at HS * loosen: Nutritional / Prandial insulin per carb ratio of 1 unit per 5 grams CHO consumed w/ breakfast, lunch, and dinner; 1 unit per 8gm CHO consumed at HS PLAN FOR DISCHARGE: * to be determined
--- NOTE | 2020-07-31 16:03 | Hospitalist Progress Note ---
Date of Service July 31, 2020 Assessment & Plan (1) Acute respiratory failure with hypoxia: O2 sats as low as 85% on 15 L NRFM day of admission. Acute respiratory failure due to COVID pneumonia. Requiring BiPAP alternating with high flow nasal O2 40 LPM. D-dimer elevated. Must consider possibility of pulmonary thromboembolism or pulmonary artery thrombotic disease. Started empirically on therapeutic SQ enoxaparin. Diagnostic imaging not obtained due to COVID precautions. Diurese as tolerated to optimize pulmonary status. Continue supplemental O2 / BiPAP as necessary. (2) Pneumonia due to COVID-19 virus: Chest x-ray demonstrated bilateral interstitial infiltrates consistent with COVID pneumonia. Received course of azithromycin and ceftriaxone for possible concomitant bacterial infection. COVID-specific therapies as discussed below. (3) COVID-19: Ill since ~ 07/16. SARS-CoV-2 done at retail pharmacy on 07/18 was positive. Associated malaise, cough, SOB, GI symptoms. COVID labs: lymphocytes 1520 >> 6110 > 11,670 CRP 2.35 > 2.57 > 6.95 > 3.86 procalcitonin 0.15 ferritin 2518 > 1802 > 2424 troponin 0.02 D-dimer 6760 > 2780 COVID therapies: Receiving IV dexamethasone- today = day # 8/10 Received 5 day course of remdesivir. Will not extend course to 10 days because: unlikely to offer clinical benefit elevated LFT's Unlikely that convalescent plasma will offer benefit given duration of illness. (4) Acute kidney injury: CKD III with baseline creatinine around 1.5. Creatinine at time of admission 2.47. Acute kidney injury secondary to COVID and associated problems. Nephrology consulted. Valsartan and HCTZ held. Diuresing as tolerated to optimize cardiopulmonary status. Creatinine today = 1.83. Follow. (5) Hypertension: Hypertension usually managed with valsartan + HCTZ- held due to KADEN. Started low dose metoprolol because of SVT, but developed hypotension and metoprolol was stopped. Follow. (6) CKD (chronic kidney disease), stage III: CKD III with baseline creatinine around 1.5. Underlying DM and hypertension. KADEN as discussed above. 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 Usually managed with oral agents. Hgb A1c 10.2. Worsening glycemic control due to steroid therapy. Pharmacy consulted for glycemic management. Lantus / NovoLog per protocol. FBS today = 24 per venipuncture and 70 per fingerstick blood sugar. (8) Leukocytosis: WBC 19,960 > 27,230. No fever. UA negative. No diarrhea. Chest x-ray unchanged. No acute process on KUB. Procalcitonin not elevated. Check blood cultures. Leukocytosis may be secondary to dexamethasone. Follow. (9) Malnutrition: Anorexia with poor PO intake. Seems to have anosmia / dysgeusia secondary to COVID-19. 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 Supplements as tolerated. [place] diet. MVI. (10) Urinary retention: Urinary retention noted upon presentation to ED. Reddy cath placed and remained in place for several days. Voiding trial 07/29 - 07/31 not successful. Reddy reinserted. Hold tamsulosin at this time due to relatively low BP's. (11) DVT prophylaxis: Receiving SQ enoxaparin. (12) Discharge planning issues: Discharge disposition to be determined. May need skilled care or rehab. Internal Medicine follow-up with Dr. Barfield. Son Ehsan given update by phone this afternoon. Admission and Anticipated Discharge Date Admission Date: July 21, 2020 Subjective Recheck for COVID-19 and other problems. Patient seen in their room around 1030. Has been off BiPAP for a while; more comfortable with high flow nasal oxygen. No fever. No significant cough. Mouth still dry / sore. Unable to void using urinal or bedside commode. Nursing reports that he had significant urinary retention in ED at time of admission. Review of Systems: Constitutional- as noted above. Cardiac- no chest pain. Pulmonary- as noted above. GI- no nausea, vomiting, diarrhea, melena, hematochezia. - as noted above. Otherwise, as noted above. Physical Exam Constitutional: + ill appearing; no acute distress Eyes: + anicteric sclerae ENMT: Mouth: + tongue abnormality (erythematous, dry) Respiratory: no respiratory distress Auscultation: + rales (fine) Cardiovascular: Rate/Rhythm: regular rate and regular rhythm Vessels: no JVD Extremities: no calf tenderness and no edema Gastrointestinal (Abdomen): normal bowel sounds, soft, nontender, no hepatosplenomegaly Musculoskeletal: Extremities: no cyanosis Skin: no rashes, warm and dry Psychiatric: Orientation: alert and oriented x 3 Results & Data Results & Data ([facility]) Vital Signs (Past 12 Hours) Vital Signs Temp Pulse Pulse Pulse Resp BP BP 07/31/20 15:05 36.8 C 114 H 21 97/61 L 07/31/20 14:52 112 H 22 07/31/20 11:24 112 H 22 07/31/20 10:55 36.7 C 115 H 20 97/67 L 07/31/20 08:00 104 H 07/31/20 07:37 110 H 20 07/31/20 07:15 36.5 C 111 H 20 111/67 Pulse Ox 07/31/20 15:05 81 L 07/31/20 14:52 91 07/31/20 11:24 90 07/31/20 10:55 88 L 07/31/20 08:00 07/31/20 07:37 92 07/31/20 07:15 88 L Laboratory Results Laboratory Results - last 24 hr 07/30/20 07/30/20 07/31/20 16:36 20:22 05:56 WBC 27.23 H RBC 5.53 Hgb 16.5 Hct 50.3 MCV 91.0 MCH 29.8 MCHC 32.8 RDW Std Deviation 48.5 H RDW Coeff of Lesia 14.6 H Plt Count 411 H MPV 11.6 H Immature Gran % (Auto) 0.6 Neut % (Auto) 54.9 Lymph % (Auto) 42.9 Logan % (Auto) 1.6 Eos % (Auto) 0.0 Baso % (Auto) 0.0 Neut # (Auto) 14.94 H Lymph # (Auto) 11.67 H Logan # (Auto) 0.44 Eos # (Auto) 0.00 Baso # (Auto) 0.01 Immature Gran # (Auto) 0.17 H Blood Smear Review Pending Sodium Potassium Chloride Carbon Dioxide Anion Gap BUN Creatinine Est Cr Clr Drug Dosing Est GFR ( Amer) Est GFR (Non-Af Amer) BUN/Creatinine Ratio Glucose POC Glucose 265 H 193 H Calcium Ferritin Total Bilirubin Direct Bilirubin AST ALT Alkaline Phosphatase C-Reactive Protein Total Protein Albumin Globulin Albumin/Globulin Ratio Procalcitonin Urine Color Urine Appearance Urine pH Ur Specific [place] Urine Protein Urine Glucose (UA) Urine Ketones Urine Blood Urine Nitrite Urine Bilirubin Urine Urobilinogen Ur Leukocyte Esterase 07/31/20 07/31/20 07/31/20 05:56 07:40 10:38 WBC RBC Hgb Hct MCV MCH MCHC RDW Std Deviation RDW Coeff of Lesia Plt Count MPV Immature Gran % (Auto) Neut % (Auto) Lymph % (Auto) Logan % (Auto) Eos % (Auto) Baso % (Auto) Neut # (Auto) Lymph # (Auto) Logan # (Auto) Eos # (Auto) Baso # (Auto) Immature Gran # (Auto) Blood Smear Review Sodium 143 Potassium 4.0 D Chloride 107 Carbon Dioxide 27 Anion Gap 9.0 BUN 96 H Creatinine 1.83 H Est Cr Clr Drug Dosing 39.3 Est GFR ( Amer) 40.3 Est GFR (Non-Af Amer) 34.8 BUN/Creatinine Ratio 52.7 H Glucose 47 L* POC Glucose 70 Calcium 9.6 Ferritin 2424.8 H Total Bilirubin 0.6 Direct Bilirubin 0.2 AST 43 H ALT 75 Alkaline Phosphatase 130 H C-Reactive Protein 3.86 H Total Protein 7.6 Albumin 2.2 L Globulin 5.4 H Albumin/Globulin Ratio 0.4 L Procalcitonin 0.40 Urine Color Urine Appearance Urine pH Ur Specific [place] Urine Protein Urine Glucose (UA) Urine Ketones Urine Blood Urine Nitrite Urine Bilirubin Urine Urobilinogen Ur Leukocyte Esterase 07/31/20 07/31/20 10:40 11:08 WBC RBC Hgb Hct MCV MCH MCHC RDW Std Deviation RDW Coeff of Lesia Plt Count MPV Immature Gran % (Auto) Neut % (Auto) Lymph % (Auto) Logan % (Auto) Eos % (Auto) Baso % (Auto) Neut # (Auto) Lymph # (Auto) Logan # (Auto) Eos # (Auto) Baso # (Auto) Immature Gran # (Auto) Blood Smear Review Sodium Potassium Chloride Carbon Dioxide Anion Gap BUN Creatinine Est Cr Clr Drug Dosing Est GFR ( Amer) Est GFR (Non-Af Amer) BUN/Creatinine Ratio Glucose POC Glucose 216 H Calcium Ferritin Total Bilirubin Direct Bilirubin AST ALT Alkaline Phosphatase C-Reactive Protein Total Protein Albumin Globulin Albumin/Globulin Ratio Procalcitonin Urine Color Yellow Urine Appearance Clear Urine pH 5.0 Ur Specific [place] 1.017 Urine Protein Negative Urine Glucose (UA) Negative Urine Ketones Negative Urine Blood Negative Urine Nitrite Negative Urine Bilirubin Negative Urine Urobilinogen Negative Ur Leukocyte Esterase Negative
[2020-07-31] MEDS: ATORVASTATIN 20 MG TAB PO SCH (19:35)
[2020-08-01 07:20] LABS: BUN Creatinine Ratio 56.4 (10-20); Calcium 9.3 mg/dl (8.5-10.1); Creatinine Clr Calc Pharmacy 36.5 ml/min; Est GFR (African American) 36.9; Est GFR (Non-African American) 31.8; Magnesium 3.2 mg/dl (1.8-2.4); Potassium 4.1 mmol/L (3.5-5.1)
--- NOTE | 2020-08-01 08:59 | Pharmacy Report ---
Pharmacy Glycemic Short Note 2 - Date of Service August 01, 2020 - Glycemic Short BSG Results (Last 24 hours): 07/31/20 07/31/20 07/31/20 11:08 16:38 20:18 Glucose POC Glucose 216 H 145 H 153 H 08/01/20 08/01/20 05:24 07:55 Glucose 83 POC Glucose 129 H OUTPATIENT ANTIDIABETIC REGIMEN: * Glyburide 2.5mg daily * Repaglinide 2mg prior to meals * Pioglitazone 45mg daily * Sitagliptin 50mg Q AM * A1c = 10.2% 07/22/20 ASSESSMENT: 07/31 * 76 units SQ administered over last 24 hrs * Patient completed 10 days of IV Dexamethasone yesterday, loosen CF/CR * BSG 47mg/dl this morning, held AM Lantus, but then resumed at lunchtime at reduced dose * Consider changing Lantus to NPH if AM hypoglycemia persists 08/01 * 41 units SQ insulin given over last 24 hrs. Only 1 meal consumed yesterday. * No longer receiving dexamethasone IV (completed day #10 on 07/30) * Fasting BSG 83-129 with 30 units Lantus on board - will continue to titrate down given poor PO intake * Post-prandial BSG elevated after yesterday's breakfast meal. Patient did not eat lunch or dinner. Difficult to determine if CF/CR need adjusted based upon this info. Will lessen Novolog doses only slightly however given lack of miguel roid administration. Current doses are "severe" stress level based upon weight. 07/29 * 79 units SQ administered over last 24 hrs, patient consumed 2 of 3 meals yesterday * Fasting BSG 93-107 this AM with 40 units Lantus on board. Received call from RN this morning stating the patient will not be able to eat breakfast due to BiPAP dependence and suspicion patient will not be able to tolerate other meals later today if no change in clinical status. Reduced dose Lantus 20% as a precaution. May give additional Lantus later if patient able to eat. * Post-prandial BSGs controlled 2 of 3 yesterday. HS BSG elevation may have been due to using lesser prandial insulin dose w/ dinner yesterday. Will increase dinner prandial dose. 07/28 * Over the last 24 hr, 137 units of SQ insulin have been administered while patient is tolerating a diet * Fasting BSG 66-85 this AM with 65 units Lantus on board and no correctional insulin administered last evening - will titrate down * Post-prandial BSGs better controlled yesterday using more aggressive carb coverage - however given BSG pattern will use this larger prandial insulin dose with breakfast and lunch only and utilize smaller dose with evening meal 07/27 * Over the last 24 hrs, 134 units SQ insulin have been administered while patient is tolerating a diet * Dexamethasone 6mg IV Q AM continues (Day 7) * Fasting BSG 140-175 this AM with 55 units basal on board and after receiving 9 units correctional insulin HS - will continue to up titrate * Post-prandial BSGs elevated x 3 yesterday, however primary deficiency appeared to be more basal than prandial given lack of climbing BSGs following meals. Will make small adjustment to prandial insulin dose today as basal dose is also being increased. 07/26 * Over the last 24 hrs, 89 units SQ insulin have been administered while patient is tolerating a diet * Dexamethasone 6mg IV Q AM continues (Day 6) * Fasting BSG elevated this AM (FBS 214) w/ 45 units basal on board - will continue to up titrate * Post-prandial BSGs elevated x 3 yesterday - will continue to up titrate prandial insulin doses PLAN FOR INPATIENT GLYCEMIC CONTROL: * Hold outpatient oral diabetes medications * Basal insulin- decrease * Lantus Q AM per scale: 20 units if BSG less than 110; 25 units if BSG greater than 110 * Bolus insulin * NovoLog per scale ACHS or Q6hrs while NPO * Goal Range: Low 110 mg/dL - High 140 mg/dL * loosen: Correction Factor: 18 mg/dL/unit breakfast, lunch, and dinner; 25mg/dL/unit at HS * loosen: Nutritional / Prandial insulin per carb ratio of 1 unit per 6 grams CHO consumed w/ breakfast, lunch, and dinner; 1 unit per 8gm CHO consumed at HS PLAN FOR DISCHARGE: * to be determined
[2020-08-01] MEDS: NEPHROCAPS PO SCH (09:13)
[2020-08-01] MEDS: ZINC SULFATE 220 MG CAPSULE PO SCH (09:13)
[2020-08-01] MEDS: CLOTRIMAZOLE 10 MG TROCHE BUCCAL SCH ×4 (09:13→19:47)
[2020-08-01] MEDS: FAMOTIDINE 10 MG TABLET PO SCH ×2 (09:14→19:50)
[2020-08-01] MEDS: ASCORBIC ACID 500 MG TAB PO SCH (09:14)
[2020-08-01] MEDS: ENOXAPARIN 100 MG/1ML SYR SQ SCH ×2 (09:15→21:48)
[2020-08-01] MEDS: INSULIN ASPART 100 UNITS/ML 3 ML PEN SC SCH ×5 (09:31→22:15)
[2020-08-01] MEDS: INSULIN GLARGINE SOLOSTAR 100 UNITS/ML 3 ML PEN SC SCH (09:34)
--- NOTE | 2020-08-01 12:30 | Progress Notes ---
DATE: 08/01/2020 NEPHROLOGY PROGRESS NOTE SUBJECTIVE: The patient continues to be very hypoxic and needing very high oxygen flow, oxygen saturation drops very fast as soon as his oxygen level is turned down. OBJECTIVE: VITAL SIGNS: Blood pressure is 110/76. He has had somewhat low blood pressure at times. Pulse rate 120, temperature 36.4, 95% on 40 liters per minute high-flow nasal cannula. HEENT: Mucous membrane is moist. NECK: Supple. No jugular venous distention noted. CHEST: Bilateral crackles and rhonchi at the bases. Hard to appreciate lung sounds. CARDIOVASCULAR: Regular rate and rhythm. ABDOMEN: Soft, nontender EXTREMITIES: No edema. LABORATORY TESTS: From this morning shows WBC count is rising and is up to 27,000 now, platelet count 411. Sodium 142, potassium 4.1, BUN is up to 111, which is a rise, creatinine is up to 1.97, which is also an increase, magnesium 3.2. Chest x-ray done yesterday shows cardiac enlargement without congestive heart failure, continued interstitial thickening and bibasilar consolidation. ASSESSMENT AND PLAN: A 75-year-old male with COVID-19 positive with multisystem involvement. Acute renal failure: Baseline creatinine is mid 1. At this time, creatinine is about 2, so the acute rise is not that prominent. Electrolytes seem reasonable concerning increase in the white blood cell count as well as persistent extremely high need of oxygen. I am also concerned about the cardiac enlargement. I do want to do a proBNP level tomorrow. Rising proBNP level and cardiac enlargement is not a good prognostic sign and he may also need an echocardiogram depending on the test. For today, we will hold Lasix. We will give Lasix as needed depending on his blood pressure.
--- NOTE | 2020-08-01 19:45 | Hospitalist Progress Note ---
Date of Service August 01, 2020 Assessment & Plan (1) Acute respiratory failure with hypoxia: O2 sats as low as 85% on 15 L NRFM day of admission. Acute respiratory failure due to COVID pneumonia. Management of pneumonia as discussed below. Requiring BiPAP alternating with high flow nasal O2 40 LPM. D-dimer elevated. Must consider possibility of pulmonary thromboembolism or pulmonary artery thrombotic disease. Started empirically on therapeutic SQ enoxaparin. Diagnostic imaging not obtained due to COVID precautions. Diurese as tolerated to optimize pulmonary status. Continue supplemental O2 / BiPAP as necessary. (2) Pneumonia due to COVID-19 virus: Chest x-ray demonstrated bilateral interstitial infiltrates consistent with COVID pneumonia. Received course of azithromycin and ceftriaxone for possible concomitant bacterial infection. COVID-specific therapies as discussed below. (3) COVID-19: Ill since ~ 07/16. SARS-CoV-2 done at retail pharmacy on 07/18 was positive. Associated malaise, cough, SOB, GI symptoms. COVID labs: lymphocytes 1520 >> 6110 > 11,670 CRP 2.35 > 2.57 > 6.95 > 3.86 procalcitonin 0.15 > 0.40 ferritin 2518 > 1802 > 2424 troponin 0.02 D-dimer 6760 > 2780 COVID therapies: Received IV dexamethasone x 10 days. Received remdesivir x 5 days Did not extend course to 10 days because: unlikely to offer clinical benefit elevated LFT's Sharon unlikely that convalescent plasma will offer benefit given duration of illness. (4) Acute kidney injury: CKD III with baseline creatinine around 1.5. Creatinine at time of admission 2.47. Acute kidney injury secondary to COVID and associated problems. Nephrology consulted. Valsartan and HCTZ held. Diuresing as tolerated to optimize cardiopulmonary status. BUN today = 111. Creatinine today = 1.97. Hypotensive and tachycardic. Hold diuretics today. PRN dosing for worsening respiratory status. Follow. (5) Hypertension: Hypertension usually managed with valsartan + HCTZ- held due to KADEN. Started low dose metoprolol because of SVT, but developed hypotension and metoprolol was stopped. Follow. (6) CKD (chronic kidney disease), stage III: CKD III with baseline creatinine around 1.5. Underlying DM and hypertension. KADEN as discussed above. 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 Usually managed with oral agents. Hgb A1c 10.2. Worsening glycemic control due to steroid therapy. Pharmacy consulted for glycemic management. Lantus / NovoLog per protocol. FBS today = 129. (8) Leukocytosis: WBC 19,960 > 27,230. No fever. UA negative. No diarrhea. Chest x-ray unchanged. No acute process on KUB. Procalcitonin not elevated. Checking blood cultures- negative at 24 hours. Leukocytosis may be secondary to dexamethasone. Flow cytometry pending. Follow. (9) Malnutrition: Anorexia with poor PO intake. Seems to have anosmia / dysgeusia secondary to COVID-19. 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 Supplements as tolerated. [place] diet. MVI. (10) Urinary retention: Urinary retention noted upon presentation to ED. Reddy cath placed and remained in place for several days. Voiding trial 07/29 - 07/31 not successful. Reddy reinserted. Hold tamsulosin at this time due to relatively low BP's. (11) DVT prophylaxis: Receiving SQ enoxaparin. (12) Discharge planning issues: Discharge disposition to be determined. May need skilled care or rehab. Internal Medicine follow-up with Dr. Barfield. Son Ehsan given update by phone this afternoon. Admission and Anticipated Discharge Date Admission Date: July 21, 2020 Subjective Recheck for COVID-19 and other problems. Patient seen in their room around 1120. On high flow nasal O2 most of the day yesterday, back on BiPAP last night. Returned to high flow nasal O2 this morning. Had an episode of hypoxia when O2 came off for a while, but recovered and has maintained sats high 80's - low 90's sicne. No fever. Rare cough. Oral discomfort better- able to tolerate PO supplements and chicken soup broth. Review of Systems: Constitutional- as noted above. Cardiac- no chest pain. Pulmonary- as noted above. GI- no nausea, vomiting, diarrhea, melena, hematochezia. - Reddy cath. Otherwise, as noted above. Physical Exam Constitutional: + ill appearing Eyes: + anicteric sclerae ENMT: Mouth: + tongue abnormality (thrush improved) Respiratory: no respiratory distress Auscultation: + rales (fine) Cardiovascular: Rate/Rhythm: regular rate and regular rhythm Vessels: no JVD Extremities: no calf tenderness and no edema Gastrointestinal (Abdomen): normal bowel sounds, soft, nontender, no hepatosplenomegaly Musculoskeletal: Extremities: no cyanosis Skin: no rashes, warm and dry Psychiatric: Orientation: alert and oriented x 3 Results & Data Results & Data ([facility]) Vital Signs (Past 12 Hours) Vital Signs Temp Pulse Pulse Pulse Resp BP BP 08/01/20 16:32 112 H 08/01/20 15:56 36.7 C 118 H 20 120/83 08/01/20 15:29 37.0 C 120 H 20 116/74 08/01/20 14:45 117 H 20 08/01/20 11:56 36.6 C 117 H 21 92/56 L 08/01/20 11:29 122 H 08/01/20 10:55 111 H 20 08/01/20 08:16 36.4 C L 115 H 20 110/76 Pulse Ox 08/01/20 16:32 08/01/20 15:56 88 L 08/01/20 15:29 92 08/01/20 14:45 93 08/01/20 11:56 92 08/01/20 11:29 08/01/20 10:55 95 08/01/20 08:16 94 Laboratory Results Laboratory Results - last 24 hr 07/31/20 07/31/20 07/31/20 05:56 05:56 20:18 Blood Smear Review Sodium Potassium Chloride Carbon Dioxide Anion Gap BUN Creatinine Est Cr Clr Drug Dosing Est GFR ( Amer) Est GFR (Non-Af Amer) BUN/Creatinine Ratio Glucose POC Glucose 153 H Calcium Magnesium Flow Cytometry Comment Pending 08/01/20 08/01/20 08/01/20 05:24 07:55 11:40 Blood Smear Review Sodium 142 Potassium 4.1 Chloride 105 Carbon Dioxide 27 Anion Gap 10.0 BUN 111 H Creatinine 1.97 H Est Cr Clr Drug Dosing 36.5 Est GFR ( Amer) 36.9 Est GFR (Non-Af Amer) 31.8 BUN/Creatinine Ratio 56.4 H Glucose 83 POC Glucose 129 H 210 H Calcium 9.3 Magnesium 3.2 H Flow Cytometry Comment 08/01/20 08/01/20 16:19 16:21 Blood Smear Review Sodium Potassium Chloride Carbon Dioxide Anion Gap BUN Creatinine Est Cr Clr Drug Dosing Est GFR ( Amer) Est GFR (Non-Af Amer) BUN/Creatinine Ratio Glucose POC Glucose 350 H* 337 H* Calcium Magnesium Flow Cytometry Comment
[2020-08-01] MEDS: ATORVASTATIN 20 MG TAB PO SCH (19:51)
[2020-08-01] MEDS ORDERED: LIDOCAINE HCL 5% OINT 30 GM TUBE EXT PRN (21:03)
[2020-08-01] MEDS ORDERED: INSULIN GLARGINE SOLOSTAR 100 UNITS/ML 3 ML PEN SC ONE (22:15)
[2020-08-02] MEDS: CLOTRIMAZOLE 10 MG TROCHE BUCCAL SCH ×5 (00:11→19:36)
[2020-08-02 07:37] LABS: Hematocrit (blood only) 45.3 % (42-52); Hemoglobin 14.9 g/dL (14.0-18.0); Mean Corpuscular Hemoglobin 29.3 pg (25-34); Mean Corpuscular Hgb Conc 32.9 g/dL (32-36); Mean Platelet Volume 11.3 fL (7.4-10.4); Platelet Count 313 K/uL (130-400); RDW Coefficient of Variation 14.2 % (11.5-14.5); RDW Standard Deviation 46.2 fL (36.4-46.3); Red Blood Count 5.09 M/uL (4.7-6.1); White Blood Count 22.67 K/uL (4.8-10.8)
[2020-08-02] MEDS: NEPHROCAPS PO SCH (08:00)
[2020-08-02] MEDS: ASCORBIC ACID 500 MG TAB PO SCH (08:00)
[2020-08-02] MEDS: ZINC SULFATE 220 MG CAPSULE PO SCH (08:01)
[2020-08-02] MEDS: ENOXAPARIN 100 MG/1ML SYR SQ SCH ×2 (08:02→21:30)
[2020-08-02] MEDS: FAMOTIDINE 10 MG TABLET PO SCH ×2 (08:02→21:30)
[2020-08-02] MEDS: INSULIN ASPART 100 UNITS/ML 3 ML PEN SC SCH ×4 (08:04→20:54)
[2020-08-02] MEDS: INSULIN GLARGINE SOLOSTAR 100 UNITS/ML 3 ML PEN SC SCH (08:05)
[2020-08-02 08:06] LABS: BUN Creatinine Ratio 61.3 (10-20); Calcium 9.2 mg/dl (8.5-10.1); Creatinine Clr Calc Pharmacy 41.3 ml/min; Est GFR (African American) 42.9; Potassium 4.6 mmol/L (3.5-5.1)
[2020-08-02 08:11] LABS: Basophils # (auto) 0.01 K/uL (0-0.2); C Reactive Protein 11.5 mg/dl (0-0.29); Eosinophils # (auto) 0.04 K/uL (0-0.5); Eosinophils % (auto) 0.2 %; Immature Granulocytes # (auto) 0.14 K/uL (0.00-0.02); Immature Granulocytes % (auto) 0.6 %; Lymphocytes # (auto) 8.11 K/uL (1.2-3.4); Lymphocytes % (auto) 35.8 %; Monocytes # (auto) 0.65 K/uL (0.11-0.59); Monocytes % (auto) 2.9 %; Neutrophils # (auto) 13.72 K/uL (1.4-6.5); Neutrophils % (auto) 60.5 %
--- NOTE | 2020-08-02 14:08 | Pharmacy Report ---
Pharmacy Glycemic Short Note 2 - Date of Service August 02, 2020 - Glycemic Short BSG Results (Last 24 hours): 08/01/20 08/01/20 08/01/20 16:19 16:21 21:30 Glucose POC Glucose 350 H* 337 H* 369 H* 08/01/20 08/02/20 08/02/20 21:32 07:11 07:47 Glucose 103 H POC Glucose 367 H* 118 H 08/02/20 11:13 Glucose POC Glucose 169 H OUTPATIENT ANTIDIABETIC REGIMEN: * Glyburide 2.5mg daily * Repaglinide 2mg prior to meals * Pioglitazone 45mg daily * Sitagliptin 50mg Q AM * A1c = 10.2% 07/22/20 ASSESSMENT: 08/02: * 82 units SQ administered over the last 24 hours * Patient did experience hyperglycemia yesterday afternoon and evening, but fasting BSG this morning was adequate. An additional 15 units of lantus was administered last evening and novolog scale was tightened in response to the hyperglycemia. I also did switch the diet to a T2DM diet this morning. * Will add a lantus scale for this evening in the event BSGs start to rise again and morning lantus scale will be increased for tomorrow. 07/31 * 76 units SQ administered over last 24 hrs * Patient completed 10 days of IV Dexamethasone yesterday, loosen CF/CR * BSG 47mg/dl this morning, held AM Lantus, but then resumed at lunchtime at reduced dose * Consider changing Lantus to NPH if AM hypoglycemia persists 08/01 * 41 units SQ insulin given over last 24 hrs. Only 1 meal consumed yesterday. * No longer receiving dexamethasone IV (completed day #10 on 07/30) * Fasting BSG 83-129 with 30 units Lantus on board - will continue to titrate down given poor PO intake * Post-prandial BSG elevated after yesterday's breakfast meal. Patient did not eat lunch or dinner. Difficult to determine if CF/CR need adjusted based upon this info. Will lessen Novolog doses only slightly however given lack of steroid administration. Current doses are "severe" stress level based upon weight. 07/29 * 79 units SQ administered over last 24 hrs, patient consumed 2 of 3 meals yesterday * Fasting BSG 93-107 this AM with 40 units Lantus on board. Received call from RN this morning stating the patient will not be able to eat breakfast due to BiPAP dependence and suspicion patient will not be able to tolerate other meals later today if no change in clinical status. Reduced dose Lantus 20% as a precaution. May give additional Lantus later if patient able to eat. * Post-prandial BSGs controlled 2 of 3 yesterday. HS BSG elevation may have been due to using lesser prandial insulin dose w/ dinner yesterday. Will increase dinner prandial dose. 07/28 * Over the last 24 hr, 137 units of SQ insulin have been administered while patient is tolerating a diet * Fasting BSG 66-85 this AM with 65 units Lantus on board and no correctional insulin administered last evening - will titrate down * Post-prandial BSGs better controlled yesterday using more aggressive carb coverage - however given BSG pattern will use this larger prandial insulin dose with breakfast and lunch only and utilize smaller dose with evening meal 07/27 * Over the last 24 hrs, 134 units SQ insulin have been administered while patient is tolerating a diet * Dexamethasone 6mg IV Q AM continues (Day 7) * Fasting BSG 140-175 this AM with 55 units basal on board and after receiving 9 units correctional insulin HS - will continue to up titrate * Post-prandial BSGs elevated x 3 yesterday, however primary deficiency appeared to be more basal than prandial given lack of climbing BSGs following meals. Will make small adjustment to prandial insulin dose today as basal dose is also being increased. 07/26 * Over the last 24 hrs, 89 units SQ insulin have been administered while patient is tolerating a diet * Dexamethasone 6mg IV Q AM continues (Day 6) * Fasting BSG elevated this AM (FBS 214) w/ 45 units basal on board - will continue to up titrate * Post-prandial BSGs elevated x 3 yesterday - will continue to up titrate prandial insulin doses PLAN FOR INPATIENT GLYCEMIC CONTROL: * Hold outpatient oral diabetes medications * Today: 20 units administered this morning, lantus scale for this evening (0 or 10 units based on BSG) * Tomorrow: Basal insulin- increase * Lantus Q AM per scale: 25 units if BSG less than 140; 30 units if BSG greater than 140 * Bolus insulin * NovoLog per scale ACHS or Q6hrs while NPO * Goal Range: Low 110 mg/dL - High 140 mg/dL * Tighten: Correction Factor: 15 mg/dL/unit breakfast, lunch, and dinner; 18 mg/dL/unit at HS * Tighten: Nutritional / Prandial insulin per carb ratio of 1 unit per 5 grams CHO consumed w/ breakfast, lunch, and dinner; 1 unit per 6 gm CHO consumed at HS PLAN FOR DISCHARGE: * to be determined
--- NOTE | 2020-08-02 20:36 | Hospitalist Progress Note ---
Date of Service August 02, 2020 Assessment & Plan (1) Acute respiratory failure with hypoxia: O2 sats as low as 85% on 15 L [facility] day of admission. Acute respiratory failure due to COVID pneumonia. Management of pneumonia as discussed below. Requiring BiPAP alternating with high flow nasal O2 40 LPM. D-dimer elevated. Must consider possibility of pulmonary thromboembolism or pulmonary artery thrombotic disease. Started empirically on therapeutic SQ enoxaparin; consider transition to oral agent. Diagnostic imaging not obtained due to COVID precautions. Diurese as tolerated to optimize pulmonary status. Continue supplemental O2 / BiPAP as necessary, wean as tolerated. (2) Pneumonia due to COVID-19 virus: Chest x-ray demonstrated bilateral interstitial infiltrates consistent with COVID pneumonia. Received course of azithromycin and ceftriaxone for possible concomitant bacterial infection. COVID-specific therapies as discussed below. (3) COVID-19: Ill since ~ 07/16. SARS-CoV-2 done at retail pharmacy on 07/18 was positive. Associated malaise, cough, SOB, GI symptoms. COVID labs: lymphocytes 1520 >> 6110 > 11,670 CRP 2.35 > 2.57 > 6.95 > 3.86 > 11.5 procalcitonin 0.15 > 0.40 ferritin 2518 > 1802 > 2424 troponin 0.02 D-dimer 6760 > 2780 COVID therapies: Received IV dexamethasone x 10 days. Received remdesivir x 5 days Did not extend course to 10 days because: unlikely to offer clinical benefit elevated LFT's [place] unlikely that convalescent plasma would offer benefit. (4) Acute kidney injury: CKD III with baseline creatinine around 1.5. Creatinine at time of admission 2.47. Acute kidney injury secondary to COVID and associated problems. Nephrology consulted. Valsartan and HCTZ held. Diuresing as tolerated to optimize cardiopulmonary status. BUN today = 107. Creatinine today = 1.74. Holding diuretics. PRN dosing for worsening respiratory status. Follow. (5) Hypertension: Hypertension usually managed with valsartan + HCTZ- held due to KADEN. Started low dose metoprolol because of SVT, but developed hypotension and metoprolol was stopped. Follow. (6) CKD (chronic kidney disease), stage III: CKD III with baseline creatinine around 1.5. Underlying DM and hypertension. KADEN as discussed above. 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 Usually managed with oral agents. Hgb A1c 10.2. Worsening glycemic control due to steroid therapy. Pharmacy consulted for glycemic management. Lantus / NovoLog per protocol. FBS today = 118. (8) Leukocytosis: WBC 19,960 > 27,230. No fever. UA negative. No diarrhea. Chest x-ray unchanged. No acute process on KUB. Procalcitonin not elevated. Checking blood cultures- negative at 48 hours. Leukocytosis may be secondary to dexamethasone (now discontinued). Flow cytometry pending. WBC today = 22,670. Follow. (9) Malnutrition: Anorexia with poor PO intake. Seems to have anosmia / dysgeusia secondary to COVID-19. Seen by photo specialist. Supplements as tolerated. [place] diet. MVI. (10) Urinary retention: Urinary retention noted upon presentation to ED. Reddy cath placed and remained in place for several days. Voiding trial 07/29 - 07/31 not successful. Reddy reinserted. Hold tamsulosin at this time due to relatively low BP's. Voiding trial when able. (11) DVT prophylaxis: Receiving SQ enoxaparin. (12) Discharge planning issues: Discharge disposition to be determined. May need skilled care or rehab. Internal Medicine follow-up with Dr. Barfield. Son Ehsan given update by phone this evening. Admission and Anticipated Discharge Date Admission Date: July 21, 2020 Subjective Recheck for COVID-19 and other problems. Patient seen in their room around 1500. Used BiPAP during the night, but maintaining sats on high flow nasal O2 since this morning. No fever or cough. Fair PO intake. Review of Systems: Constitutional- as noted above. Cardiac- no chest pain. Pulmonary- as noted above. GI- no nausea, vomiting, diarrhea, melena, hematochezia. - Reddy cath. Otherwise, as noted above. Physical Exam Constitutional: + ill appearing Eyes: + anicteric sclerae ENMT: Mouth: + tongue abnormality (thrush improved) Respiratory: no respiratory distress Auscultation: + rales (fine) Cardiovascular: Rate/Rhythm: regular rate and regular rhythm Vessels: no JVD Extremities: no calf tenderness and no edema Gastrointestinal (Abdomen): normal bowel sounds, soft, nontender, no hepatosplenomegaly Musculoskeletal: Extremities: no cyanosis Skin: no rashes, warm and dry Psychiatric: Orientation: alert and oriented x 3 Results & Data Results & Data ([facility]) Vital Signs (Past 12 Hours) Vital Signs Temp Pulse Pulse Pulse Resp BP BP 08/02/20 20:26 110 H 18 08/02/20 19:35 36.9 C 118 H 20 111/71 08/02/20 16:00 115 H 08/02/20 15:22 36.7 C 117 H 20 117/69 08/02/20 15:06 20 08/02/20 11:41 112 H 22 08/02/20 11:04 36.5 C 118 H 17 106/73 Pulse Ox 08/02/20 20:26 91 08/02/20 19:35 90 08/02/20 16:00 08/02/20 15:22 89 L 08/02/20 15:06 93 08/02/20 11:41 90 08/02/20 11:04 89 L Laboratory Results Laboratory Results - last 24 hr 08/01/20 08/01/20 08/02/20 21:30 21:32 07:11 WBC RBC Hgb Hct MCV MCH MCHC RDW Std Deviation RDW Coeff of Lesia Plt Count MPV Immature Gran % (Auto) Neut % (Auto) Lymph % (Auto) [place] % (Auto) Eos % (Auto) Baso % (Auto) Neut # (Auto) Lymph # (Auto) [place] # (Auto) Eos # (Auto) Baso # (Auto) Immature Gran # (Auto) Sodium 140 Potassium 4.6 Chloride 107 Carbon Dioxide 24 Anion Gap 9.0 BUN 107 H Creatinine 1.74 H Est Cr Clr Drug Dosing 41.3 Est GFR ( Amer) 42.9 Est GFR (Non-Af Amer) 37.0 BUN/Creatinine Ratio 61.3 H Glucose 103 H POC Glucose 369 H* 367 H* Calcium 9.2 C-Reactive Protein 11.50 H NT-Pro-B Natriuret Pep 596 08/02/20 08/02/20 08/02/20 07:11 07:47 11:13 WBC 22.67 H RBC 5.09 Hgb 14.9 Hct 45.3 MCV 89.0 MCH 29.3 MCHC 32.9 RDW Std Deviation 46.2 RDW Coeff of Lesia 14.2 Plt Count 313 MPV 11.3 H Immature Gran % (Auto) 0.6 Neut % (Auto) 60.5 Lymph % (Auto) 35.8 [place] % (Auto) 2.9 Eos % (Auto) 0.2 Baso % (Auto) 0.0 Neut # (Auto) 13.72 H Lymph # (Auto) 8.11 H [place] # (Auto) 0.65 H Eos # (Auto) 0.04 Baso # (Auto) 0.01 Immature Gran # (Auto) 0.14 H Sodium Potassium Chloride Carbon Dioxide Anion Gap BUN Creatinine Est Cr Clr Drug Dosing Est GFR ( Amer) Est GFR (Non-Af Amer) BUN/Creatinine Ratio Glucose POC Glucose 118 H 169 H Calcium C-Reactive Protein NT-Pro-B Natriuret Pep 08/02/20 08/02/20 16:47 20:18 WBC RBC Hgb Hct MCV MCH MCHC RDW Std Deviation RDW Coeff of Lesia Plt Count MPV Immature Gran % (Auto) Neut % (Auto) Lymph % (Auto) [place] % (Auto) Eos % (Auto) Baso % (Auto) Neut # (Auto) Lymph # (Auto) [place] # (Auto) Eos # (Auto) Baso # (Auto) Immature Gran # (Auto) Sodium Potassium Chloride Carbon Dioxide Anion Gap BUN Creatinine Est Cr Clr Drug Dosing Est GFR ( Amer) Est GFR (Non-Af Amer) BUN/Creatinine Ratio Glucose POC Glucose 177 H 243 H Calcium C-Reactive Protein NT-Pro-B Natriuret Pep
[2020-08-02] MEDS ORDERED: INSULIN GLARGINE SOLOSTAR 100 UNITS/ML 3 ML PEN SC ONE (21:00)
[2020-08-02] MEDS: ATORVASTATIN 20 MG TAB PO SCH (21:30)
[2020-08-03] MEDS: CLOTRIMAZOLE 10 MG TROCHE BUCCAL SCH ×4 (02:07→15:24)
[2020-08-03 07:23] LABS: Hematocrit (blood only) 43.2 % (42-52); Hemoglobin 14.2 g/dL (14.0-18.0); Mean Corpuscular Hemoglobin 29.6 pg (25-34); Mean Corpuscular Hgb Conc 32.9 g/dL (32-36); Mean Platelet Volume 11.7 fL (7.4-10.4); Platelet Count 267 K/uL (130-400); RDW Coefficient of Variation 14.4 % (11.5-14.5); RDW Standard Deviation 47.1 fL (36.4-46.3)
[2020-08-03 07:59] LABS: BUN Creatinine Ratio 60.5 (10-20); Calcium 9.2 mg/dl (8.5-10.1); Creatinine Clr Calc Pharmacy 44.7 ml/min; Est GFR (African American) 47.1; Est GFR (Non-African American) 40.6; Potassium 4.5 mmol/L (3.5-5.1)
[2020-08-03] MEDS: FAMOTIDINE 10 MG TABLET PO SCH (08:03)
[2020-08-03] MEDS: NEPHROCAPS PO SCH (08:03)
[2020-08-03] MEDS: INSULIN ASPART 100 UNITS/ML 3 ML PEN SC SCH ×4 (08:03→20:01)
[2020-08-03] MEDS: INSULIN GLARGINE SOLOSTAR 100 UNITS/ML 3 ML PEN SC SCH (08:03)
[2020-08-03] MEDS: ASCORBIC ACID 500 MG TAB PO SCH (08:04)
[2020-08-03] MEDS: ZINC SULFATE 220 MG CAPSULE PO SCH (08:04)
[2020-08-03] MEDS: ENOXAPARIN 100 MG/1ML SYR SQ SCH ×2 (08:04→22:26)
--- NOTE | 2020-08-03 11:20 | Pharmacy Report ---
Pharmacy Glycemic Short Note 2 - Date of Service August 03, 2020 - Glycemic Short BSG Results (Last 24 hours): 08/02/20 08/02/20 08/02/20 11:13 16:47 20:18 Glucose POC Glucose 169 H 177 H 243 H 08/03/20 08/03/20 06:24 07:08 Glucose 121 H POC Glucose 116 H OUTPATIENT ANTIDIABETIC REGIMEN: * Glyburide 2.5mg daily * Repaglinide 2mg prior to meals * Pioglitazone 45mg daily * Sitagliptin 50mg Q AM * A1c = 10.2% 07/22/20 ASSESSMENT: 08/03: * 57 units SQ administered over last 24 hrs - pt did eat 2 of 3 meals yesterday * Fasting BSG 116 this AM with 30 units Lantus on board. Patient received 25 units Lantus this AM, will supplement 5 additional units w/ lunch. Dosing scale will be adjusted for tomorrow AM. * Post-prandial BSGs controlled 2 of 3 yesterday. Will continue same Novolog CF and CR doses for next 24 hrs as we do not have a clear trend. He may require larger prandial doses w/ dinner? 08/02: * 82 units SQ administered over the last 24 hours * Patient did experience hyperglycemia yesterday afternoon and evening, but fasting BSG this morning was adequate. An additional 15 units of lantus was administered last evening and novolog scale was tightened in response to the hyperglycemia. I also did switch the diet to a T2DM diet this morning. * Will add a lantus scale for this evening in the event BSGs start to rise again and morning lantus scale will be increased for tomorrow. 08/01 * 41 units SQ insulin given over last 24 hrs. Only 1 meal consumed yesterday. * No longer receiving dexamethasone IV (completed day #10 on 07/30) * Fasting BSG 83-129 with 30 units Lantus on board - will continue to titrate down given poor PO intake * Post-prandial BSG elevated after yesterday's breakfast meal. Patient did not eat lunch or dinner. Difficult to determine if CF/CR need adjusted based upon this info. Will lessen Novolog doses only slightly however given lack of steroid administration. Current doses are "severe" stress level based upon weight. 07/31 * 76 units SQ administered over last 24 hrs * Patient completed 10 days of IV Dexamethasone yesterday, loosen CF/CR * BSG 47mg/dl this morning, held AM Lantus, but then resumed at lunchtime at reduced dose * Consider changing Lantus to NPH if AM hypoglycemia persists PLAN FOR INPATIENT GLYCEMIC CONTROL: * Hold outpatient oral diabetes medications * Today: Lantus 25 units given this AM, add 5 units w/ lunch * Tomorrow: Basal insulin- adjust dosing scale to allow for larger doses at lower BSG * Lantus Q AM per scale: 25 units if BSG less than 110; 30 units if BSG greater than 110 * Bolus insulin * NovoLog per scale ACHS or Q6hrs while NPO * Goal Range: Low 110 mg/dL - High 140 mg/dL * Tighten: Correction Factor: 15 mg/dL/unit breakfast, lunch, and dinner; 18 mg/dL/unit at HS * Tighten: Nutritional / Prandial insulin per carb ratio of 1 unit per 5 grams CHO consumed w/ breakfast, lunch, and dinner; 1 unit per 6 gm CHO consumed at HS PLAN FOR DISCHARGE: * to be determined
[2020-08-03] MEDS ORDERED: INSULIN GLARGINE SOLOSTAR 100 UNITS/ML 3 ML PEN SC ONE (11:30)
[2020-08-03] MEDS ORDERED: FAMOTIDINE 20 MG in SYRINGE 3 ML IV PRN (16:26)
--- NOTE | 2020-08-03 16:54 | Hospitalist Progress Note ---
Date of Service August 03, 2020 Assessment & Plan (1) Acute respiratory failure with hypoxia: Acute respiratory failure 2/2 COVID pneumonia. Significant desaturation with minimal exertion on BIPAP and with BIPAP off. Intubation is an option. Cont current support unless actively failing BIPAP, but currently appears comfortable on these settings and oxygenating in the mid 90s. Requiring BiPAP alternating with high flow nasal O2 40 LPM. D-dimer elevated earlier in admission. Out of concern for possibility of pulmonary thromboembolism or pulmonary artery thrombotic disease he was started empirically on therapeutic Lovenox. Will consider switching to Eliquis to reduce shot burden, however, with tenuous respiratory status, he is preferably NPO. (Sips and chips OK for comfort). Diurese as tolerated to optimize pulmonary status; Lasix currently held and he appears euvolemic to dry on exam today so will continue to hold. Continue supplemental O2 / BiPAP as necessary, wean as tolerated. (2) Pneumonia due to COVID-19 virus: Bilateral infiltrates with negative procalcitonin consistent with COVID pneumonia. Received course of azithromycin and ceftriaxone for possible concomitant bacterial infection. (3) COVID-19: Symptoms since 07/16. SARS-CoV-2 done at retail pharmacy on 07/18 was positive. Associated malaise, cough, SOB, GI symptoms. COVID therapies: Received IV dexamethasone x 10 days. Received remdesivir x 5 days Did not extend course to 10 days because: unlikely to offer clinical benefit elevated LFT's Prior treatment team felt unlikely that convalescent plasma would offer benefit, which I agree with at this later date in the course. Will trend inflammatory markers again and monitor with support overnight in case this is a second wave of inflammation. Will discuss with additional specialists the utility of retreating with any therapies if that is the case. (4) Acute kidney injury: Acute on chronic CKD III with baseline creatinine around 1.5. Creatinine at time of admission 2.47. Acute kidney injury secondary to COVID and associated problems. Nephrology consulted. Valsartan and HCTZ held. Diuresing as tolerated to optimize cardiopulmonary status. BUN today = 107. Creatinine today continues to improve to 1.6. Holding diuretics. PRN dosing for worsening respiratory status. (5) Hypertension: At goal off valsartan HCT (6) Diabetes mellitus type 2 with complications: DM type II uncontrolled with A1C 10.2. Currently at inpatient goal on basal bolus insulin therapy. Cont BSG AcHs (7) Leukocytosis: No clear signs or symptoms present outside of COVID pneumonia. Suspect second wave of inflammation is related as respiratory status has worsened. WBC is slightly decreased today. Recent steroids may also be contributing. Will cont to trend. (8) Malnutrition: Anorexia with poor PO intake. Appetite has improved but cautious with PO intake with tenuous respiratory status as above. Nutrition. Supplements currently on hold to minimize time off the BIPAP. (9) Urinary retention: Acute urinary retention with Reddy placement in ED. Failed TOV with Reddy reinsertion on 07/31. Flomax on hold with relative hypotension. (10) DVT prophylaxis: Receiving SQ enoxaparin. Full Code Dispo-cont PCU status. May need intubation overnight if patient worsens. If he improves overnight or in the morning, please contact MD to restart diet. Jinny Grant DO [facility] Hospitalist. Admission and Anticipated Discharge Date Admission Date: July 21, 2020 Subjective currently pulse ox is mid 90s on BIPAP 28/09 at 100%. The patient is not working to breathe, but does desaturate quickly with any exertion. Encouraged to change position and prone if able. Denies chest pain, pain, coughing, fevers, etc. Asks if he is getting another wave of illness. Says this has been going on for two weeks. He has been off and on BIPAP to hi flow today intermittently and was able to eat a little something. With the tenuous respiratory status and dependency on the BIPAP I have made him NPO. Reports severe dry mouth. Called for Bentene spray to bedside and humidified oxygen. Otherwise mentating clearly. Review of Systems Review of Systems: All systems reviewed & are unremarkable except as noted in Subjective Physical Exam Physical Exam: CONSTITUTIONAL: WNWD, vitals as above, generally ill-appearing but comfortable on the BIPAP. EYES: normal conjunctivae, no scleral icterus ENT: Abrasions to nose without drainage or erythema. Mucous membranes are dry. Full face bIPAP mask in place. RESPIRATORY: clear to auscultation bilaterally, no crackles, rales or wheezes, normal respiratory effort on significant supplemental oxygen. CARDIOVASCULAR: tachy rate and rhythm, S1 and 2 heard without murmurs, gallops or rubs, no JVD, no peripheral edema GASTROINTESTINAL: soft, nontender, nondistended, no guarding. MUSCULOSKELETAL: strength 5/5 throughout, head is normocephalic and atraumatic SKIN: warm and dry NEUROLOGIC: CN 2-12 grossly intact, normal cognition, no gross focal deficits. PSYCHIATRIC: alert cooperative and oriented Results & Data Results & Data ([facility]) Vital Signs (Past 12 Hours) Vital Signs Temp Pulse Pulse Pulse Resp BP Pulse Ox 08/03/20 16:11 110 H 08/03/20 16:07 142 H 34 H 80 L 08/03/20 16:06 132 H 26 H 96 08/03/20 12:31 36.8 C 118 H 22 123/68 94 08/03/20 11:26 113 H 95 08/03/20 11:11 166 H 28 H 89 L 08/03/20 08:20 118 H 20 90 08/03/20 07:16 111 H Laboratory Results Short CBC 08/03/20 Range/Units 06:24 WBC 20.80 H (4.8-10.8) K/uL Hgb 14.2 (14.0-18.0) g/dL Hct 43.2 (42-52) % Plt Count 267 (130-400) K/uL BMP 08/03/20 06:24 Sodium 141 Potassium 4.5 Chloride 108 H Carbon Dioxide 26 BUN 97 H Creatinine 1.61 H Glucose 121 H Calcium 9.2 Medications Administered Current Inpatient Medications Acetaminophen (Acetaminophen 325 Mg Tab) 650 mg PO Q4H PRN PRN Reason: Pain or Fever Stop: 08/20/20 20:17 Albuterol (Albuterol Hfa 8 Gm Inhaler) 2 puffs INH Q4H PRN PRN Reason: Shortness Of Breath Or Wheezing Stop: 08/20/20 20:17 Last Admin: 07/24/20 08:43 Dose: 2 puffs Documented by: Ascorbic Acid (Ascorbic Acid 500 Mg Tab) 500 mg PO QAM [facility] Stop: 08/24/20 08:59 Last Admin: 08/03/20 08:04 Dose: 500 mg Documented by: Atorvastatin Calcium (Atorvastatin 20 Mg Tab) 20 mg PO QPM@2000 [facility] Stop: 08/20/20 20:29 Last Admin: 08/02/20 21:30 Dose: 20 mg Documented by: Clotrimazole (Clotrimazole 10 Mg Cuong) 10 mg BUCCAL [id number] JACKY Stop: 08/09/20 14:59 Last Admin: 08/03/20 15:24 Dose: Not Given Documented by: Dextrose (Dextrose 50% 50 Ml Syringe) 25 - 50 ml IV UD PRN; Protocol PRN Reason: Hypoglycemia Protocol Stop: 08/20/20 20:17 Enoxaparin Sodium (Enoxaparin 100 Mg/1ml Syr) 100 mg SQ Q12 JACKY; Protocol Stop: 08/21/20 09:59 Last Admin: 08/03/20 08:04 Dose: 100 mg Documented by: Famotidine (Famotidine 10 Mg Tablet) 10 mg PO BID@0800,2000 [facility] Stop: 08/20/20 20:29 Last Admin: 08/03/20 08:03 Dose: 10 mg Documented by: Glucagon (Glucagon For Inj 1 Mg Vial) 1 mg SQ UD PRN; Protocol PRN Reason: Hypoglycemia Protocol Stop: 08/20/20 20:17 Glucose (Glucose 10 Tabs/Tube) 4 - 8 tabs PO UD PRN; Protocol PRN Reason: Hypoglycemia Protocol Stop: 08/20/20 20:17 Glucose (Glucose 40% Gel 15 Gm Tube) 15 - 30 gm PO UD PRN; Protocol PRN Reason: Hypoglycemia Protocol Stop: 08/20/20 20:17 Furosemide 30 mg/ Syringe 3 mls @ 4 mls/min IV [id number] [facility] Stop: 08/29/20 16:59 Last Admin: 07/31/20 17:38 Dose: 4 mls/min Documented by: Famotidine 20 mg/ Syringe 5 mls @ 2.5 mls/min IV Q12H PRN PRN Reason: acid reflux Stop: 09/02/20 16:29 Insulin Aspart (Insulin Aspart 100 Units/Ml 3 Ml Pen) 0 units SC AC JACKY Stop: 08/28/20 07:29 Last Admin: 08/03/20 11:54 Dose: 4 units Documented by: Insulin Aspart (Insulin Aspart 100 Units/Ml 3 Ml Pen) 0 units SC HS [facility] Stop: 08/28/20 20:59 Last Admin: 08/02/20 20:54 Dose: 6 units Documented by: Insulin Glargine (Insulin Glargine Solostar 100 Units/Ml 3 Ml Pen) 0 units SC DAILY [facility]; Protocol Stop: 08/25/20 08:59 Last Admin: 08/03/20 08:03 Dose: 25 units Documented by: Lidocaine (Lidocaine Hcl 5% Oint 30 Gm Tube) 1 appln EXT Q4H PRN PRN Reason: Pain Stop: 08/31/20 21:02 Last Admin: 08/02/20 08:06 Dose: 1 appln Documented by: Miscellaneous (Carbohydrates For Hypoglycemia ) 15 - 30 gm PO UD PRN PRN Reason: Hypoglycemia Protocol Stop: 08/20/20 20:17 Miscellaneous Information (Pharmacy Glycemic Mgmt Consult) 1 ea N/A UD PRN; Protocol PRN Reason: Consult Stop: 08/20/20 20:32 Ondansetron HCl (Ondansetron Inj 2 Mg/Ml 2 Ml Vial) 4 mg IV Q6H PRN PRN Reason: Nausea Stop: 08/20/20 20:17 Phenol (Chloraseptic 1.4% Soln 180 Ml Btl) 2 sprays MT TID PRN PRN Reason: sore throat Stop: 08/22/20 12:15 Last Admin: 07/28/20 08:28 Dose: 2 sprays Documented by: Polyethylene Glycol (Polyethylene (Miralax) 17 Gm Pack) 17 gm PO DAILY PRN PRN Reason: Constipation Stop: 08/20/20 20:17 Vitamin B Complex/Folic Acid (Nephrocaps) 1 cap PO QAM [facility] Stop: 08/30/20 08:59 Last Admin: 08/03/20 08:03 Dose: 1 cap Documented by: Zinc Sulfate (Zinc Sulfate 220 Mg Capsule) 220 mg PO QAM [facility] Stop: 08/24/20 08:59 Last Admin: 08/03/20 08:04 Dose: 220 mg Documented by:
--- NOTE | 2020-08-04 04:05 | Communication Note ---
Date of Service: August 04, 2020 Notified by RN of bleeding facial wounds from BiPAP mask. Bleeding somewhat controlled by pressure dressing. AP Bleeding facial wounds from BiPAP mask Hold weight-based Lovenox for presumptive PE for now. Will relay to AM provider.
[2020-08-04] MEDS ORDERED: LEVALBUTEROL TARTRATE 15 GM HFA.AER.AD INH PRN (04:22)
[2020-08-04] MEDS ORDERED: LEVALBUTEROL TARTRATE 15 GM HFA.AER.AD INH STA (04:24)
[2020-08-04] MEDS ORDERED: methylPREDNISolone 40 MG in SYRINGE 0 ML IV STA (04:24)
[2020-08-04] MEDS ORDERED: methylPREDNISolone 125 MG/2 ML VIAL IV STA (04:28)
[2020-08-04 05:00] LABS: Hematocrit (blood only) 44.4 % (42-52); Hemoglobin 14.2 g/dL (14.0-18.0); Mean Corpuscular Hemoglobin 29.2 pg (25-34); Mean Corpuscular Volume 91.2 fL (80-100); Mean Platelet Volume 11.5 fL (7.4-10.4); Platelet Count 259 K/uL (130-400); RDW Coefficient of Variation 14.6 % (11.5-14.5); RDW Standard Deviation 48.7 fL (36.4-46.3); Red Blood Count 4.87 M/uL (4.7-6.1); White Blood Count 20.23 K/uL (4.8-10.8)
[2020-08-04 05:18] LABS: BUN Creatinine Ratio 60.6 (10-20); Calcium 9.2 mg/dl (8.5-10.1); Creatinine Clr Calc Pharmacy 41.3 ml/min; Est GFR (African American) 42.9; Magnesium 3.4 mg/dl (1.8-2.4); Potassium 4.7 mmol/L (3.5-5.1)
[2020-08-04 05:20] LABS: Partial Thromboplastin Ratio 1.5; Partial Thromboplastin Time 41.1 Seconds (21.0-31.0)
[2020-08-04 05:26] LABS: Echinocytes 1+; Eosinophils # (auto) 0.09 K/uL (0-0.5); Eosinophils % (auto) 0.4 %; Immature Granulocytes # (auto) 0.14 K/uL (0.00-0.02); Immature Granulocytes % (auto) 0.7 %; Lymphocytes # (auto) 7.69 K/uL (1.2-3.4); Monocytes % (auto) 2.5 %; Neutrophils # (auto) 11.81 K/uL (1.4-6.5); Neutrophils % (auto) 58.4 %
[2020-08-04 05:36] LABS: C Reactive Protein 13.9 mg/dl (0-0.29); Ferritin 7985.3 ng/ml (8-388)
[2020-08-04 07:34] LABS: Base Excess ABG -0.9 mEq/L (-9-1.8); HCO3 ABG 21 mmol/L (19-24); Oxygen Saturation ABG 78.6 % (90-95); PCO2 ABG 29 mmHg (35-46); PO2 ABG 41 mmHg (80-95); pH ABG 7.48 (7.35-7.45)
[2020-08-04 07:38] LABS: Allen Test Pos (Pos)
--- NOTE | 2020-08-04 08:15 | XRay Report ---
XR chest 1V portable HISTORY: Hypoxia. Coronavirus. COMPARISON: Chest 07/31/2020. FINDINGS: There is diffuse interstitial thickening and bibasilar hazy airspace opacities. This is sim ilar to the prior study. The heart remains normal in size. No pneumothorax. Suspect a trace left pleu ral effusion. IMPRESSION: No change in the diffuse interstitial thickening and bibasilar hazy airspace opacities. ACT 112: Negative or not required by law. Electronically signed by: Kevin Fontanez M.D. 08/04/2020 8:14 AM
[2020-08-04 08:49] LABS: Allen Test Pos (Pos); Base Excess ABG -0.5 mEq/L (-9-1.8); HCO3 ABG 23 mmol/L (19-24); Oxygen Saturation ABG 96.4 % (90-95); PCO2 ABG 34 mmHg (35-46); PO2 ABG 80 mmHg (80-95); pH ABG 7.44 (7.35-7.45)
[2020-08-04] MEDS: INSULIN ASPART 100 UNITS/ML 3 ML PEN SC SCH ×3 (08:55→21:00)
[2020-08-04] MEDS: INSULIN GLARGINE SOLOSTAR 100 UNITS/ML 3 ML PEN SC SCH ×2 (08:55→20:59)
--- NOTE | 2020-08-04 10:53 | Pulmonology Progress Note ---
Date of Service August 04, 2020 Assessment & Plan (1) Pneumonia due to COVID-19 virus: This patient has been seen by both my colleagues Dr. Palafox and Dr. Solano. The patient completed a course of remdesivir and is currently on a second course of Decadron. I would recommend trialing this patient on convalescent plasma. I do not think more steroids at this point will be of much benefit. I do understand that he is 3 to 4 weeks out of the initial diagnosis of COVID-19, however, there may be some underlying viral replication which may be mediating his ongoing illness which may potentially benefit from convalescent plasma. However, more likely, he may be in the fibroproliferative phase of ARDS related to his COVID-19 infection. I would recommend to avoid laying this patient flat and attempt awake proning if possible. At the very least, I would keep the head of his bed elevated 30 to 40 degrees. I would recommend obtaining a CT of his chest with contrast to better evaluate the parenchyma and also to evaluate for possible pulmonary embolism. I would recommend obtaining an echocardiogram to evaluate for myocarditis and/or stress-induced cardiomyopathy. A CT of his chest and echo may also help prognosticate. He appears to be on full dose anticoagulation which can be continued for the time being. His procalcitonin from 07/31/2020 was negative. I do not see a role for antibiotics at this time. He is currently on 30 mg twice daily of IV Lasix. He does have an KADEN, but this does appear to be improving. The risk versus benefits of a CT chest with contrast will have to be weighed and discussed with the family and patient. I will defer to the primary team. At least a CT of his chest without contrast would help further characterize the parenchymal involvement and evaluate for fibrotic disease. I would strongly encourage discussion of CODE STATUS with the family as apparently he was previously DNR/DNI and now has reverted back to being a full code. Palliative care consultation may be beneficial. I will continue to follow from periphery. Please call with questions. (2) Respiratory failure: Chronicity: acute Respiratory failure complication: hypoxia Qualified Code(s): J96.01 - Acute respiratory failure with hypoxia (3) Diabetes mellitus type 2 with complications: Admission and Anticipated Discharge Date Admission Date: July 21, 2020 Subjective Patient seen and examined at bedside. He was currently on a full face BiPAP m ask with an FiO2 of 80%. Patient was lying flat in bed. He was very difficult to understand the patient while on BiPAP. I did talk with the bedside nurse who notes that he has been lethargic lately. There is also been a small wound that developed on the bridge of his nose that was related to a BiPAP mask. His oxygen requirements have been continuously very high and he has been on high flow nasal cannula and BiPAP throughout his hospital course. He was desaturating down to the 70s on high flow nasal cannula this morning. Review of Systems Review of Systems: Unobtainable due to cognitive status Physical Exam Constitutional: Patient is tachypneic. He has full face BiPAP mask in place. He denies any shortness of breath. Eyes: PERRL, conjunctivae normal, anicteric sclerae ENMT: There is a bandage noted over the bridge of his nose. Otherwise it is difficult to assess the oropharynx due to the BiPAP mask Neck: normal visual inspection Respiratory: + uses accessory muscles Tachypneic. Crackles bilaterally. Cardiovascular: RRR, no murmur, no edema Gastrointestinal (Abdomen): normal bowel sounds, soft, nontender, no hepatosplenomegaly Musculoskeletal: no cyanosis or clubbing, extremities motor strength 5/5 Skin: no rashes, warm and dry Neurologic: PERRL, EOMI, accommodation nl, no face palsy, no dysarthria Psychiatric: A+Ox3, euthymic affect Results & Data Results & Data ([facility]) Vital Signs (Past 12 Hours) Vital Signs Temp Pulse Pulse Pulse Resp BP BP 08/04/20 08:47 98.4 F 111 H 18 121/63 08/04/20 07:25 108 H 21 08/04/20 07:20 24 08/04/20 04:56 112 H 22 08/04/20 04:04 97.7 F 111 H 20 99/56 L 08/04/20 03:30 100 H 20 08/04/20 03:00 98 H 08/04/20 00:27 97.7 F 107 H 24 94/64 L 08/03/20 23:29 98 H 22 Pulse Ox 08/04/20 08:47 95 08/04/20 07:25 90 08/04/20 07:20 78 L 08/04/20 04:56 86 L 08/04/20 04:04 80 L 08/04/20 03:30 85 L 08/04/20 03:00 08/04/20 00:27 93 08/03/20 23:29 95 I reviewed the vital signs, labs and imaging PG Care Time/CCT Total # of Minutes Spent Total Time Spent with Patient: Total time spent is greater than 50% in coordination of care (as documented) at patient's floor/unit and/or counseling patient: Coding Level of Care Code 65024 Subseq Hosp Care Lvl 3 Diagnoses Pneumonia due to COVID-19 virus U07.1; J12.89 Respiratory failure J96.01 Chronicity: acute Respiratory failure complication: hypoxia Diabetes mellitus type 2 with complications E11.8
[2020-08-04] MEDS: dexAMETHasone 6 MG in SYRINGE 0 ML IV SCH (11:10)
[2020-08-04] MEDS ORDERED: INSULIN GLARGINE SOLOSTAR 100 UNITS/ML 3 ML PEN SC SCH (12:00)
--- NOTE | 2020-08-04 12:53 | Pharmacy Report ---
Pharmacy Glycemic Short Note 2 - Date of Service August 04, 2020 - Glycemic Short BSG Results (Last 24 hours): 08/03/20 08/03/20 08/04/20 17:02 19:42 00:32 Glucose POC Glucose 115 H 94 105 H 08/04/20 08/04/20 08/04/20 04:27 07:50 11:09 Glucose 146 H POC Glucose 211 H 234 H 08/04/20 12:30 Glucose POC Glucose 239 H OUTPATIENT ANTIDIABETIC REGIMEN: * Glyburide 2.5mg daily * Repaglinide 2mg prior to meals * Pioglitazone 45mg daily * Sitagliptin 50mg Q AM * A1c = 10.2% 07/22/20 ASSESSMENT: 08/04 * 39 units SQ administered (patient only ate 1 meal yesterday) * BSG this morning ranging between 105-211. * Patient was restarted on daily IV dexamethasone this morning, but was made NPO. Novolog was tightened at that time. As lunchtime BSG elevated, an additional 10 units of Lantus was given and a scale ordered for this evening. 08/03: * 57 units SQ administered over last 24 hrs - pt did eat 2 of 3 meals yesterday * Fasting BSG 116 this AM with 30 units Lantus on board. Patient received 25 units Lantus this AM, will supplement 5 additional units w/ lunch. Dosing scale will be adjusted for tomorrow AM. * Post-prandial BSGs controlled 2 of 3 yesterday. Will continue same Novolog CF and CR doses for next 24 hrs as we do not have a clear trend. He may require larger prandial doses w/ dinner? 08/02: * 82 units SQ administered over the last 24 hours * Patient did experience hyperglycemia yesterday afternoon and evening, but fasting BSG this morning was adequate. An additional 15 units of lantus was administered last evening and novolog scale was tightened in response to the hyperglycemia. I also did switch the diet to a T2DM diet this morning. * Will add a lantus scale for this evening in the event BSGs start to rise again and morning lantus scale will be increased for tomorrow. 08/01 * 41 units SQ insulin given over last 24 hrs. Only 1 meal consumed yesterday. * No longer receiving dexamethasone IV (completed day #10 on 07/30) * Fasting BSG 83-129 with 30 units Lantus on board - will continue to titrate down given poor PO intake * Post-prandial BSG elevated after yesterday's breakfast meal. Patient did not eat lunch or dinner. Difficult to determine if CF/CR need adjusted based upon this info. Will lessen Novolog doses only slightly however given lack of steroid administration. Current doses are "severe" stress level based upon weight. 07/31 * 76 units SQ administered over last 24 hrs * Patient completed 10 days of IV Dexamethasone yesterday, loosen CF/CR * BSG 47mg/dl this morning, held AM Lantus, but then resumed at lunchtime at reduced dose * Consider changing Lantus to NPH if AM hypoglycemia persists PLAN FOR INPATIENT GLYCEMIC CONTROL: * Hold outpatient oral diabetes medications * Today: Lantus 20 units given this AM, add 10 units w/ lunch * This evening: Basal insulin- * Lantus BID per scale: 10 units if BSG less than 110; 15 units if BSG 110- 180; 20 units if BSG greater than 180 * Bolus insulin * NovoLog per scale ACHS or Q6hrs while NPO * Goal Range: Low 110 mg/dL - High 140 mg/dL * Tighten: Correction Factor: 12 mg/dL/unit * Tighten: Nutritional / Prandial insulin per carb ratio of 1 unit per 4 grams CHO consumed consumed PLAN FOR DISCHARGE: * to be determined
[2020-08-04] MEDS ORDERED: ACETAMINOPHEN 325 MG TAB PO ONE (17:41)
--- NOTE | 2020-08-04 17:45 | Hospitalist Progress Note ---
Date of Service August 04, 2020 Assessment & Plan (1) Acute respiratory failure with hypoxia: Acute respiratory failure 2/2 COVID pneumonia. Significant desaturation with minimal exertion on BIPAP and with BIPAP off. Intubation is an option. Cont current support unless actively failing BIPAP, but currently appears comfortable on these settings and oxygenating in the mid 90s on 09/20 @80%. Pulm re-engaged today. Restarted dexamethasone for another course. D-dimer elevated earlier in admission. Out of concern for possibility of pulmonary thromboembolism or pulmonary artery thrombotic disease he was started empirically on therapeutic Lovenox. Bleeding from nasal skin abrasion ov ernight, so this was put on hold. Discussed this with [facility] who recommended they were moving away from full dose AC at [facility], and only 40mg for DVT prophy would be recommended. Will plan to restart this in am as he is high risk for DVT. Diurese as tolerated to optimize pulmonary status; put Lasix on hold 08/03 as he appeared euvolemic to dry. Want to avoid dehydration and he has very poor access to free water at this time. Will give some IVF x 2 bags. Na in mid 140s. With ?respiratory status, discussed with the nurse to be vigilant of any issues overnight. Monitor BMP in am. (2) Acquired lymphocytosis: Notified that flow + and poss CLL dx but this still pending. Discussed with Hematology in [facility] who recommends follow-up as outpatient. record review revealed no cell line abnormalities since 2016. (3) Pneumonia due to COVID-19 virus: Bilateral infiltrates with negative procalcitonin consistent with COVID pneumonia. Received course of azithromycin and ceftriaxone for possible concomitant bacterial infection. (4) COVID-19: Symptoms since 07/16. SARS-CoV-2 done at retail pharmacy on 07/18 was positive. Associated malaise, cough, SOB, GI symptoms. COVID therapies: Received IV dexamethasone x 10 days. Received remdesivir x 5 days Did not extend course to 10 days because: unlikely to offer clinical benefit elevated LFT's -Consented for CP with new wave of inflammation and ?new viral replication. This was ordered. -Restarted dexamethasone (5) Acute kidney injury: Acute on chronic CKD III with baseline creatinine around 1.5. Creatinine at time of admission 2.47. Acute kidney injury secondary to COVID and associated problems. Nephrology consulted. Valsartan and HCTZ held. Diuresing as tolerated to optimize cardiopulmonary status. BUN today = 107. Creatinine appears stable. Patient clinically appears dry. IVF overnight as above. Cont holding Lasix. 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 Currently at inpatient goal on basal bolus insulin therapy. Cont BSG AcHs (8) Malnutrition: Anorexia with poor PO intake. Appetite has improved but cautious with PO intake with tenuous respiratory status as above. Nutrition. Supplements currently on hold to minimize time off the BIPAP. (9) Urinary retention: Acute urinary retention with Reddy placement in ED. Failed TOV with Reddy reinsertion on 07/31. Flomax on hold with relative hypotension. (10) DVT prophylaxis: Restart SQ Connie at 40mg daily tomorrow am. Full Code Dispo-cont PCU status. May need intubation overnight if patient worsens. If he improves overnight or in the morning, please contact MD to restart diet. Jinny Grant DO [facility] Hospitalist. Admission and Anticipated Discharge Date Admission Date: July 21, 2020 Subjective Pt still dependent on BIPAP all day Desaturates quickly in <1 minute off this Inflammatory markers are up indicating poss new viral load/"wave" of covid illness He appears more tired today but is not working to breathe Notified pulm and we discussed his care plan. Restarted dexamethasone and offered conv plasma, which was ordered Pathology contacted me about monoclonal B cell population seen on flow cytometry-study still pending, poss CLL Contacted [facility] Hematology and discussed case. Nothing to do at this time. Will need to follow-up with Dr. Baeza as outpatient. Disclosed all to patient who verbalized understanding. Updated family by phone in the evening Review of Systems Review of Systems: All systems reviewed & are unremarkable except as noted in Subjective Physical Exam Physical Exam: CONSTITUTIONAL: WNWD, vitals as above, generally ill-appearing but comfortable on the BIPAP. Fatigued EYES: normal conjunctivae, no scleral icterus ENT: Abrasions to nose without drainage or erythema. Nose is wrapped. Mucous membranes are dry. Full face bIPAP mask in place. RESPIRATORY: clear to auscultation bilaterally, no crackles, rales or wheezes, normal respiratory effort on significant supplemental oxygen with BIPAP support. CARDIOVASCULAR: tachy rate and regular rhythm, S1 and 2 heard without murmurs, gallops or rubs, no JVD, no peripheral edema GASTROINTESTINAL: soft, nontender, nondistended, no guarding. MUSCULOSKELETAL: generalized weakness. Moves around the bed independently. SKIN: warm and dry, breakdown on his nose. NEUROLOGIC: CN 2-12 grossly intact, normal cognition, no gross focal deficits. PSYCHIATRIC: alert cooperative and oriented Results & Data Results & Data ([facility]) Vital Signs (Past 12 Hours) Vital Signs Temp Pulse Pulse Pulse Resp BP BP 08/04/20 15:58 102 H 24 08/04/20 14:58 36.4 C L 104 H 18 114/72 08/04/20 11:58 37.0 C 79 19 118/73 08/04/20 11:31 107 H 12 08/04/20 08:47 36.9 C 111 H 18 121/63 08/04/20 07:25 108 H 21 08/04/20 07:20 24 Pulse Ox 08/04/20 15:58 90 08/04/20 14:58 95 08/04/20 11:58 94 08/04/20 11:31 92 08/04/20 08:47 95 08/04/20 07:25 90 08/04/20 07:20 78 L Laboratory Results Short CBC 08/04/20 Range/Units 04:27 WBC 20.23 H (4.8-10.8) K/uL Hgb 14.2 (14.0-18.0) g/dL Hct 44.4 (42-52) % Plt Count 259 (130-400) K/uL BMP 08/04/20 04:27 Sodium 143 Potassium 4.7 Chloride 111 H Carbon Dioxide 25 BUN 106 H Creatinine 1.74 H Glucose 146 H Calcium 9.2 Medications Administered Current Inpatient Medications Acetaminophen (Acetaminophen 325 Mg Tab) 650 mg PO Q4H PRN PRN Reason: Pain or Fever Stop: 08/20/20 20:17 Acetaminophen (Acetaminophen 325 Mg Tab) 650 mg PO PRE-TREAT ONE Stop: 08/05/20 01:42 Ascorbic Acid (Ascorbic Acid 500 Mg Tab) 1,000 mg PO QAM [facility] Stop: 09/03/20 08:59 Atorvastatin Calcium (Atorvastatin 20 Mg Tab) 20 mg PO QPM@2000 [facility] Stop: 08/20/20 20:29 Last Admin: 08/02/20 21:30 Dose: 20 mg Documented by: Clotrimazole (Clotrimazole 10 Mg Cuong) 10 mg BUCCAL [id number] [facility] Stop: 08/09/20 14:59 Last Admin: 08/03/20 15:24 Dose: Not Given Documented by: Dextrose (Dextrose 50% 50 Ml Syringe) 25 - 50 ml IV UD PRN; Protocol PRN Reason: Hypoglycemia Protocol Stop: 08/20/20 20:17 Enoxaparin Sodium (Enoxaparin 100 Mg/1ml Syr) 100 mg SQ Q12 [facility]; Protocol Stop: 08/21/20 09:59 Last Admin: 08/03/20 22:26 Dose: 100 mg Documented by: Famotidine (Famotidine 10 Mg Tablet) 10 mg PO BID@ [facility] Stop: 08/20/20 20:29 Last Admin: 08/03/20 08:03 Dose: 10 mg Documented by: Glucagon (Glucagon For Inj 1 Mg Vial) 1 mg SQ UD PRN; Protocol PRN Reason: Hypoglycemia Protocol Stop: 08/20/20 20:17 Glucose (Glucose 10 Tabs/Tube) 4 - 8 tabs PO UD PRN; Protocol PRN Reason: Hypoglycemia Protocol Stop: 08/20/20 20:17 Glucose (Glucose 40% Gel 15 Gm Tube) 15 - 30 gm PO UD PRN; Protocol PRN Reason: Hypoglycemia Protocol Stop: 08/20/20 20:17 Furosemide 30 mg/ Syringe 3 mls @ 4 mls/min IV [id number] [facility] Stop: 08/29/20 16:59 Last Admin: 07/31/20 17:38 Dose: 4 mls/min Documented by: Famotidine 20 mg/ Syringe 5 mls @ 2.5 mls/min IV Q12H PRN PRN Reason: acid reflux Stop: 09/02/20 16:29 Dexamethasone 6 mg/ Syringe 1.5 mls @ 1 mls/min IV DAILY [facility] Stop: 09/03/20 08:59 Last Admin: 08/04/20 11:10 Dose: 1 mls/min Documented by: Dextrose/Sodium Chloride (D5w And 1/2nss) 1,000 mls @ 80 mls/hr IV .[id number] [facility] Stop: 08/05/20 18:44 Insulin Aspart (Insulin Aspart 100 Units/Ml 3 Ml Pen) 0 units SC Q6 [facility] Stop: 09/03/20 17:59 Insulin Glargine (Insulin Glargine Solostar 100 Units/Ml 3 Ml Pen) 0 units SC BID [facility]; Protocol Stop: 09/03/20 20:59 Levalbuterol HCl (Levalbuterol Tartrate 15 Gm Hfa.Aer.Ad) 2 puffs INH Q4H PRN PRN Reason: sob/wheeze Stop: 09/03/20 04:21 Lidocaine (Lidocaine Hcl 5% Oint 30 Gm Tube) 1 appln EXT Q4H PRN PRN Reason: Pain Stop: 08/31/20 21:02 Last Admin: 08/02/20 08:06 Dose: 1 appln Documented by: Miscellaneous (Carbohydrates For Hypoglycemia ) 15 - 30 gm PO UD PRN PRN Reason: Hypoglycemia Protocol Stop: 08/20/20 20:17 Miscellaneous Information (Pharmacy Glycemic Mgmt Consult) 1 ea N/A UD PRN; Protocol PRN Reason: Consult Stop: 08/20/20 20:32 Ondansetron HCl (Ondansetron Inj 2 Mg/Ml 2 Ml Vial) 4 mg IV Q6H PRN PRN Reason: Nausea Stop: 08/20/20 20:17 Phenol (Chloraseptic 1.4% Soln 180 Ml Btl) 2 sprays MT TID PRN PRN Reason: sore throat Stop: 08/22/20 12:15 Last Admin: 07/28/20 08:28 Dose: 2 sprays Documented by: Polyethylene Glycol (Polyethylene (Miralax) 17 Gm Pack) 17 gm PO DAILY PRN PRN Reason: Constipation Stop: 08/20/20 20:17 Vitamin B Complex/Folic Acid (Nephrocaps) 1 cap PO QAM [facility] Stop: 08/30/20 08:59 Last Admin: 08/03/20 08:03 Dose: 1 cap Documented by: Vitamin D (Cholecalciferol 1,000 Units 25 Mcg Tab) 2,000 units PO QAM [facility] Stop: 09/03/20 08:59 Zinc Sulfate (Zinc Sulfate 220 Mg Capsule) 220 mg PO QAM [facility] Stop: 08/24/20 08:59 Last Admin: 08/03/20 08:04 Dose: 220 mg Documented by:
[2020-08-04] MEDS ORDERED: INSULIN ASPART 100 UNITS/ML 3 ML PEN SC SCH (18:00)
[2020-08-04] MEDS: ASCORBIC ACID 500 MG TAB PO SCH (18:23)
[2020-08-04] MEDS: CHOLECALCIFEROL 1,000 UNITS 25 MCG TAB PO SCH (18:23)
[2020-08-04] MEDS: ZINC SULFATE 220 MG CAPSULE PO SCH (18:23)
[2020-08-04] MEDS: D5W AND 1/2NSS 1,000 ML IV SCH (18:29)
[2020-08-04] MEDS ORDERED: ACETAMINOPHEN 325 MG TAB PO PRN (18:42)
[2020-08-05] MEDS: INSULIN ASPART 100 UNITS/ML 3 ML PEN SC SCH ×6 (00:40→20:56)
[2020-08-05 07:25] LABS: Hematocrit (blood only) 43.9 % (42-52); Mean Corpuscular Hemoglobin 29.5 pg (25-34); Mean Corpuscular Hgb Conc 31.9 g/dL (32-36); Mean Corpuscular Volume 92.6 fL (80-100); Mean Platelet Volume 11.2 fL (7.4-10.4); Platelet Count 244 K/uL (130-400); RDW Coefficient of Variation 14.8 % (11.5-14.5); RDW Standard Deviation 49.8 fL (36.4-46.3); Red Blood Count 4.74 M/uL (4.7-6.1); White Blood Count 21.06 K/uL (4.8-10.8)
[2020-08-05 07:32] LABS: BUN Creatinine Ratio 63.6 (10-20); Calcium 9.4 mg/dl (8.5-10.1); Creatinine Clr Calc Pharmacy 38.9 ml/min; Est GFR (African American) 39.8; Est GFR (Non-African American) 34.4; Magnesium 3.6 mg/dl (1.8-2.4); Phosphorus 4.7 mg/dl (2.5-4.9); Potassium 4.4 mmol/L (3.5-5.1)
[2020-08-05] MEDS: D5W AND 1/2NSS 1,000 ML IV SCH (09:03)
[2020-08-05] MEDS: INSULIN GLARGINE SOLOSTAR 100 UNITS/ML 3 ML PEN SC SCH ×2 (09:03→20:57)
[2020-08-05] MEDS: dexAMETHasone 6 MG in SYRINGE 0 ML IV SCH (09:04)
[2020-08-05] MEDS: ENOXAPARIN INJ 40 MG/0.4 ML SYR SQ SCH (09:05)
[2020-08-05] MEDS: CHOLECALCIFEROL 1,000 UNITS 25 MCG TAB PO SCH (09:14)
[2020-08-05] MEDS: ASCORBIC ACID 500 MG TAB PO SCH (09:14)
[2020-08-05] MEDS: ZINC SULFATE 220 MG CAPSULE PO SCH (09:14)
[2020-08-05] MEDS ORDERED: DEXTROSE 5% 1,000 ML IV SCH (10:00)
--- NOTE | 2020-08-05 13:22 | Pulmonology Progress Note ---
Date of Service August 05, 2020 Assessment & Plan (1) Pneumonia due to COVID-19 virus: Patient still remains profoundly hypoxemic. Alternating between BiPAP and high flow nasal cannula. Nutrition intake has been very limited. We may need to consider placing an NG tube in the near future for the initiation of tube feeds. Physical therapy is very limited due to the patient's hypoxemia. Apparently, the patient insists on lying flat in the bed. Recommend maintaining the head of the bed elevated about 30 degrees and awake proning if tolerated. No evidence of bacterial infection noted at this time. Systemic steroids at this point will likely have limited benefit. Continue VTE prophylaxis. No further role for remdesivir. Convalescent plasma was ordered. Echocardiogram with evidence of grade 1 diastolic dysfunction and a small left pleural effusion. EF of 65 to 70%. Valvular anatomy was poorly visualized. The right ventricle was normal in size and function. I do not believe that bubble study was performed. Chest x-ray from yesterday reviewed and demonstrates diffuse interstitial markings. He may possibly be in the fibroproliferative phase of ARDS. He is currently receiving Decadron. Pulmonary will continue to follow from the periphery. Please call with ques tions. (2) Acute respiratory failure with hypoxia: Admission and Anticipated Discharge Date Admission Date: July 21, 2020 Subjective Physical exam and history were deferred due to the COVID-19 pandemic. I had a discussion with patient's respiratory therapist and nurse. Patient goes on and off high flow nasal cannula and BiPAP. He has not had nutrition for the last 2 days. No significant changes from yesterday. Review of Systems Review of Systems: Not obtained due to the COVID-19 pandemic Physical Exam Physical Exam: Deferred. Please see hospitalist physical exam. Results & Data Results & Data ([facility]) Vital Signs (Past 12 Hours) Vital Signs Temp Pulse Pulse Pulse Resp BP Pulse Ox 08/05/20 08:00 98.2 F 88 20 119/71 95 08/05/20 07:12 79 16 97 08/05/20 03:36 96.6 F L 84 20 123/78 97 08/05/20 03:23 82 19 98 08/05/20 02:35 96 H 16 96 I reviewed the labs, vitals and echo PG Care Time/CCT Total # of Minutes Spent Total Time Spent with Patient: Total time spent is greater than 50% in coordination of care (as documented) at patient's floor/unit and/or counseling patient: Coding Level of Care Code 52281 Subseq Hosp Care Lvl 2 Diagnoses Pneumonia due to COVID-19 virus U07.1; J12.89 Acute respiratory failure with hypoxia J96.01 Time Spent (min) 28
--- NOTE | 2020-08-05 17:50 | Hospitalist Progress Note ---
Date of Service August 05, 2020 Assessment & Plan (1) Acute respiratory failure with hypoxia: Acute respiratory failure 2/2 COVID pneumonia. Significant desaturation with minimal exertion on BIPAP and with BIPAP off. Intubation is an option and pulm/CC is following progress. Dexamethasone course restarted. Conv plasma transfused last night. D-dimer elevated earlier in admission. Out of concern for possibility of pulmonary thromboembolism or pulmonary artery thrombotic disease he was started empirically on therapeutic Lovenox. Bleeding from nasal skin abrasion overnight, so this was put on hold. Discussed this with Transportation Engineer who recommended they were moving away from full dose AC at [facility], and only 40mg for DVT prophy would be recommended. He continues on this now and is doing well from a bleeding standpoint. Diurese as tolerated to optimize pulmonary status; put Lasix on hold 08/03 as he appeared euvolemic to dry. IVF started to avoid dehydration, however, Na went to 147 this am. IVF switched to free water, and then stopped when fine crackles heard on exam. Respiratory status is better today. Encouraged PO intake of water and he had some Boost supplementation. (2) Acquired lymphocytosis: Notified that flow + and poss CLL dx. Discussed with Hematology in [facility] who recommends H/O follow-up as outpatient. Record review revealed no cell line abnormalities since 2016. (3) Pneumonia due to COVID-19 virus: Bilateral infiltrates with negative procalcitonin consistent with COVID pneumonia. Received course of azithromycin and ceftriaxone for possible conc omitant bacterial infection. (4) COVID-19: Symptoms since 07/16. SARS-CoV-2 done at retail pharmacy on 07/18 was positive. Associated malaise, cough, SOB, GI symptoms. COVID therapies: Received IV dexamethasone x 10 days. Received remdesivir x 5 days Did not extend course to 10 days because: unlikely to offer clinical benefit elevated LFT's -tranafused CP on 08/04 -Restarted dexamethasone 08/04 (5) Acute kidney injury: Acute on chronic CKD III with baseline creatinine around 1.5. Creatinine at time of admission 2.47. Acute kidney injury secondary to COVID and associated problems. Nephrology consulted. Valsartan and HCTZ held. Diuresing as tolerated to optimize cardiopulmonary status. BUN today = 107. Lasix held-->IVF overnight. Creat around baseline. 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 Currently at inpatient goal on basal bolus insulin therapy. Cont BSG AcHs (8) Malnutrition: Anorexia with poor PO intake 2/2 tenuous respiratory status. ?NGT soon per pulm although this will be difficult in someone needing BIPAP. For now he is tolerating PO. Keep bed elevated at 30 degrees. Nutrition following. (9) Urinary retention: Acute urinary retention with Reddy placement in ED. Failed TOV with Reddy reinsertion on 07/31. Flomax on hold with relative hypotension. (10) DVT prophylaxis: Lovenox 40mg daily Full Code Dispo-cont PCU status. Jinny Grant DO [facility] Hospitalist. Admission and Anticipated Discharge Date Admission Date: July 21, 2020 Subjective BIPAP for most of the day feels lsightly improved clinically CP given overnight able to transition to Hi flow this evening and has been stable on it for a coupl e of hours and able to drink PO water and some boost he spoke with his family by phone quickly I updated his son Ehsan by phone tonight. Review of Systems Review of Systems: All systems reviewed & are unremarkable except as noted in Subjective Physical Exam Physical Exam: CONSTITUTIONAL: WNWD, vitals as above, generally ill-appearing but comfortable on the BIPAP. Fatigued EYES: normal conjunctivae, no scleral icterus ENT: Abrasions to nose without drainage or erythema. Nose is wrapped. Mucous membranes are moist. Hi flow nasal canula in place. RESPIRATORY: fine crackles on left base, clear on right lung, no rales or wheezes, normal respiratory effort on significant supplemental oxygen with BIPAP support. CARDIOVASCULAR: tachy rate and regular rhythm, S1 and 2 heard without murmurs, gallops or rubs, no JVD, no peripheral edema GASTROINTESTINAL: soft, nontender, nondistended, no guarding. MUSCULOSKELETAL: generalized weakness. Moves around the bed independently. SKIN: warm and dry, breakdown on his nose. This is covered with a dry gauze. NEUROLOGIC: CN 2-12 grossly intact, normal cognition, no gross focal deficits. PSYCHIATRIC: alert cooperative and oriented Results & Data Results & Data ([facility]) Vital Signs (Past 12 Hours) Vital Signs Temp Pulse Pulse Resp BP Pulse Ox 08/05/20 16:30 36.9 C 104 H 18 103/72 86 L 08/05/20 15:08 91 H 16 95 08/05/20 08:00 36.8 C 88 20 119/71 95 08/05/20 07:12 79 16 97 Laboratory Results Short CBC 08/05/20 Range/Units 06:04 WBC 21.06 H (4.8-10.8) K/uL Hgb 14.0 (14.0-18.0) g/dL Hct 43.9 (42-52) % Plt Count 244 (130-400) K/uL BMP 08/05/20 06:04 Sodium 147 H Potassium 4.4 Chloride 113 H Carbon Dioxide 27 BUN 118 H Creatinine 1.85 H Glucose 161 H Calcium 9.4 Medications Administered Current Inpatient Medications Acetaminophen (Acetaminophen 325 Mg Tab) 650 mg PO Q4H PRN PRN Reason: Pain or Fever Stop: 08/20/20 20:17 Ascorbic Acid (Ascorbic Acid 500 Mg Tab) 1,000 mg PO QAM [facility] Stop: 09/03/20 08:59 Last Admin: 08/05/20 09:14 Dose: 1,000 mg Documented by: Atorvastatin Calcium (Atorvastatin 20 Mg Tab) 20 mg PO QPM@1999 [facility] Stop: 08/20/20 20:29 Last Admin: 08/02/20 21:30 Dose: 20 mg Documented by: Clotrimazole (Clotrimazole 10 Mg Cuong) 10 mg BUCCAL [id number] [facility] Stop: 08/09/20 14:59 Last Admin: 08/03/20 15:24 Dose: Not Given Documented by: Dextrose (Dextrose 50% 50 Ml Syringe) 25 - 50 ml IV UD PRN; Protocol PRN Reason: Hypoglycemia Protocol Stop: 08/20/20 20:17 Enoxaparin Sodium (Enoxaparin Inj 40 Mg/0.4 Ml Syr) 40 mg SQ QAM [facility] Stop: 09/04/20 08:59 Last Admin: 08/05/20 09:05 Dose: 40 mg Documented by: Famotidine (Famotidine 10 Mg Tablet) 10 mg PO BID@799,1999 [facility] Stop: 08/20/20 20:29 Last Admin: 08/03/20 08:03 Dose: 10 mg Documented by: Glucagon (Glucagon For Inj 1 Mg Vial) 1 mg SQ UD PRN; Protocol PRN Reason: Hypoglycemia Protocol Stop: 08/20/20 20:17 Glucose (Glucose 10 Tabs/Tube) 4 - 8 tabs PO UD PRN; Protocol PRN Reason: Hypoglycemia Protocol Stop: 08/20/20 20:17 Glucose (Glucose 40% Gel 15 Gm Tube) 15 - 30 gm PO UD PRN; Protocol PRN Reason: Hypoglycemia Protocol Stop: 08/20/20 20:17 Furosemide 30 mg/ Syringe 3 mls @ 4 mls/min IV [id number] JACKY Stop: 08/29/20 16:59 Last Admin: 07/31/20 17:38 Dose: 4 mls/min Documented by: Famotidine 20 mg/ Syringe 5 mls @ 2.5 mls/min IV Q12H PRN PRN Reason: acid reflux Stop: 09/02/20 16:29 Dexamethasone 6 mg/ Syringe 1.5 mls @ 1 mls/min IV DAILY [facility]ACK[facility] Stop: 09/03/20 08:59 Last Admin: 08/05/20 09:04 Dose: 1 mls/min Documented by: Dextrose (D5w) 1,000 mls @ 80 mls/hr IV .[id number] [facility] Stop: 08/05/20 22:29 Last Admin: 08/05/20 10:15 Dose: 80 mls/hr Documented by: Insulin Aspart (Insulin Aspart 100 Units/Ml 3 Ml Pen) 0 units SC Q4 [facility] Stop: 09/03/20 19:59 Last Admin: 08/05/20 16:32 Dose: 11 units Documented by: Insulin Glargine (Insulin Glargine Solostar 100 Units/Ml 3 Ml Pen) 0 units SC BID JACKY; Protocol Stop: 09/03/20 20:59 Last Admin: 08/05/20 09:03 Dose: 25 units Documented by: Levalbuterol HCl (Levalbuterol Tartrate 15 Gm Hfa.Aer.Ad) 2 puffs INH Q4H PRN PRN Reason: sob/wheeze Stop: 09/03/20 04:21 Lidocaine (Lidocaine Hcl 5% Oint 30 Gm Tube) 1 appln EXT Q4H PRN PRN Reason: Pain Stop: 08/31/20 21:02 Last Admin: 08/02/20 08:06 Dose: 1 appln Documented by: Miscellaneous (Carbohydrates For Hypoglycemia ) 15 - 30 gm PO UD PRN PRN Reason: Hypoglycemia Protocol Stop: 08/20/20 20:17 Miscellaneous Information (Pharmacy Glycemic Mgmt Consult) 1 ea N/A UD PRN; Protocol PRN Reason: Consult Stop: 08/20/20 20:32 Ondansetron HCl (Ondansetron Inj 2 Mg/Ml 2 Ml Vial) 4 mg IV Q6H PRN PRN Reason: Nausea Stop: 08/20/20 20:17 Phenol (Chloraseptic 1.4% Soln 180 Ml Btl) 2 sprays MT TID PRN PRN Reason: sore throat Stop: 08/22/20 12:15 Last Admin: 07/28/20 08:28 Dose: 2 sprays Documented by: Polyethylene Glycol (Polyethylene (Miralax) 17 Gm Pack) 17 gm PO DAILY PRN PRN Reason: Constipation Stop: 08/20/20 20:17 Vitamin B Complex/Folic Acid (Ne[facility]rocaps) [facility] Stop: 08/30/20 08:59 Last Admin: 08/03/20 08:03 Dose: 1 cap Documented by: Vitamin D (Cholecalciferol 1,000 Units 25 Mcg Tab) 2,000 units PO QAM [facility] Stop: 09/03/20 08:59 Last Admin: 08/05/20 09:14 Dose: 2,000 units Documented by: Zinc Sulfate (Zinc Sulfate 220 Mg Capsule) 220 mg PO QAM [facility] Stop: 08/24/20 08:59 Last Admin: 08/05/20 09:14 Dose: 220 mg Documented by:
[2020-08-06] MEDS: INSULIN ASPART 100 UNITS/ML 3 ML PEN SC SCH ×6 (00:20→21:57)
[2020-08-06 06:30] LABS: Hematocrit (blood only) 45.1 % (42-52); Hemoglobin 14.5 g/dL (14.0-18.0); Mean Corpuscular Hemoglobin 29.7 pg (25-34); Mean Corpuscular Hgb Conc 32.2 g/dL (32-36); Mean Corpuscular Volume 92.2 fL (80-100); Mean Platelet Volume 11.8 fL (7.4-10.4); Platelet Count 261 K/uL (130-400); RDW Coefficient of Variation 14.8 % (11.5-14.5); RDW Standard Deviation 49.3 fL (36.4-46.3); Red Blood Count 4.89 M/uL (4.7-6.1); White Blood Count 24.59 K/uL (4.8-10.8)
[2020-08-06 07:03] LABS: BUN Creatinine Ratio 73.3 (10-20); Calcium 9.7 mg/dl (8.5-10.1); Creatinine Clr Calc Pharmacy 48.9 ml/min; Est GFR (African American) 52.6; Est GFR (Non-African American) 45.4; Potassium 4.6 mmol/L (3.5-5.1)
[2020-08-06 07:20] LABS: C Reactive Protein 4.09 mg/dl (0-0.29); Ferritin 2516.4 ng/ml (8-388)
[2020-08-06 07:28] LABS: Basophils # (auto) 0.01 K/uL (0-0.2); Eosinophils # (auto) 0.01 K/uL (0-0.5); Immature Granulocytes # (auto) 0.12 K/uL (0.00-0.02); Immature Granulocytes % (auto) 0.5 %; Lymphocytes # (auto) 8.88 K/uL (1.2-3.4); Lymphocytes % (auto) 36.1 %; Monocytes # (auto) 1.16 K/uL (0.11-0.59); Monocytes % (auto) 4.7 %; Neutrophils # (auto) 14.41 K/uL (1.4-6.5); Neutrophils % (auto) 58.7 %
--- NOTE | 2020-08-06 09:23 | Pharmacy Report ---
Pharmacy Glycemic Short Note 2 - Date of Service August 06, 2020 - Glycemic Short BSG Results (Last 24 hours): 08/05/20 08/05/20 08/05/20 11:08 12:47 16:04 Glucose POC Glucose 175 H 241 H 199 H 08/05/20 08/06/20 08/06/20 20:12 00:02 04:16 Glucose POC Glucose 209 H 170 H 122 H 08/06/20 08/06/20 05:27 07:36 Glucose 114 H POC Glucose 136 H OUTPATIENT ANTIDIABETIC REGIMEN: * Glyburide 2.5mg daily * Repaglinide 2mg prior to meals * Pioglitazone 45mg daily * Sitagliptin 50mg Q AM * A1c = 10.2% 07/22/20 ASSESSMENT: 08/06 * Patient received total of 90 units of insulin yesterday, of which 50 were basal * Fasting BSG this AM w/in range at 114 mg/dL * IV dextrose fluids d/c last evening, would expect improvement in BSGs, continues on Dex 6 iv daily * Continue scale for basal insulin PLAN FOR INPATIENT GLYCEMIC CONTROL: * Hold outpatient oral diabetes medications * Lantus 15-25 units BID based upon BSG value / see emar for more details * Bolus insulin * NovoLog per scale ACHS or Q6hrs while NPO * Goal Range: Low 110 mg/dL - High 140 mg/dL * Tighten: Correction Factor: 10 mg/dL/unit * Tighten: Nutritional / Prandial insulin per carb ratio of 1 unit per 3 grams CHO consumed consumed PLAN FOR DISCHARGE: * to be determined
[2020-08-06] MEDS: ENOXAPARIN INJ 40 MG/0.4 ML SYR SQ SCH (09:31)
[2020-08-06] MEDS: ASCORBIC ACID 500 MG TAB PO SCH (09:31)
[2020-08-06] MEDS: ZINC SULFATE 220 MG CAPSULE PO SCH (09:31)
[2020-08-06] MEDS: CHOLECALCIFEROL 1,000 UNITS 25 MCG TAB PO SCH (09:31)
[2020-08-06] MEDS: dexAMETHasone 6 MG in SYRINGE 0 ML IV SCH (09:32)
[2020-08-06] MEDS: INSULIN GLARGINE SOLOSTAR 100 UNITS/ML 3 ML PEN SC SCH ×2 (09:32→21:57)
--- NOTE | 2020-08-06 11:53 | Hospitalist Progress Note ---
Date of Service August 06, 2020 Assessment & Plan (1) Acute respiratory failure with hypoxia: Acute respiratory failure 2/2 COVID pneumonia. Significant desaturation with minimal exertion continues but recruits easily with BIPAP. s/p CP with decrease in inflammatory markers. Diurese as tolerated to optimize pulmonary status; one dose given now. Mild hypernatremia from inselsible loss and decreased access to free water so D5W x 2 bags also given. Nutrition status discussed with fiber optic technician and education program manager. Dobhoff vs PPN considered. Trial full liquids. Cont to encourage position changes. (2) Acquired lymphocytosis: Notified that flow + and poss CLL dx. Discussed with Hematology in [facility] who recommends H/O follow-up as outpatient. Record review revealed no cell line abnormalities since 2016. (3) Pneumonia due to COVID-19 virus: Bilateral infiltrates with negative procalcitonin consistent with COVID pneumonia. Received course of azithromycin and ceftriaxone for possible concomi tant bacterial infection. (4) COVID-19: Symptoms since 07/16. SARS-CoV-2 done at retail pharmacy on 07/18 was positive. Associated malaise, cough, SOB, GI symptoms. COVID therapies: Received IV dexamethasone x 10 days. Received remdesivir x 5 days Did not extend course to 10 days because: unlikely to offer clinical benefit elevated LFT's -tranafused CP on 08/04 -Restarted daily dexamethasone 08/04 (5) Acute kidney injury: improved since admission. Nephro was involved at one point. Now around baseline. Lasix x 1 dose as above to improve respiratory status. Free water intravenous to improve mild hypernatremia. Will trend BMP in am. 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 Currently at inpatient goal on basal bolus insulin therapy. Cont BSG AcHs (8) Malnutrition: cont plan as above. If respiratory status not improving and he isn't able to sit up and eat well tomorrow, considering Dobhoff placement. Pulm will accept and manage small air leak this creates in the BIPAP mask if needed. Cont with supplementation. (9) Urinary retention: Acute urinary retention with Reddy placement in ED. Failed TOV with Reddy reinsertion on 07/31. Flomax on hold with relative hypotension. (10) DVT prophylaxis: Lovenox 40mg daily Full Code Dispo-cont PCU status. Updated son Ehsan by phone tonight. We discussed the possibility of a Dophoff vs PPN tomorrow if there are no improvements. He is good with the idea of the Dophoff. Jinny Grant DO [facility] Hospitalist. Admission and Anticipated Discharge Date Admission Date: July 21, 2020 Subjective Pt was on the hi flow oxygen for most of the morning today and doing well However he still decompensates w minimal movement and with sitting up for physical exam or in an attempt to eat. Na is up and mucous membranes dry consistent with dehydration, however, crackles now present on both lungs Pt reports feeling well and hanging in there. He is open to eating some food/drinking more free water today. Currently he is asking for vanilla pudding/ice cream and chocolate Boost so we are trying that. Oral hydration was encouraged. Review of Systems Review of Systems: All systems reviewed & are unremarkable except as noted in Subjective Physical Exam Physical Exam: CONSTITUTIONAL: WNWD, vitals as above, generally ill-appearing but comfortable on the BIPAP. Fatigued EYES: normal conjunctivae, no scleral icterus ENT: Abrasions to nose without drainage or erythema. Nose is wrapped. Mucous membranes are dry and sticky. Hi flow nasal canula in place. RESPIRATORY: fine crackles on left base and no w more present on the right, oxygen desaturation when sitting up and with minimal exertion or talking. Conv ersational dyspnea present. No wheezing or rales. Had to be placed back on BIPAP at the end of the exam with quick improvement in oxygen saturation from 76% to 93% after just a couple minutes of recruitment. CARDIOVASCULAR: tachy rate and regular rhythm, S1 and 2 heard without murmurs, gallops or rubs, no JVD, no peripheral edema GASTROINTESTINAL: soft, nontender, nondistended, no guarding. MUSCULOSKELETAL: generalized weakness. Moves around the bed independently. SKIN: warm and dry, breakdown on his nose. This is covered with a dry gauze. NEUROLOGIC: CN 2-12 grossly intact, normal cognition, no gross focal deficits. PSYCHIATRIC: alert cooperative and oriented Results & Data Results & Data ([facility]) Vital Signs (Past 12 Hours) Vital Signs Temp Pulse Pulse Resp BP Pulse Ox 08/06/20 08:38 36.4 C L 108 H 24 122/85 91 08/06/20 08:00 57 L 08/06/20 04:17 36.6 C 100 H 16 130/74 97 08/06/20 03:09 96 H 17 98 08/06/20 00:30 36.4 C L 100 H 19 110/85 93 08/06/20 00:17 36.4 C L 101 H 22 110/85 94 Laboratory Results Short CBC 08/06/20 Range/Units 05:27 WBC 24.59 H (4.8-10.8) K/uL Hgb 14.5 (14.0-18.0) g/dL Hct 45.1 (42-52) % Plt Count 261 (130-400) K/uL BMP 08/06/20 05:27 Sodium 146 H Potassium 4.6 Chloride 115 H Carbon Dioxide 27 BUN 108 H Creatinine 1.47 H D Glucose 114 H Calcium 9.7 Medications Administered Current Inpatient Medications Acetaminophen (Acetaminophen 325 Mg Tab) 650 mg PO Q4H PRN PRN Reason: Pain or Fever Stop: 08/20/20 20:17 Ascorbic Acid (Ascorbic Acid 500 Mg Tab) 1,000 mg PO QAM [facility] Stop: 09/03/20 08:59 Last Admin: 08/06/20 09:31 Dose: 1,000 mg Documented by: Atorvastatin Calcium (Atorvastatin 20 Mg Tab) 20 mg PO QPM@1999 [facility] Stop: 08/20/20 20:29 Last Admin: 08/02/20 21:30 Dose: 20 mg Documented by: Clotrimazole (Clotrimazole 10 Mg Cuong) 10 mg BUCCAL [id number] [facility] Stop: 08/09/20 14:59 Last Admin: 08/03/20 15:24 Dose: Not Given Documented by: Dextrose (Dextrose 50% 50 Ml Syringe) 25 - 50 ml IV UD PRN; Protocol PRN Reason: Hypoglycemia Protocol Stop: 08/20/20 20:17 Enoxaparin Sodium (Enoxaparin Inj 40 Mg/0.4 Ml Syr) 40 mg SQ QAM [facility] Stop: 09/04/20 08:59 Last Admin: 08/06/20 09:31 Dose: 40 mg Documented by: Famotidine (Famotidine 10 Mg Tablet) 10 mg PO BID@799,1999 [facility] Stop: 08/20/20 20:29 Last Admin: 08/03/20 08:03 Dose: 10 mg Documented by: Glucagon (Glucagon For Inj 1 Mg Vial) 1 mg SQ UD PRN; Protocol PRN Reason: Hypoglycemia Protocol Stop: 08/20/20 20:17 Glucose (Glucose 10 Tabs/Tube) 4 - 8 tabs PO UD PRN; Protocol PRN Reason: Hypoglycemia Protocol Stop: 08/20/20 20:17 Glucose (Glucose 40% Gel 15 Gm Tube) 15 - 30 gm PO UD PRN; Protocol PRN Reason: Hypoglycemia Protocol Stop: 08/20/20 20:17 Furosemide 30 mg/ Syringe 3 mls @ 4 mls/min IV [id number] [facility] Stop: 08/29/20 16:59 Last Admin: 07/31/20 17:38 Dose: 4 mls/min Documented by: Famotidine 20 mg/ Syringe 5 mls @ 2.5 mls/min IV Q12H PRN PRN Reason: acid reflux Stop: 09/02/20 16:29 Dexamethasone 6 mg/ Syringe 1.5 mls @ 1 mls/min IV DAILY [facility] Stop: 09/03/20 08:59 Last Admin: 08/06/20 09:32 Dose: 1 mls/min Documented by: Insulin Aspart (Insulin Aspart 100 Units/Ml 3 Ml Pen) 0 units SC Q4 [facility] Stop: 09/03/20 19:59 Last Admin: 08/06/20 09:27 Dose: Not Given Documented by: Insulin Glargine (Insulin Glargine Solostar 100 Units/Ml 3 Ml Pen) 0 units SC BID [facility]; Protocol Stop: 09/03/20 20:59 Last Admin: 08/06/20 09:32 Dose: 20 units Documented by: Levalbuterol HCl (Levalbuterol Tartrate 15 Gm Hfa.Aer.Ad) 2 puffs INH Q4H PRN PRN Reason: sob/wheeze Stop: 09/03/20 04:21 Lidocaine (Lidocaine Hcl 5% Oint 30 Gm Tube) 1 appln EXT Q4H PRN PRN Reason: Pain Stop: 08/31/20 21:02 Last Admin: 08/02/20 08:06 Dose: 1 appln Documented by: Miscellaneous (Carbohydrates For Hypoglycemia ) 15 - 30 gm PO UD PRN PRN Reason: Hypoglycemia Protocol Stop: 08/20/20 20:17 Miscellaneous Information (Pharmacy Glycemic Mgmt Consult) 1 ea N/A UD PRN; Protocol PRN Reason: Consult Stop: 08/20/20 20:32 Ondansetron HCl (Ondansetron Inj 2 Mg/Ml 2 Ml Vial) 4 mg IV Q6H PRN PRN Reason: Nausea Stop: 08/20/20 20:17 Phenol (Chloraseptic 1.4% Soln 180 Ml Btl) 2 sprays MT TID PRN PRN Reason: sore throat Stop: 08/22/20 12:15 Last Admin: 07/28/20 08:28 Dose: 2 sprays Documented by: Polyethylene Glycol (Polyethylene (Miralax) 17 Gm Pack) 17 gm PO DAILY PRN PRN Reason: Constipation Stop: 08/20/20 20:17 Vitamin B Complex/Folic Acid (Nephrocaps) 1 cap PO [facility] Stop: 08/30/20 08:59 Last Admin: 08/03/20 08:03 Dose: 1 cap Documented by: Vitamin D (Cholecalciferol 1,000 Units 25 Mcg Tab) 2,000 units PO [facility] Stop: 09/03/20 08:59 Last Admin: 08/06/20 09:31 Dose: 2,000 units Documented by: Zinc Sulfate (Zinc Sulfate 220 Mg Capsule) 220 mg PO [facility] Stop: 08/24/20 08:59 Last Admin: 08/06/20 09:31 Dose: 220 mg Documented by:
[2020-08-06] MEDS ORDERED: FUROSEMIDE 40 MG in SYRINGE 0 ML IV STA (14:54)
[2020-08-06] MEDS ORDERED: FUROSEMIDE 40 MG/4 ML VIAL IV STA (14:58)
--- NOTE | 2020-08-06 15:48 | XRay Report ---
XR chest 1V portable CLINICAL HISTORY: hypoxia/covid COMPARISON STUDY: Chest radiograph August 04, 2020. FINDINGS: Lung volumes are normal. There is no pneumothorax. Suspected trace left pleural effusion is noted. Interstitial thickening and bilateral opacities persist. Cardiomediastinal silhouette is stab le. The appearance of the chest has not significantly changed. IMPRESSION: No significant change in diffuse interstitial thickening and bilateral airspace opacitie s since chest radiograph of August 04, 2020. ACT 112: Negative or not required by law. Electronically signed by: Kal Hill M.D. 08/06/2020 3:46 PM
[2020-08-06] MEDS: DEXTROSE 5% 1,000 ML IV SCH (16:51)
[2020-08-07] MEDS: INSULIN ASPART 100 UNITS/ML 3 ML PEN SC SCH ×7 (00:37→23:59)
[2020-08-07] MEDS: DEXTROSE 5% 1,000 ML IV SCH (04:14)
[2020-08-07 06:57] LABS: BUN Creatinine Ratio 62.9 (10-20); Calcium 9.5 mg/dl (8.5-10.1); Creatinine Clr Calc Pharmacy 40.6 ml/min; Est GFR (Non-African American) 36.2; Magnesium 3.2 mg/dl (1.8-2.4); Potassium 4.6 mmol/L (3.5-5.1)
[2020-08-07 06:58] LABS: Phosphorus 4.8 mg/dl (2.5-4.9)
[2020-08-07] MEDS: dexAMETHasone 6 MG in SYRINGE 0 ML IV SCH (09:10)
[2020-08-07] MEDS: INSULIN GLARGINE SOLOSTAR 100 UNITS/ML 3 ML PEN SC SCH ×2 (09:12→20:25)
[2020-08-07] MEDS: CHOLECALCIFEROL 1,000 UNITS 25 MCG TAB PO SCH (09:14)
[2020-08-07] MEDS: ENOXAPARIN INJ 40 MG/0.4 ML SYR SQ SCH (09:15)
[2020-08-07] MEDS: ASCORBIC ACID 500 MG TAB PO SCH (09:15)
[2020-08-07] MEDS: ZINC SULFATE 220 MG CAPSULE PO SCH (09:16)
[2020-08-07] MEDS ORDERED: INSULIN GLARGINE SOLOSTAR 100 UNITS/ML 3 ML PEN SC ONE (12:00)
[2020-08-07] MEDS: CLOTRIMAZOLE 10 MG TROCHE BUCCAL SCH ×4 (12:07→23:58)
--- NOTE | 2020-08-07 16:14 | Hospitalist Progress Note ---
Date of Service August 07, 2020 Assessment & Plan (1) Acute respiratory failure with hypoxia: Acute respiratory failure 2/2 COVID pneumonia. Significant desaturation with minimal exertion continues but recruits easily with BIPAP. s/p CP with decrease in inflammatory markers. Diurese as tolerated to optimize pulmonary status. Free water given x 2 bags intravenously to combat insensible loss and decreased access to free water. Will plan to place Dophoff today as this will be when most staff available for complications should they arise. CT chest performed (08/07) with contrast-no PE was seen. (2) Acquired lymphocytosis: Notified that flow + and poss CLL dx. Discussed with Hematology in [facility] who recommends H/O follow-up as outpatient. Record review revealed no cell line abnormalities since 2016. (3) Pneumonia due to COVID-19 virus: Bilateral infiltrates with negative procalcitonin consistent with COVID pneumonia. Received course of azithromycin and ceftriaxone for possible concomitant bacterial infection. (4) COVID-19: Symptoms since 07/16. SARS-CoV-2 done at retail pharmacy on 07/18 was positive. Associated malaise, cough, SOB, GI symptoms. COVID therapies: Received IV dexamethasone x 10 days. Received remdesivir x 5 days Did not extend course to 10 days because: unlikely to offer clinical benefit elevated LFT's -tranafused CP on 08/04 -Restarted daily dexamethasone 08/04 (5) Acute kidney injury: improved since admission. Nephro was involved at one point. Now around baseline. Free water intravenous to improve mild hypernatremia. Will trend BMP in am. 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 Currently at inpatient goal on basal bolus insulin therapy. Cont BSG AcHs (8) Malnutrition: cont plan as above. Plan for Dobhoff today but nursing staff is short and may defer until tomorrow for safety. Pulm will accept and manage small air leak this creates in the BIPAP mask if needed. Cont with supplementation. (9) Urinary retention: Acute urinary retention with Reddy placement in ED. Failed TOV with Reddy reinsertion on 07/31. Flomax on hold with relative hypotension. (10) DVT prophylaxis: Lovenox 40mg daily. No blood clot on CT PE, no need for full dose AC in this patient. Full Code Dispo-cont PCU status. Updated son Ehsan by phone tonight. We discussed the possibility of a Dophoff vs PPN tomorrow if there are no improvements. He is good with the idea of the Dophoff. Jinny Grant DO [facility] Hospitalist. Admission and Anticipated Discharge Date Admission Date: July 21, 2020 Subjective Doing well lying supine Oxygenation drops significantly with minimal movement Not able to eat because cannot oxygenate when sitting up long enough to get anything in. Tried BIPAP in sitting position for 30-60 minutes then with transition to vapotherm, but still experienced desaturation Discussed Dophoff with nursing, however, nursing shortage and not ideal to place Dophoff at night with minimal staff Will plan to place in am. CT PE negative for blood blot. Review of Systems Review of Systems: All systems reviewed & are unremarkable except as noted in Subjective Physical Exam Physical Exam: CONSTITUTIONAL: WNWD, vitals as above, generally ill-appearing but comfortable on the BIPAP. Fatigued EYES: normal conjunctivae, no scleral icterus ENT: Abrasions to nose without drainage or erythema. Mucous membranes are dry and sticky. Hi flow nasal canula in place. RESPIRATORY: fine crackles on right base, clear to auscultation throughout on the left. Oxygen desaturation when sitting up and with minimal exertion or talking. No wheezing or rales. No increased work of breathing. Voice is strong. CARDIOVASCULAR: tachy rate and regular rhythm, S1 and 2 heard without murmurs, gallops or rubs, no JVD, no peripheral edema GASTROINTESTINAL: soft, nontender, nondistended, no guarding. MUSCULOSKELETAL: generalized weakness. Moves around the bed independently. SKIN: warm and dry, breakdown on his nose. NEUROLOGIC: CN 2-12 grossly intact, normal cognition, no gross focal deficits. PSYCHIATRIC: alert cooperative and oriented Results & Data Results & Data ([facility]) Vital Signs (Past 12 Hours) Vital Signs Temp Pulse Pulse Pulse Resp BP Pulse Ox 08/07/20 15:47 90 21 95 08/07/20 15:05 36.3 C L 101 H 18 115/80 92 08/07/20 11:09 110 H 16 92 08/07/20 11:05 36.5 C 104 H 16 130/89 99 08/07/20 09:47 102 H 24 92 08/07/20 07:30 36.5 C 90 13 118/77 93 08/07/20 07:26 59 L 08/07/20 07:09 100 H 16 94 08/07/20 05:56 93 H 18 95 Laboratory Results BMP 08/07/20 05:40 Sodium 146 H Potassium 4.6 Chloride 114 H Carbon Dioxide 27 BUN 111 H Creatinine 1.77 H D Glucose 133 H Calcium 9.5 Medications Administered Current Inpatient Medications Acetaminophen (Acetaminophen 325 Mg Tab) 650 mg PO Q4H PRN PRN Reason: Pain or Fever Stop: 08/20/20 20:17 Ascorbic Acid (Ascorbic Acid 500 Mg Tab) 1,000 mg PO QAM [facility] Stop: 09/03/20 08:59 Last Admin: 08/07/20 09:15 Dose: 1,000 mg Documented by: Atorvastatin Calcium (Atorvastatin 20 Mg Tab) 20 mg PO QPM@1999 [facility] Stop: 08/20/20 20:29 Last Admin: 08/02/20 21:30 Dose: 20 mg Documented by: Clotrimazole (Clotrimazole 10 Mg Cuong) 10 mg BUCCAL [id number] [facility] Stop: 08/09/20 14:59 Last Admin: 08/07/20 14:20 Dose: 10 mg Documented by: Dextrose (Dextrose 50% 50 Ml Syringe) 25 - 50 ml IV UD PRN; Protocol PRN Reason: Hypoglycemia Protocol Stop: 08/20/20 20:17 Enoxaparin Sodium (Enoxaparin Inj 40 Mg/0.4 Ml Syr) [facility] [place] Stop: 09/04/20 08:59 Last Admin: 08/07/20 09:15 Dose: 40 mg Documented by: Famotidine (Famotidine 10 Mg Tablet) 10 mg PO BID@799,1999 [facility] Stop: 08/20/20 20:29 Last Admin: 08/03/20 08:03 Dose: 10 mg Documented by: Glucagon (Glucagon For Inj 1 Mg Vial) 1 mg SQ UD PRN; Protocol PRN Reason: Hypoglycemia Protocol Stop: 08/20/20 20:17 Glucose (Glucose 10 Tabs/Tube) 4 - 8 tabs PO UD PRN; Protocol PRN Reason: Hypoglycemia Protocol Stop: 08/20/20 20:17 Glucose (Glucose 40% Gel 15 Gm Tube) 15 - 30 gm PO UD PRN; Protocol PRN Reason: Hypoglycemia Protocol Stop: 08/20/20 20:17 Famotidine 20 mg/ Syringe 5 mls @ 2.5 mls/min IV Q12H PRN PRN Reason: acid reflux Stop: 09/02/20 16:29 Dexamethasone 6 mg/ Syringe 1.5 mls @ 1 mls/min IV DAILY [facility] Stop: 09/03/20 08:59 Last Admin: 08/07/20 09:10 Dose: 1 mls/min Documented by: Dextrose (D5w) 1,000 mls @ 80 mls/hr IV .[id number] [facility] Stop: 08/07/20 16:44 Last Admin: 08/07/20 04:14 Dose: 80 mls/hr Documented by: Insulin Aspart (Insulin Aspart 100 Units/Ml 3 Ml Pen) 0 units SC Q4 [facility] Stop: 09/03/20 19:59 Last Admin: 08/07/20 12:09 Dose: 7 units Documented by: Insulin Glargine (Insulin Glargine Solostar 100 Units/Ml 3 Ml Pen) 0 units SC BID JACKY; Protocol Stop: 09/03/20 20:59 Last Admin: 08/07/20 09:12 Dose: 15 units Documented by: Levalbuterol HCl (Levalbuterol Tartrate 15 Gm Hfa.Aer.Ad) 2 puffs INH Q4H PRN PRN Reason: sob/wheeze Stop: 09/03/20 04:21 Lidocaine (Lidocaine Hcl 5% Oint 30 Gm Tube) 1 appln EXT Q4H PRN PRN Reason: Pain Stop: 08/31/20 21:02 Last Admin: 08/02/20 08:06 Dose: 1 appln Documented by: Miscellaneous (Carbohydrates For Hypoglycemia ) 15 - 30 gm PO UD PRN PRN Reason: Hypoglycemia Protocol Stop: 08/20/20 20:17 Miscellaneous Information (Pharmacy Glycemic Mgmt Consult) 1 ea N/A UD PRN; Protocol PRN Reason: Consult Stop: 08/20/20 20:32 Ondansetron HCl (Ondansetron Inj 2 Mg/Ml 2 Ml Vial) 4 mg IV Q6H PRN PRN Reason: Nausea Stop: 08/20/20 20:17 Phenol (Chloraseptic 1.4% Soln 180 Ml Btl) 2 sprays MT TID PRN PRN Reason: sore throat Stop: 08/22/20 12:15 Last Admin: 07/28/20 08:28 Dose: 2 sprays Documented by: Vitamin B Complex/Folic Acid (Nephrocaps) 1 cap PO [facility] Stop: 08/30/20 08:59 Last Admin: 08/03/20 08:03 Dose: 1 cap Documented by: Vitamin D (Cholecalciferol 1,000 Units 25 Mcg Tab) 2,000 units PO [facility] Stop: 09/03/20 08:59 Last Admin: 08/07/20 09:14 Dose: 2,000 units Documented by: Zinc Sulfate (Zinc Sulfate 220 Mg Capsule) 220 mg PO [facility] Stop: 08/24/20 08:59 Last Admin: 08/07/20 09:16 Dose: 220 mg Documented by:
[2020-08-07 17:56] LABS: BUN Creatinine Ratio 59.2 (10-20); Calcium 8.9 mg/dl (8.5-10.1); Creatinine Clr Calc Pharmacy 40.9 ml/min; Est GFR (African American) 42.3; Est GFR (Non-African American) 36.5; Potassium 5.3 mmol/L (3.5-5.1)
[2020-08-07] MEDS ORDERED: OPTIRAY 320 125ml IV ONE (20:46)
[2020-08-08] MEDS: INSULIN ASPART 100 UNITS/ML 3 ML PEN SC SCH ×5 (04:26→21:59)
[2020-08-08 07:13] LABS: Hematocrit (blood only) 48.5 % (42-52); Hemoglobin 15.3 g/dL (14.0-18.0); Mean Corpuscular Hemoglobin 29.5 pg (25-34); Mean Corpuscular Hgb Conc 31.5 g/dL (32-36); Mean Corpuscular Volume 93.6 fL (80-100); Mean Platelet Volume 11.5 fL (7.4-10.4); Platelet Count 216 K/uL (130-400); RDW Coefficient of Variation 14.7 % (11.5-14.5); RDW Standard Deviation 49.8 fL (36.4-46.3); Red Blood Count 5.18 M/uL (4.7-6.1); White Blood Count 25.77 K/uL (4.8-10.8)
--- NOTE | 2020-08-08 07:43 | CT Scan Report ---
CT ANGIOGRAM OF THE CHEST CLINICAL HISTORY: Shortness of breath. Covid positive patient COMPARISON STUDY: Chest x-ray dated 08/06/2020 TECHNIQUE: Following the IV administration of 119 mL of Optiray-320, CT angiogram of the thorax was p erformed from the thoracic inlet to the lung bases utilizing the pulmonary embolus protocol. Images a re reviewed in the axial, sagittal, and coronal planes. IV contrast was administered without complica tion. MIP imaging was performed. A dose lowering technique was utilized adhering to the principles o f ALARA. CT DOSE: 696.67 mGy.cm FINDINGS: Within the upper abdomen, note is made of cholelithiasis. There is a 15 mm left adrenal nodule There is a multinodular right lobe the thyroid. The left lobe the thyroid appears small and contains a coarse calcification No pathologically enlarged axillary mediastinal or hilar lymph nodes were visualized. There was no evidence of thoracic aortic dilatation. There were no pulmonary artery filling defects to indicate acute pulmonary embolism. No pleural effusions are visualized. There is pulmonary emphysema. There are scattered bilateral solid pulmonary nodules the largest of wh ich is located within the right lower lobe measuring 19 mm. There are increased groundglass opacities with a lower lung zone predominance. There is a calcified left-sided pleurodiaphragmatic plaque IMPRESSION: 1. No evidence of acute pulmonary embolism 2. Pulmonary emphysema 3. Bilateral groundglass opacities with a lower lung zone predominance 4. Bilateral solid pulmonary nodules measuring up to 18 mm. A 2 month follow-up CT scan is recommend ed. 5. Cholelithiasis 6. 15 mm left adrenal nodule ACT 112: Negative or not required by law. Electronically signed by: Yomi Saab M.D. 08/08/2020 7:41 AM
[2020-08-08 07:44] LABS: Basophils # (auto) 0.01 K/uL (0-0.2); Eosinophils # (auto) 0.01 K/uL (0-0.5); Immature Granulocytes # (auto) 0.11 K/uL (0.00-0.02); Immature Granulocytes % (auto) 0.4 %; Lymphocytes # (auto) 10.36 K/uL (1.2-3.4); Lymphocytes % (auto) 40.2 %; Monocytes # (auto) 0.98 K/uL (0.11-0.59); Monocytes % (auto) 3.8 %; Neutrophils % (auto) 55.6 %
[2020-08-08 07:46] LABS: BUN Creatinine Ratio 60.7 (10-20); Calcium 9.6 mg/dl (8.5-10.1); Creatinine Clr Calc Pharmacy 44.1 ml/min; Est GFR (African American) 46.4; Potassium 5.1 mmol/L (3.5-5.1)
[2020-08-08 07:47] LABS: C Reactive Protein 1.23 mg/dl (0-0.29)
[2020-08-08] MEDS: CHOLECALCIFEROL 1,000 UNITS 25 MCG TAB PO SCH (08:58)
[2020-08-08] MEDS: ZINC SULFATE 220 MG CAPSULE PO SCH (08:58)
[2020-08-08] MEDS: ASCORBIC ACID 500 MG TAB PO SCH (08:58)
[2020-08-08] MEDS: dexAMETHasone 6 MG in SYRINGE 0 ML IV SCH (08:59)
[2020-08-08] MEDS: INSULIN GLARGINE SOLOSTAR 100 UNITS/ML 3 ML PEN SC SCH ×2 (08:59→21:59)
[2020-08-08] MEDS: CLOTRIMAZOLE 10 MG TROCHE BUCCAL SCH ×4 (09:03→17:17)
[2020-08-08] MEDS: ENOXAPARIN INJ 40 MG/0.4 ML SYR SQ SCH (09:03)
--- NOTE | 2020-08-08 14:57 | Pharmacy Report ---
Pharmacy Glycemic Short Note 2 - Date of Service August 08, 2020 - Glycemic Short BSG Results (Last 24 hours): 08/07/20 08/07/20 08/07/20 16:32 16:54 19:55 Glucose 266 H POC Glucose 268 H 239 H 08/07/20 08/08/20 08/08/20 23:57 04:03 04:04 Glucose POC Glucose 98 52 L* 66 L* 08/08/20 08/08/20 08/08/20 04:30 06:34 07:10 Glucose 101 H POC Glucose 170 H 102 H 08/08/20 10:54 Glucose POC Glucose 84 OUTPATIENT ANTIDIABETIC REGIMEN: * Glyburide 2.5mg daily * Repaglinide 2mg prior to meals * Pioglitazone 45mg daily * Sitagliptin 50mg Q AM * A1c = 10.2% 07/22/20 ASSESSMENT: 08/07 * Patient received 40 units of basal insulin and 44 units bolus insulin yesterday. Blood sugars have downtrended with a mild episode of hypoglycemia this morning, despite continuing steroids and similar amounts of basal insulin to days prior * Patient remains on dexamethasone, though PO intake remains poor. Given downtrending BSG, will slightly adjust lantus scale and loosen novolog CF/CR. Can consider changing novolog to q6 if BSGs remains well controlled. 08/06 * Patient received total of 90 units of insulin yesterday, of which 50 were basal * Fasting BSG this AM w/in range at 114 mg/dL * IV dextrose fluids d/c last evening, would expect improvement in BSGs, continues on Dex 6 iv daily * Continue scale for basal insulin PLAN FOR INPATIENT GLYCEMIC CONTROL: * Hold outpatient oral diabetes medications * Lantus 15-25 units BID based upon BSG value / see emar for more details * Bolus insulin * NovoLog per scale ACHS or Q6hrs while NPO * Goal Range: Low 110 mg/dL - High 140 mg/dL * Tighten: Correction Factor: 18 mg/dL/unit * Tighten: Nutritional / Prandial insulin per carb ratio of 1 unit per 6 grams CHO consumed consumed PLAN FOR DISCHARGE: * to be determined
--- NOTE | 2020-08-08 15:47 | XRay Report ---
KUB HISTORY: coresafe placement COMPARISON: None. FINDINGS: Feeding tube terminates in the fundus of the stomach. Interstitial thickening noted at the lung bases. Moderate well-formed stool within the colon and rectum. No evidence for bowel obstruction . Vascular calcifications are noted. No renal calculi. No ureteral calculi. No pneumoperitoneum or p neumatosis. IMPRESSION: The feeding tube terminates in the fundus of the stomach. ACT 112: Negative or not required by law. Electronically signed by: Kevin Fontanez M.D. 08/08/2020 3:46 PM
--- NOTE | 2020-08-08 17:37 | Hospitalist Progress Note ---
Date of Service August 08, 2020 Assessment & Plan (1) Acute respiratory failure with hypoxia: Acute respiratory failure 2/2 COVID pneumonia. Significant desaturation with minimal exertion continues but recruits easily with BIPAP. Wean off Vapotherm hi flow as tolerated. s/p Convalescent plasma with decrease in inflammatory markers. Diurese as tolerated to optimize pulmonary status, currently appears euvolemic. Free water flushes started with NGT placement today (08/08) to help combat insensible losses and mild hypernatremia. (2) Acquired lymphocytosis: Notified that flow + and poss CLL dx-final reuslts still pending. Discussed with Hematology in [facility] who recommends Hematology follow-up as outpatient. Record review revealed no cell line abnormalities since 2016. (3) Pneumonia due to COVID-19 virus: Bilateral infiltrates with negative procalcitonin consistent with COVID pneumonia. Received course of azithromycin and ceftriaxone for possible concomitant bacterial infection. (4) COVID-19: Symptoms since 07/16. SARS-CoV-2 done at retail pharmacy on 07/18 was positive. Associated malaise, cough, SOB, GI symptoms. COVID therapies: Received IV dexamethasone x 10 days. Received remdesivir x 5 days Did not extend course to 10 days because: unlikely to offer clinical benefit elevated LFT's -tranafused CP on 08/04 -Restarted daily dexamethasone 08/04, started taper of this again on 08/08 by 2mg IV daily. Should complete course on 08/12. (5) Acute kidney injury: improved since admission. Nephro was involved at one point. Now around baseline. Free water intravenous to improve mild hypernatremia. Will trend BMP in am. 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 Currently at inpatient goal on basal bolus insulin therapy. Cont BSG AcHs (8) Malnutrition: cont plan as above. Pt cannot tolerate sitting position from a respiratory standpoint long enough to eat. Failed PO trial so NGT placed today. Starting Peptamen 1.5 at 20cc/hr with free water flushes. Goal per Service Tech is 50 cc/hr. Pulm will accept and manage small air leak this creates in the BIPAP mask if needed. Cont with supplementation. (9) Urinary retention: Acute urinary retention with Reddy placement in ED. Failed TOV with Reddy reinsertion on 07/31. Flomax on hold with relative hypotension. (10) DVT prophylaxis: Lovenox 40mg daily-no need for full dose anticoagulation in this patient. Full Code Dispo-cont PCU status. Updated son by phone. Dr. Mcknight taking over care tomorrow. Jinny Grant DO [facility] Hospitalist. Admission and Anticipated Discharge Date Admission Date: July 21, 2020 Subjective Pt feels improved today Lungs are now CTA bilaterally Still desaturates easily wtih repositioning. BIPAP most of the morning because of safety with transfers Transitioned easily to Vapotherm this afternoon NGt placed for feedings Started Peptamen after placement. Gradually increased as tolerated and keep HOB>30 degrees with aspiration precautions at all times. Son updated by phone this evening. Review of Systems Review of Systems: All systems reviewed & are unremarkable except as noted in Subjective Physical Exam Physical Exam: CONSTITUTIONAL: WNWD, vitals as above, generally well appearing. Fatigued EYES: normal conjunctivae, no scleral icterus ENT: Abrasions to nose without drainage or erythema-healing. MM moist. RESPIRATORY: CTA throughout-no crackles, wheezes or rales. Oxygen desaturation when sitting up and with minimal exertion or talking. No increased work of breathing. Voice is strong. CARDIOVASCULAR: tachy rate and regular rhythm, S1 and 2 heard without murmurs, gallops or rubs, no JVD, no peripheral edema GASTROINTESTINAL: soft, nontender, nondistended, no guarding. MUSCULOSKELETAL: generalized weakness. Moves around the bed independently. SKIN: warm and dry, breakdown on his nose. NEUROLOGIC: CN 2-12 grossly intact, normal cognition, no gross focal deficits. PSYCHIATRIC: alert cooperative and oriented Results & Data Results & Data ([facility]) Vital Signs (Past 12 Hours) Vital Signs Temp Pulse Pulse Pulse Resp BP BP 08/08/20 14:32 107 H 17 08/08/20 13:00 106 H 19 08/08/20 11:22 36.5 C 103 H 18 116/80 08/08/20 09:57 108 H 21 08/08/20 09:14 36.4 C L 100 H 24 91/63 L 08/08/20 08:30 97 H 08/08/20 07:40 97 H 15 Pulse Ox 08/08/20 14:32 97 10/26/20 13:00 98 08/08/20 11:22 100 08/08/20 09:57 89 L 08/08/20 09:14 88 L 08/08/20 08:30 08/08/20 07:40 97 Laboratory Results Short CBC 08/08/20 Range/Units 06:34 WBC 25.77 H (4.8-10.8) K/uL Hgb 15.3 (14.0-18.0) g/dL Hct 48.5 (42-52) % Plt Count 216 (130-400) K/uL BMP 08/07/20 08/08/20 16:54 06:34 Sodium 143 146 H Potassium 5.3 H D 5.1 Chloride 109 H 113 H Carbon Dioxide 27 27 BUN 104 H 99 H Creatinine 1.76 H 1.63 H Glucose 266 H 101 H Calcium 8.9 9.6 Medications Administered Current Inpatient Medications Acetaminophen (Acetaminophen 325 Mg Tab) 650 mg PO Q4H PRN PRN Reason: Pain or Fever Stop: 08/20/20 20:17 Ascorbic Acid (Ascorbic Acid 500 Mg Tab) 1,000 mg PO QAM [facility] Stop: 09/03/20 08:59 Last Admin: 08/08/20 08:58 Dose: 1,000 mg Documented by: Atorvastatin Calcium (Atorvastatin 20 Mg Tab) 20 mg PO QPM@1999 [facility] Stop: 08/20/20 20:29 Last Admin: 08/02/20 21:30 Dose: 20 mg Documented by: Clotrimazole (Clotrimazole 10 Mg Cuong) 10 mg BUCCAL [id number] [facility] Stop: 08/09/20 14:59 Last Admin: 08/08/20 17:17 Dose: 10 mg Documented by: Dextrose (Dextrose 50% 50 Ml Syringe) 25 - 50 ml IV UD PRN; Protocol PRN Reason: Hypoglycemia Protocol Stop: 08/20/20 20:17 Enoxaparin Sodium (Enoxaparin Inj 40 Mg/0.4 Ml Syr) 40 mg SQ QAM [facility] Stop: 09/04/20 08:59 Last Admin: 08/08/20 09:03 Dose: 40 mg Documented by: Famotidine (Famotidine 10 Mg Tablet) 10 mg PO BID@799,1999 [facility] Stop: 08/20/20 20:29 Last Admin: 08/03/20 08:03 Dose: 10 mg Documented by: Glucagon (Glucagon For Inj 1 Mg Vial) 1 mg SQ UD PRN; Protocol PRN Reason: Hypoglycemia Protocol Stop: 08/20/20 20:17 Glucose (Glucose 10 Tabs/Tube) 4 - 8 tabs PO UD PRN; Protocol PRN Reason: Hypoglycemia Protocol Stop: 08/20/20 20:17 Glucose (Glucose 40% Gel 15 Gm Tube) 15 - 30 gm PO UD PRN; Protocol PRN Reason: Hypoglycemia Protocol Stop: 08/20/20 20:17 Famotidine 20 mg/ Syringe 5 mls @ 2.5 mls/min IV Q12H PRN PRN Reason: acid reflux Stop: 09/02/20 16:29 Dexamethasone 6 mg/ Syringe 1.5 mls @ 1 mls/min IV DAILY [facility] Stop: 09/03/20 08:59 Last Admin: 08/08/20 08:59 Dose: 1 mls/min Documented by: Insulin Aspart (Insulin Aspart 100 Units/Ml 3 Ml Pen) 0 units SC Q4 [facility] Stop: 09/03/20 19:59 Last Admin: 08/08/20 17:15 Dose: Not Given Documented by: Insulin Glargine (Insulin Glargine Solostar 100 Units/Ml 3 Ml Pen) 0 units SC BID JACKY; Protocol Stop: 09/03/20 20:59 Last Admin: 08/08/20 08:59 Dose: 15 units Documented by: Levalbuterol HCl (Levalbuterol Tartrate 15 Gm Hfa.Aer.Ad) 2 puffs INH Q4H PRN PRN Reason: sob/wheeze Stop: 09/03/20 04:21 Lidocaine (Lidocaine Hcl 5% Oint 30 Gm Tube) 1 appln EXT Q4H PRN PRN Reason: Pain Stop: 08/31/20 21:02 Last Admin: 08/02/20 08:06 Dose: 1 appln Documented by: Miscellaneous (Carbohydrates For Hypoglycemia ) 15 - 30 gm PO UD PRN PRN Reason: Hypoglycemia Protocol Stop: 08/20/20 20:17 Miscellaneous Information (Pharmacy Glycemic Mgmt Consult) 1 ea N/A UD PRN; Protocol PRN Reason: Consult Stop: 08/20/20 20:32 Ondansetron HCl (Ondansetron Inj 2 Mg/Ml 2 Ml Vial) 4 mg IV Q6H PRN PRN Reason: Nausea Stop: 08/20/20 20:17 Phenol (Chloraseptic 1.4% Soln 180 Ml Btl) 2 sprays MT TID PRN PRN Reason: sore throat Stop: 08/22/20 12:15 Last Admin: 07/28/20 08:28 Dose: 2 sprays Documented by: Vitamin B Complex/Folic Acid (Nephrocaps) 1 cap PO [facility] Stop: 08/30/20 08:59 Last Admin: 08/03/20 08:03 Dose: 1 cap Documented by: Vitamin D (Cholecalciferol 1,000 Units 25 Mcg Tab) 2,000 units PO [facility] Stop: 09/03/20 08:59 Last Admin: 08/08/20 08:58 Dose: 2,000 units Documented by: Zinc Sulfate (Zinc Sulfate 220 Mg Capsule) 220 mg PO [facility] Stop: 08/24/20 08:59 Last Admin: 08/08/20 08:58 Dose: 220 mg Documented by:
[2020-08-08] MEDS ORDERED: ACETAMINOPHEN 1,000 MG/100 ML VIAL IV PRN (18:24)
[2020-08-08] MEDS ORDERED: PEPTAMEN 1.5 CAL 1,000 ML BAG NG SCH (18:30)
[2020-08-08] MEDS ORDERED: PEPTAMEN 1.5 CAL 1,000 ML BAG PO SCH (18:30)
[2020-08-08] MEDS ORDERED: FAMOTIDINE 10 MG TABLET PO PRN (18:31)
[2020-08-08] MEDS ORDERED: ATORVASTATIN 20 MG TAB NG SCH (20:00)
[2020-08-08] MEDS: TUBE FEEDING WATER FLUSH NG SCH (21:04)
[2020-08-09] MEDS: TUBE FEEDING WATER FLUSH NG SCH ×5 (00:52→13:43)
[2020-08-09] MEDS: CLOTRIMAZOLE 10 MG TROCHE BUCCAL SCH ×3 (00:52→10:49)
[2020-08-09] MEDS: INSULIN ASPART 100 UNITS/ML 3 ML PEN SC SCH ×4 (01:08→11:31)
[2020-08-09] MEDS ORDERED: LEVALBUTEROL TARTRATE 15 GM HFA.AER.AD INH STA (04:45)
[2020-08-09] MEDS ORDERED: methylPREDNISolone 20 MG in SYRINGE 0 ML IV ONE (04:46)
--- NOTE | 2020-08-09 05:02 | Communication Note ---
Date of Service: August 09, 2020 Patient transferred to ICU for worsening respiratory distress on BiPAP. Patient son updated of developments over the phone.
[2020-08-09] MEDS ORDERED: RAPID SEQUENCE INDUCTION BAG ONE (05:26)
[2020-08-09] MEDS ORDERED: PROPOFOL IV EMULSION 10 MG/ML 100 ML VIAL IV ONE (05:51)
[2020-08-09] MEDS ORDERED: PROPOFOL BOLUS FROM BAG IV PRN (05:52)
[2020-08-09] MEDS ORDERED: STAT IV Infusion **Titration per Protocol STA ×3 (05:52→09:50)
--- NOTE | 2020-08-09 05:55 | Procedure Note ---
Procedure Note Date of Service August 09, 2020 Note INTUBATION PROCEDURE NOTE: Provider: KENDAL Hernandez Attending: Dr. Acevedo A time-out was completed verifying correct patient, procedure, site, positioning. Patient was evaluated and required intubation for progression of hypoxic respiratory failure secondary to COVID-19 pneumonia, now requiring mechanical ventilation. Sedative agent used: Etomidate Paralysis agent used: Succinylcholine Emergent consent was implied given patients rapidly declining clinical status and need for airway protection. The patient was prepared in the appropriate fashion. Sedation was achieved utilizing etomidate and succinylcholine, per Dr. Dias administration. The patient was easily ventilated using [id number] to achieve adequate oxygenation. A 7.0 Macedonian endotracheal tube was placed with the use of video assisted laryngoscope. Endotracheal tube was advanced through the vocal cords and into the trachea at a depth of 23 cm at the lip. The stylette was removed and balloon was inflated with 10mL of air. Appropriate Colorimetric change was appreciated. Bilateral breath sounds were heard without air sounds in the abdomen. Dr. Dias was present for the entire procedure. Post Intubation Chest X-ray confirms placement without pneumothorax, and ET tube was advanced 2 cm following chest x-ray. Patient tolerated the procedure well and there were no immediate complications. Coding CPT Codes Resuscitation - Resuscitation: 43547 Endotracheal Intubation, emergency ([id number]) [facility] Procedure Codes (Charges) Resuscitation Resuscitation: 73847 Endotracheal Intubation, emergency
[2020-08-09] MEDS ORDERED: fentaNYL DRIP 1,250 MCG/250 ML BAG IV SCH (06:00)
[2020-08-09] MEDS ORDERED: propofoL 1,000 MG/100 ML VIAL IV SCH (06:00)
[2020-08-09] MEDS ORDERED: ICU PROTOCOL FOR HYPERGLYCEMIA PRN (06:28)
--- NOTE | 2020-08-09 06:43 | XRay Report ---
XR chest 1V portable CLINICAL HISTORY: Shortness of breath. COMPARISON STUDY: Chest radiograph August 06, 2020. Chest CT August 07, 2020. FINDINGS: The tip of the nasogastric tube is within the gastric cardia. The tip of the endotracheal t ube is 9.9 cm above the nathan. There is no pneumothorax or pleural effusion. Interstitial thickening and bibasilar opacities persist. There is emphysema. IMPRESSION: 1. Tip of endotracheal tube 9.9 cm above the nathan. The tube could be advanced approximately 2 cm. 2. Persistent interstitial thickening and bilateral opacities. The findings could reflect an infectio us process or pulmonary edema superimposed upon emphysema. ACT 112: Negative or not required by law. Electronically signed by: Kal Hill M.D. 08/09/2020 6:41 AM
--- NOTE | 2020-08-09 06:44 | Procedure Note ---
Procedure Note Date of Service August 09, 2020 Note ARTERIAL LINE PROCEDURE NOTE: Procedure: Arterial Line Placement Attending: Dr. Acevedo Provider: KENDAL Hernandez Indication: Continuous blood pressure monitoring, frequent lab draws and ABGs Anesthesia: None Line placed emergently following rapid intubation with the need for continuous hemodynamic monitoring and frequent ABGs in Covid 19+ patient with severe hypoxic respiratory failure. A time-out was completed verifying correct patient, procedure, site, positioning, and implant(s) or special equipment if applicable. Allens test was performed to ensure adequate perfusion. Patients right wrist was prepped and draped in the usual sterile fashion. Ultrasound guidance was used to aid needle placement. A 20g Arrow arterial line was introduced into the right radial artery. Catheter was threaded, and the needle was removed with appropriate blood return. Good waveform was observed. The patient tolerated the procedure well. Confirmation of placement with ultrasound. Blood Loss: Minimal Complications: None Procedural Ultrasound Guidance: Procedure Date: 08/09/2020 Indication: Arterial line insertion Attending: Dr. Acevedo Provider: KENDAL Hernandez Artery Identified: YES Line confirmed in Artery with ultrasound: Yes Complications: NONE Patient tolerated procedure: WELL Coding CPT Codes Tubes, Drains, and Vasc Access - Tubes, Drains, and Vasc Access: [id number] Place Catheter In Artery ([id number]) Tubes, Drains, and Vasc Access - Tubes, Drains, and Vasc Access: [id number] Ultrasound Guidance For Vascular ([id number]) [facility] [place] Procedure Codes (Charges) Tubes, Drains, and Vasc Access Procedure 1: Tubes, Drains, and Vasc Access: [id number] Place Catheter In Artery Procedure 2: Tubes, Drains, and Vasc Access: [id number] Ultrasound Guidance For Vascular
[2020-08-09] MEDS ORDERED: MIDAZOLAM BOLUS FROM BAG IV PRN (07:20)
[2020-08-09] MEDS ORDERED: MIDAZOLAM HCL 125 MG/250 ML BAG IV SCH (07:30)
[2020-08-09 08:07] LABS: Hematocrit (blood only) 49.4 % (42-52); Hemoglobin 15.8 g/dL (14.0-18.0); Mean Corpuscular Hemoglobin 29.9 pg (25-34); Mean Corpuscular Volume 93.6 fL (80-100); Mean Platelet Volume 11.5 fL (7.4-10.4); Platelet Count 223 K/uL (130-400); RDW Coefficient of Variation 14.7 % (11.5-14.5); RDW Standard Deviation 49.2 fL (36.4-46.3); Red Blood Count 5.28 M/uL (4.7-6.1); White Blood Count 37.25 K/uL (4.8-10.8)
[2020-08-09 08:17] LABS: BUN Creatinine Ratio 52.5 (10-20); Calcium 9.8 mg/dl (8.5-10.1); Creatinine Clr Calc Pharmacy 34.7 ml/min; Est GFR (African American) 34.8; Magnesium 3.3 mg/dl (1.8-2.4); Potassium 5.1 mmol/L (3.5-5.1)
[2020-08-09 08:20] LABS: iSTAT Allen Test Pass; iSTAT Arterial Blood Gas HCO3 23 meg/L (19-24); iSTAT Arterial Blood Gas pCO2 41 mmHg (35-46); iSTAT Arterial Blood Gas pH 7.37 (7.35-7.45); iSTAT Arterial Blood Gas pO2 105 mmHg (80-95); iSTAT Carbon Dioxide 24 mmol/L (24-31); iSTAT FiO2 100 %; iSTAT Site L Radial
[2020-08-09 08:24] LABS: Phosphorus 6.6 mg/dl (2.5-4.9)
[2020-08-09 08:51] LABS: ALC (manual) 19.59 K/uL (1.2-3.4); ANC (manual) 16.09 K/uL (1.4-6.5); Lymphocytes # (manual) 19.59 K/uL (1.2-3.4); Lymphocytes % (manual) 52.6 %; Monocytes # (manual) 1.56 K/uL (0.11-0.59); Monocytes % (manual) 4.2 %; Neutrophils # (manual) 16.09 K/uL (1.4-6.5); Neutrophils % (manual) 43.2 %
[2020-08-09] MEDS ORDERED: CHOLECALCIFEROL 1,000 UNITS 25 MCG TAB NG SCH (09:00)
[2020-08-09] MEDS ORDERED: ZINC SULFATE 220 MG CAPSULE PO SCH (09:00)
[2020-08-09] MEDS ORDERED: LANSOPRAZOLE 30 MG SOLTAB NG SCH (09:00)
[2020-08-09] MEDS ORDERED: DEXAMETHASONE SOD PHOSPHATE 4 MG in SYRINGE 0 ML IV SCH (09:00)
[2020-08-09] MEDS ORDERED: NOREPINEPHRINE BIT INJ 8 MG in DEXTROSE 5% 500 ML IV SCH (10:00)
[2020-08-09] MEDS ORDERED: LACTATED RINGER'S 500 ML IV ONE (10:34)
--- NOTE | 2020-08-09 10:39 | Critical Care Consultation ---
Date of Consultation August 09, 2020 Assessment & Plan (1) Pneumonia due to COVID-19 virus: The patient was discussed on interdisciplinary rounds. We are continuing to wean his Decadron. He is not a candidate for remdesivir. Status post convalescent plasma. Continue full vent support with lung protective ventilation strategy. Continue sedation with Versed and fentanyl for now. We will transition him back to propofol once his blood pressure is improved. We are starting him on Levophed to maintain mean arterial pressure above 65. I suspect he has ischemic ATN with acute renal failure. We will give him another 500 mL bolus of lactated Ringer's. Pharmacy is following for hyper glycemia. We will give him tube feeds. Continue Prevacid for GI prophylaxis. Check a D-dimer today. Continue Lovenox at a prophylactic dose. Checking lactate. He does have a worsening leukocytosis. MRSA screen was negative. We are starting him on cefepime and Flagyl. Obtain blood cultures, urinalysis and sputum cultures. We will check a procalcitonin. Patient's prognosis is very poor. No family is available at bedside currently. Continue ICU care. CRITICAL CARE TIME - I have personally spent 50 minutes of critical care time in the direct management of this patient. This is a life/limb threatening event. This includes time spent evaluating patient, direct bedside care, chart review, placing orders, interpretation of diagnostic studies, discussion with consultants, patient, and family members, as well as other required patient management activities. This time is exclusive of all separately billable procedures, and teaching time and separate from and in addition to any other critical care service time. (2) Acute kidney injury: (3) Diabetes mellitus: (4) Leukocytosis: (5) Acquired lymphocytosis: History of Present Illness Reason for Consultation: Hypoxemic respiratory failure requiring intubation Requesting Physician: Hospitalist service Attending Physician: Hola Mcknight MD History of Present Illness I previously seen this patient in pulmonary consults. 75-year-old male recently diagnosed with COVID-19 pneumonia who has had a prolonged hospitalization requiring high flow nasal cannula. History is unobtainable from the patient currently as he is intubated and sedated. He had worsening respiratory failure overnight requiring BiPAP and also evidence of hypotension. He was intubated emergently by the overnight critical care provider. He has had ongoing hypotension and currently his blood pressure is 70s over 50s. He received a 500 cc bolus of half-normal saline. He also received IV Solu-Medrol overnight by the hospitalist. He received convalescent plasma during this hospitalization. He did not receive remdesivir as he was out of the window. He had an echo with an EF of 65 to 70%. [address] chest on 08/07 did not demonstrate any pulmonary embolism, but diffuse groundglass opacities were seen. He has chronic emphysema. Labs today suggest a worsening leukocytosis of 37,000. He was recently diagnosed with CLL. His renal function worsened from 1.63-2.07. Allergies Allergy/AdvReac Type Severity Reaction Status Date / Time No Known Allergies Allergy Verified 05/10/20 08:44 Home Medications Home Medications Medication Instructions Recorded Confirmed Type mupirocin 2 % topical ointment 1 appln TOP DAILY PRN gm 08/04/19 07/21/20 History repaglinide 2 mg tablet 2 mg PO AC 08/04/19 07/21/20 History sitagliptin 50 mg tablet 50 mg PO QAM 08/04/19 07/21/20 History triamcinolone acetonide 0.1 % 1 appln TOP DAILY PRN 08/04/19 07/21/20 History topical ointment atorvastatin 20 mg PO QPM 07/21/20 07/21/20 History glyburide 2.5 mg PO DAILYBB 07/21/20 07/21/20 History pioglitazone 45 mg PO QAM 07/21/20 07/21/20 History semaglutide [Rybelsus] 7 mg PO QAM 07/21/20 07/21/20 History valsartan-hydrochlorothiazide 1 tab PO QAM 07/21/20 07/21/20 History [Diovan HCT] Patient History Medical History CKD (chronic kidney disease), stage III Diabetes mellitus Diabetes mellitus type 2 with complications Dyslipidemia History of basal cell carcinoma (BCC) History of squamous cell carcinoma Hypertension Vitamin D deficiency Surgical History History of tonsillectomy S/P complete thyroidectomy Family History Father Heart disease Mother Rheumatoid arthritis Social History Smoking Status: Former smoker Smoking End Date: 1992; Second Hand Exposure: No; Do You Dip or Chew Tobacco: No; Tobacco Cessation Education Requested by Patient: No Hx Alcohol Use: Yes Alcohol type: hard liquor Alcohol Intake Frequency: 2-4 x/Month Hx Substance Use: No Communication Ability: Effective 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 No apparent distress. He is hypotensive. Eyes: PERRL, conjunctivae normal, anicteric sclerae ENMT: Wounds noted on the bridge of his nose from prolonged BiPAP use Neck: trachea midline, no thyromegaly Respiratory: Diffuse rhonchi bilaterally. Tachypneic. Cardiovascular: RRR, no murmur, no edema Gastrointestinal (Abdomen): normal bowel sounds, soft, nontender, no hepatosplenomegaly Musculoskeletal: no cyanosis or clubbing, extremities motor strength 5/5 Skin: no rashes, warm and dry Neurologic: PERRL, EOMI, accommodation nl, no face palsy, no dysarthria Psychiatric: A+Ox3, euthymic affect Results & Data Results & Data ([facility]) Vital Signs (Past 12 Hours) Vital Signs Temp Pulse Pulse Resp BP BP Pulse Ox 08/09/20 06:55 117 H 25 H 90 08/09/20 06:36 111 H 21 87/65 L 93 08/09/20 06:30 114 H 19 93 08/09/20 06:28 113 H 08/09/20 06:21 116 H 21 96/71 L 93 08/09/20 06:15 117 H 22 93 08/09/20 06:08 114 H 27 H 107/59 L 90 08/09/20 06:00 98.1 F 120 H 19 91 08/09/20 05:47 112 H 22 141/96 H 89 L 08/09/20 05:46 105 H 22 89 L 08/09/20 05:45 104 H 28 H 134/89 88 L 08/09/20 05:43 116 H 19 117/84 86 L 08/09/20 05:41 124 H 18 116/103 H 89 L 08/09/20 05:40 113 H 22 92 08/09/20 05:37 120 H 26 H 110/89 88 L 08/09/20 05:31 121 H 27 H 126/87 87 L 08/09/20 05:30 98.1 F 120 H 26 H 87 L 08/09/20 04:28 103 H 24 87 L 08/09/20 02:53 97.7 F 105 H 20 110/73 90 08/09/20 02:38 98 H 18 92 08/09/20 00:08 97.3 F L 101 H 18 102/70 90 08/08/20 23:39 102 H 08/08/20 23:35 100 H 22 91 I reviewed the vital signs, labs and imaging Coding Level of Care Code Critical Care 1st 30-74 mins Diagnoses Pneumonia due to COVID-19 virus U07.1; J12.89 Acute kidney injury N17.9 Diabetes mellitus E11.9 Leukocytosis D72.829 Acquired lymphocytosis D72.820 Time Spent (min) 50
[2020-08-09] MEDS: ENOXAPARIN INJ 40 MG/0.4 ML SYR SQ SCH (10:44)
[2020-08-09] MEDS: ASCORBIC ACID 500 MG TAB NG SCH ×2 (10:45→11:33)
[2020-08-09] MEDS: INSULIN GLARGINE SOLOSTAR 100 UNITS/ML 3 ML PEN SC SCH (10:46)
[2020-08-09] MEDS ORDERED: SENNOSIDES 8.8 MG/5 ML UDC PO PRN (10:49)
[2020-08-09] MEDS ORDERED: DOCUSATE SODIUM SYRUP 100 MG/10 ML UDC PO PRN (10:49)
[2020-08-09] MEDS ORDERED: ONDANSETRON 4 MG OD TAB SL PRN (10:53)
[2020-08-09] MEDS ORDERED: LORazepam 0.5 MG/1 ML VIAL IV PRN (10:53)
[2020-08-09] MEDS ORDERED: ATROPINE SULFATE 1% OP SOLN 2 ML BTL SL PRN (10:53)
[2020-08-09] MEDS ORDERED: ONDANSETRON INJ 2 MG/ML 2 ML VIAL IV PRN (10:53)
[2020-08-09] MEDS ORDERED: GLYCOPYRROLATE 0.2 MG/ML VIAL IV PRN (10:53)
[2020-08-09] MEDS ORDERED: LORazepam 0.5 MG TAB PO PRN (10:53)
[2020-08-09] MEDS ORDERED: MoRPHine SULFATE 2 MG/ML CARP IV PRN (10:53)
[2020-08-09] MEDS ORDERED: metroNIDAZOLE 500 MG/100 ML BAG IV SCH (11:00)
[2020-08-09] MEDS ORDERED: CEFEPIME 2,000 MG in SYRINGE 0 ML IV SCH (11:00)
--- NOTE | 2020-08-09 11:04 | Communication Note ---
Date of Service: August 09, 2020 I had a long discussion with the patient's son, Jhonatan Hathaway, who indicated to me that the patient would not want prolonged intubation or mechanical ventilation. He understands that he is in multiorgan failure with his kidneys and his lungs at this point he also understands that the patient is currently in septic shock and that the prognosis overall is very grim. After a long discussion we decided that the best approach would be to focus on the patient's comfort and he will be palliatively extubated. His son is very agreeable to this and thanked us for our care. Primary team was made aware. Coding Level of Care Code Critical Care 1st 30-74 mins Time Spent (min) 14
[2020-08-09 11:44] LABS: D Dimer 6290 ug/L FEU (0-500)
--- NOTE | 2020-08-09 13:23 | Hospitalist Progress Note ---
Date of Service August 09, 2020 Assessment & Plan (1) Acute respiratory failure with hypoxia: -75-year-old male diagnosed with COVID-19 pneumonia who was originally admitted on 07/21/2020 (Symptoms since 07/16/2020. SARS-CoV-2 done at retail pharmacy on 07/18 was positive. Associated malaise, cough, SOB, GI symptoms) -Received IV dexamethasone x 10 days. Received remdesivir x 5 days - Did not extend course to 10 days because unlikely to offer clinical benefit elevated liver function enzymes as per previous hospitalist notes. Patient received convalescent plasma during this hospitalization on 08/04/2020. Received course of azithromycin and ceftriaxone for possible concomitant bacterial infection. Restarted daily dexamethasone 08/04, started taper of this again on 08/08 by 2mg IV daily -Patient was monitored and treated on telemetry vaughn with high flow cannula . However overnight between 08/08/2020 to 08/09/2020 AM, patient had worsening respiratory failure overnight requiring BiPAP and also evidence of hypotension. He was intubated emergently by the overnight critical care provider. -ICU physician doctor Mauricio Acevedo continued the medical care of the patient with empiric IV cefepime and IV metronidazole. Then as per DR. Acevedo discussion with patient's son Jhonatan [phone] "that the patient would not want prolonged intubation or mechanical ventilation." Patient was extubated and plans for comfort care -ICU physician ordered IV Fentanyl - will hold off IV Fentanyl for now and give prn IV morphine / oral Roxanol as needed for pain or labored breathing, atropine prn for excessive oral or pulmonary secretions, ativan prn for anxiety or agitation - patient's prognosis is poor (2) Pneumonia due to COVID-19 virus: -Bilateral infiltrates with negative procalcitonin consistent with COVID pneumonia -other hospital course as above (3) COVID-19: -hospital course as above (4) Acquired lymphocytosis: -flow cytometry was performed on this admission and concerning for CLL (Chronic Lymphocytic Leukemia) -previous hospitalist had discussed the case with with Hematology in [facility] who recommended non-emergent outpatient Hematology follow-up (5) Acute kidney injury: -renal function returned to baseline during this admission (6) Hypertension: -comfort care care, no further blood pressure medications (7) Diabetes mellitus type 2 with complications: -HbA1C 10.2 -comfort care and no further insulin treatment (8) Malnutrition: -originally there were plans for enteral feeding (9) Urinary retention: -Acute urinary retention with Reddy placement in ED. Failed Trial of void, Reddy reinsertion on 07/31/2020 (10) DVT prophylaxis: -currently comfort care status Admission and Anticipated Discharge Date Admission Date: July 21, 2020 Subjective Patient is obtunded. He is nonresponsive. His breathing is somewhat labored but no acute pain. He has IV Fentanyl. He is on comfort care at this time and his overall prognosis is poor. Review of Systems Review of Systems: Unobtainable due to cognitive status Physical Exam Constitutional: + lethargic Eyes: eyes closed Neck: normal visual inspection Respiratory: + labored breathing Cardiovascular: Rate/Rhythm: + tachycardic Gastrointestinal (Abdomen): Inspection/Auscultation: abdomen normal to inspection Percussion/Palpation: abdomen soft Musculoskeletal: Head/Neck/Chest: normocephalic and head atraumatic Neurologic: + obtunded Results & Data Results & Data ([facility]) Vital Signs (Past 12 Hours) Vital Signs Temp Pulse Pulse Resp BP BP Pulse Ox 08/09/20 11:51 102 H 08/09/20 10:20 105 H 78/58 L 08/09/20 10:10 104 H 75/59 L 08/09/20 10:00 115 H 77/55 L 08/09/20 09:50 114 H 66/53 L 08/09/20 09:46 113 H 63/51 L 08/09/20 09:45 112 H 61/48 L 08/09/20 09:43 113 H 55/45 L 08/09/20 09:41 116 H 60/39 L 08/09/20 09:31 119 H 93/70 L 08/09/20 09:22 115 H 101/94 86 L 08/09/20 09:10 110 H 97/72 L 89 L 08/09/20 09:00 107 H 101/63 93 08/09/20 08:50 106 H 91/66 L 98 08/09/20 08:40 113 H 82/65 L 97 08/09/20 08:30 113 H 67/56 L 93 08/09/20 08:24 113 H 75/54 L 94 08/09/20 08:20 113 H 80/63 L 93 10/27/20 08:10 119 H 80/70 L 92 08/09/20 08:00 120 H 95/63 L 91 08/09/20 07:50 128 H 88/58 L 91 08/09/20 07:40 118 H 103/80 93 08/09/20 07:30 106 H 111/60 92 08/09/20 07:20 36.0 C L 107 H 78/59 L 91 08/09/20 07:10 110 H 74/59 L 92 08/09/20 07:00 118 H 96/77 L 93 08/09/20 06:55 117 H 25 H 90 08/09/20 06:36 111 H 21 87/65 L 93 08/09/20 06:30 114 H 19 93 08/09/20 06:28 113 H 08/09/20 06:21 116 H 21 96/71 L 93 08/09/20 06:15 117 H 22 93 08/09/20 06:08 114 H 27 H 107/59 L 90 08/09/20 06:00 36.7 C 120 H 19 91 08/09/20 05:47 112 H 22 141/96 H 89 L 08/09/20 05:46 105 H 22 89 L 08/09/20 05:45 104 H 28 H 134/89 88 L 08/09/20 05:43 116 H 19 117/84 86 L 08/09/20 05:41 124 H 18 116/103 H 89 L 08/09/20 05:40 113 H 22 92 08/09/20 05:37 120 H 26 H 110/89 88 L 08/09/20 05:31 121 H 27 H 126/87 87 L 08/09/20 05:30 36.7 C 120 H 26 H 87 L 08/09/20 04:28 103 H 24 87 L 08/09/20 02:53 36.5 C 105 H 20 110/73 90 08/09/20 02:38 98 H 18 92
[2020-08-09] MEDS ORDERED: MoRPHine SULFATE 5 MG/0.25 ML UDP PO PRN (13:46)
[2020-08-09] MEDS ORDERED: ETOMIDATE 2 MG/ML 20 ML VIAL IV ONE (20:06)
--- NOTE | 2020-08-09 20:28 | Death Pronouncement Note ---
Date of Service August 09, 2020 Pronouncement Note Admission Date Admission Date: July 21, 2020 Contributing Factors (1) Acute respiratory failure with hypoxia: (2) Pneumonia due to COVID-19 virus: (3) COVID-19: (4) Acquired lymphocytosis: (5) Acute kidney injury: (6) Hypertension: (7) Diabetes mellitus type 2 with complications: (8) Malnutrition: (9) Urinary retention: (10) DVT prophylaxis: Summary Additional details: PRONOUNCEMENT NOTE - Date: 08/09/2020 Time: 2007 I was contacted by nursing staff regarding the patients declining status and concerns for imminent demise. In short, patient was admitted with COVID-19 pneumonia and was intubated early this morning for hypoxic respiratory failure and failure of BiPAP. CODE STATUS was discussed with the patient's son earlier today and decision was made to withdraw care and pursue palliative measures with comfort care. Patient entered ventricular tachycardia on the monitor which soon progressed to asystole. Patient was pronounced at 2007 this evening. Assessment: I presented to the patients room for evaluation. Upon assessment, the patient was found to be in a terminal state. Pupils were fixed and dilated without response. No palpable pulses appreciated. No spontaneous breaths noted. Heart sounds were absent. Time of : 2007 as pronounced by myself. I contacted the patient's son on file for primary contact and told him that Mr. Hathaway had . Appropriate response to grief appreciated. Condolences provided. Questions were addressed. Patients primary service was contacted and made aware of patient demise. Pronouncement section of the Certificate was filled out and signed by myself. Cause of : Primary -COVID-19 Secondary -acute hypoxic respiratory failure Please feel free to contact me with any questions regarding the above-mentioned course. Additional Data Attending physician: Hola Mcknight MD Coding Level of Care Code None Diagnoses Acute respiratory failure with hypoxia J96.01 Pneumonia due to COVID-19 virus U07.1; J12.89 COVID-19 U07.1 Acquired lymphocytosis D72.820 Acute kidney injury N17.9 Hypertension I10 Diabetes mellitus type 2 with complications E11.8 Malnutrition E46 Urinary retention R33.9 DVT prophylaxis Z29.9
--- NOTE | 2020-08-10 07:08 | Discharge Summary ---
Date of Service August 10, 2020 Admission HPI Per Admitting Provider Patient is a 75-year-old male with history of diabetes mellitus, hypertension, CKD stage III, hypertensive retinopathy, dyslipidemia and other medical problems presents with history of worsening shortness of breath, wheezing, shakiness, cough since about 1 week duration. He was diagnosed to have COVID last --test done at local [facility]. He states that cough is nonproductive. Also noticed to have diarrhea since 1 week duration--loose watery, about 2 times per day, nonbloody. He was unsure how he contracted COVID. Reports generalized weakness and tiredness. As per the ER physician, patient was found to be confused by family today and patient's son called for ambulance. Patient reported that he was now confused throughout the course. He was noted to have oxygen saturations in the 50s by EMS and was placed on 15 L of nonrebreather. Currently while in ED saturations improved to low 90s. Denies any history of chest pain, palpitations, dizziness, pedal edema, hemoptysis, fever, fall, LOC, headache, change in vision, nausea, vomiting, abdominal pain, blood in stools, dysuria, hematuria, recent change in medications. Principal Diagnosis Acute respiratory failure with hypoxia Pneumonia due to COVID-19 virus Acquired lymphocytosis Diabetes mellitus type 2 with complications Acute kidney injury Urinary retention Comfort Care Discharge Exam Constitutional see Note on 08/09/20 Musculoskeletal Head/Neck/Chest: head atraumatic Discharge Data Allergies Allergy/AdvReac Type Severity Reaction Status Date / Time No Known Allergies Allergy Verified 05/10/20 08:44 Consultations 07/21/20 20:18 Consult Pulmonology Routine 07/22/20 08:00 Consult Nephrology Routine 08/09/20 10:54 Consult Case Management - Discharge Planning Routine Ordered Studies 08/07/20 18:24 CT angio chest PE protocol Stat Diabetes Follow up Diabetes Follow-up Needed for HgbA1c >9% Hospital Course (1) Acute respiratory failure with hypoxia: -75-year-old male diagnosed with COVID-19 pneumonia who was originally admitted on 07/21/2020 (Symptoms since 07/16/2020. SARS-CoV-2 done at retail pharmacy on 07/18 was positive. Associated malaise, cough, SOB, GI sympt oms) -Received IV dexamethasone x 10 days. Received remdesivir x 5 days - Did not extend course to 10 days because unlikely to offer clinical benefit elevated liver function enzymes as per previous hospitalist notes. Patient received convalescent plasma during this hospitalization on 08/04/2020. Received course of azithromycin and ceftriaxone for possible concomitant bacterial infection. Restarted daily dexamethasone 08/04, started taper of this again on 08/08 by 2mg IV daily -Patient was monitored and treated on telemetry vaughn with high flow cannula . However overnight between 08/08/2020 to 08/09/2020 AM, patient had worsening respiratory failure overnight requiring BiPAP and also evidence of hypotension. He was intubated emergently by the overnight critical care provider. -ICU physician doctor Mauricio Acevedo continued the medical care of the patient with empiric IV cefepime and IV metronidazole. Then as per DR. Acevedo discussion with patient's son Jhonatan [phone] "that the patient would not want prolonged intubation or mechanical ventilation." Patient was extubated and plans for comfort care -patient was then ordered medications for comfort care (ICU physician ordered IV Fentanyl, also there were other medications of IV morphine / oral Roxanol as needed for pain or labored breathing, atropine prn for excessive oral or pulmonary secretions, ativan prn for anxiety or agitation) -patient pronounced by ICU medical staff as below " PRONOUNCEMENT NOTE - Date: 08/09/2020 Time: 2007 I was contacted by nursing staff regarding the patients declining status and concerns for imminent demise. In short, patient was admitted with COVID-19 pneumonia and was intubated early this morning for hypoxic respiratory failure and failure of BiPAP. CODE STATUS was discussed with the patient's son earlier today and decision was made to withdraw care and pursue palliative measures with comfort care. Patient entered ventricular tachycardia on the monitor which soon progressed to asystole. Patient was pronounced at 2007 this evening. Assessment: I presented to the patients room for evaluation. Upon assessment, the patient was found to be in a terminal state. Pupils were fixed and dilated without response. No palpable pulses appreciated. No spontaneous breaths noted. Heart sounds were absent. Time of : 2007 as pronounced by myself. I contacted the patient's son on file for primary contact and told him that Mr. Hathaway had . Appropriate response to grief appreciated. Condolences provided. Questions were addressed. Patients primary service was contacted and made aware of patient demise. Pronouncement section of the Certificate was filled out and signed by myself. Cause of : Primary -COVID-19 Secondary -acute hypoxic respiratory failure Please feel free to contact me with any questions regarding the above-mentioned course. Signed By:<Electronically signed by Stephane EDMONDS>08/09/202027 <Electronically signed by Mauricio Acevedo MD>" (2) Pneumonia due to COVID-19 virus: -Bilateral infiltrates with negative procalcitonin consistent with COVID pneumonia -other hospital course as above (3) COVID-19: -hospital course as above (4) Acquired lymphocytosis: -flow cytometry was performed on this admission and concerning for CLL (Chronic Lymphocytic Leukemia) -previous hospitalist had discussed the case with with Hematology in [facility] who recommended non-emergent outpatient Hematology follow-up (5) Acute kidney injury: -renal function returned to baseline during this admission (6) Hypertension: -comfort care care (7) Diabetes mellitus type 2 with complications: -HbA1C 10.2 -comfort care (8) Malnutrition: -originally there were plans for enteral feeding (9) Urinary retention: -Acute urinary retention with Reddy placement in ED. Failed Trial of void, Reddy reinsertion on 07/31/2020 (10) DVT prophylaxis: -comfort care status Total Time Total Time Spent Total Time Spent (In Minutes): 10 Total Time Includes: Communication With Other Providers Discharge Plan Discharge Items Patient Disposition: Discharge Diagnosis: Acute respiratory failure with hypoxia Pneumonia due to COVID-19 virus Acquired lymphocytosis Diabetes mellitus type 2 with complications Acute kidney injury Urinary retention Comfort Care Addtl Attending Provider Instructions: " PRONOUNCEMENT NOTE - Date: 08/09/2020 Time: 2007 I was contacted by nursing staff regarding the patients declining status and concerns for imminent demise. In short, patient was admitted with COVID-19 pneumonia and was intubated early this morning for hypoxic respiratory failure and failure of BiPAP. CODE STATUS was discussed with the patient's son earlier today and decision was made to withdraw care and pursue palliative measures with comfort care. Patient entered ventricular tachycardia on the monitor which soon progressed to asystole. Patient was pronounced at 2007 this evening. Assessment: I presented to the patients room for evaluation. Upon assessment, the patient was found to be in a terminal state. Pupils were fixed and dilated without response. No palpable pulses appreciated. No spontaneous breaths noted. Heart sounds were absent. Time of : 2007 as pronounced by myself. I contacted the patient's son on file for primary contact and told him that Mr. Hathaway had . Appropriate response to grief appreciated. Condolences provided. Questions were addressed. Patients primary service was contacted and made aware of patient demise. Pronouncement section of the Certificate was filled out and signed by myself. Cause of : Primary -COVID-19 Secondary -acute hypoxic respiratory failure Please feel free to contact me with any questions regarding the above-mentioned course." Signed By:<Electronically signed by Stephane EDMONDS>08/09/202027 <Electronically signed by Mauricio Acevedo MD>
[2020-08-11] MEDS ORDERED: DEXAMETHASONE SOD PHOSPHATE 2 MG in SYRINGE 0 ML IV SCH (09:00)
--- NOTE | 2020-08-14 18:39 | Communication Note ---
Date of Service: August 14, 2020 Flow cytometry 07/31/20 demonstrated CLL. Son notified of results.
== END 2020-08-09 20:07 | disposition expired | DRG 208 ==
LOC: ED 13:58 → SUATTDRO 18:05 → 2S 18:05 → 2E 07-22 20:36 → 2S 08-08 11:14 → 1E 08-09 05:21